=== PATIENT | male | born 1930 | race Caucasian/White ===

== ENCOUNTER 2017-11-07 16:28 | Emergency (ER) | payer MEDICARE, OTHER ==
[2017-11-07] MEDS ORDERED: Metoclopramide 10 MG Tab PO ONE (17:30)
--- NOTE | 2017-11-07 17:36 | EDM.PDOC ---
ED HPI GENERAL MEDICAL PROBLEM - General Chief Complaint: Neurological Problem Stated Complaint: DIZZINESS Time Seen by Provider: 11/07/17 17:20 Source of Information: Reports: Patient, Family (spouse) History Limitations: Reports: No Limitations - History of Present Illness INITIAL COMMENTS - FREE TEXT/NARRATIVE: 87-year-old male presents to the ED with acute onset of vertigo this afternoon. It occurred after he got up from his easy chair where he had been watching football game. He got up and started to walk towards his who was setting up Scrabble game when he suddenly became very vertiginous and she had to help him back to the chair before he fell down. He never did vomit. It's the room was spinning. He is not as this sensation before. Of note he does wear bilateral hearing aids. He has not noticed any increased calming buzzing ringing or tinnitus in either ear. He has not recently been sick with any upper respiratory tract infections. When he lies still he is asymptomatic. He did require help to walk to the car to come to the hospital by his . By history he has known vertebrobasilar insufficiency and cannot look upwards or down a deep stairwell are well etc. as it throws him off balance. He does admit to getting dizzy when he gets up in the nighttime to void. But it's not involving a spinning sensation. This represents more orthostatic hypotensive changes. 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 (see below) (None.) - Related Data Allergies Allergy/AdvReac Type Severity Reaction Status Date / Time azithromycin [From Zithromax] Allergy Ringing in Verified 11/07/17 16:54 the Ears Home Meds: Home Meds Bimatoprost [LUMIGAN 0.01% Ophth Soln] 11/07/17 [History] Finasteride [Finasteride] 11/07/17 [History] Lisinopril [Prinivil] 10 mg PO DAILY 11/07/17 [History] Terazosin [Hytrin] 1 mg PO BID 11/07/17 [History] Past Medical History HEENT History: Reports: Glaucoma, Hard of Hearing (Wears a hearing aid in both ears.), Macular Degeneration Cardiovascular History: Reports: High Cholesterol, Hypertension, Other (See Below) (Has known vertebrobasilar insufficiency. Gets very lightheaded and dizzy when he hyperextends his neck or Hyperflex is his neck.) Social & Family History - Tobacco Use Smoking Status *Q: Unknown Ever Smoked - Living Situation & Occupation Living situation: Reports: Occupation: Retired ED ROS GENERAL - Review of Systems Review Of Systems: See Below Constitutional: Denies: Fever, Chills, Malaise, Weakness, Fatigue, Decreased Appetite, Weight Loss HEENT: Reports: Glasses, Hearing Loss (Wears hearing aid in both ears.), Vertigo Respiratory: Reports: Shortness of Breath. Denies: Wheezing, Pleuritic Chest Pain (On exertion.), Cough, Sputum Cardiovascular: Reports: Blood Pressure Problem, Dyspnea on Exertion, Lightheadedness (Usually when he gets up during the night to void suggesting some orthostasis. He's never been). Denies: Chest Pain, Claudication (Tends to run a bit high.), Edema ( to pass out.), Orthopnea, Palpitations (Chronically) Endocrine: Reports: Fatigue (Mild fatigue) GI/Abdominal: Reports: Constipation (Occasional issues with hard stools). Denies: Abdominal Pain : Reports: Other (Nocturia usually 3 has known BPH.) Musculoskeletal: Reports: Neck Pain (Knees and hips at times at times has neck pain. Has known vertebrobasilar insufficiency.), Back Pain, Joint Pain Skin: Reports: No Symptoms Neurological: Reports: Dizziness (When he gets up quickly from a seated position or gets up from sleep in the night he gets lightheaded and dizzy.), Difficulty Walking (Only today with the development of vertigo and ataxia.), Gait Disturbance. Denies: Change in Speech Psychiatric: Reports: No Symptoms (Again note only today when he developed vertigo.) Hematologic/Lymphatic: Reports: No Symptoms Immunologic: Reports: No Symptoms ED EXAM, DIZZINESS - Physical Exam Exam: See Below Exam Limited By: No Limitations General Appearance: Alert, WD/WN, No Apparent Distress Eye Exam: Right Eye: Nystagmus (Mild sustained nystagmus on right lateral gaze.) , Bilateral Eye: PERRL Nystagmus: worsens with head to L, reproducible, short duration Ears: Canal Material (Large amount of cerumen is impacted against the eardrum on the left side. Mild on the right side. Could not visualize the tympanic membrane on the left. Of note he wears hearing aids bilaterally which causes the cerumen to stay impacted.) Throat/Mouth: Normal Inspection, Normal Lips, Normal Teeth, Other (Uvula is in the midline.) Head Exam: Atraumatic, Normocephalic Neck: Normal Inspection, Limited Range of Motion, Tender Lateral (From C4-C7 bilaterally.). No: Full Range of Motion, Lymphadenopathy (L), Lymphadenopathy ( R) Respiratory/Chest: No Respiratory Distress, Lungs Clear, Normal Breath Sounds, Decreased Breath Sounds (Breath sounds are minimally decreased in the bases) Cardiovascular: Regular Rate, Rhythm, No Edema, No Gallop, No Murmur, No Rub. No: Normal Peripheral Pulses Neurological: Alert, Normal Mood/Affect, CN II-XII Intact, Oriented x 3, Other ( No pronator drift.). No: Abnormal Finger to Nose, Abnormal Motor (No pronator drift. Normal rapid alternating movements) Extremities: Normal Inspection, Normal Range of Motion, Non-Tender, No Pedal Edema Psychiatric: Normal Affect, Normal Mood Skin Exam: Warm, Dry, Intact, Normal Color, No Rash Course - Vital Signs Last Recorded V/S: Last Vital Signs Temp 36.2 C 11/07/17 16:49 Pulse 60 11/07/17 16:49 Resp 18 11/07/17 16:49 BP Pulse Ox 97 11/07/17 16:49 - Orders/Labs/Meds Orders: Active Orders 24 hr Category Date Time Status Ear Irrigation [RC] ASDIRECTED Care 11/07/17 17:29 Active Labs: Laboratory Tests 11/07/17 11/07/17 Range/Units 17:41 17:41 WBC 5.70 (4.23-9.07) K/mm3 RBC 4.08 L (4.63-6.08) M/mm3 Hgb 12.2 L (13.7-17.5) gm/L Hct 36.9 L (40.1-51.0) % MCV 90.4 (79.0-92.2) fl MCH 29.9 (25.7-32.2) pg MCHC 33.1 (32.2-35.5) g/dl RDW Std Deviation 44.4 H (35.1-43.9) fL Plt Count 208 (163-337) K/mm3 MPV 9.4 (9.4-12.3) fl Neutrophils % (Manual) 61 H (40-60) % Band Neutrophils % 0 (0-10) % Lymphocytes % (Manual) 25 (20-40) % Atypical Lymphs % 0 % Monocytes % (Manual) 9 (2-10) % Eosinophils % (Manual) 5 (0.8-7.0) % Basophils % (Manual) 0 L (0.2-1.2) Platelet Estimate Adequate Plt Morphology Comment Normal RBC Morph Comment Normal Sodium 137 (136-145) mEq/L Potassium 4.4 (3.5-5.1) mEq/L Chloride 105 (98-107) mEq/L Carbon Dioxide 25 (21-32) mEq/L Anion Gap 11.4 (5-15) BUN 19 H (7-18) mg/dL Creatinine 0.9 (0.7-1.3) mg/dL Est Cr Clr Drug Dosing 57.83 mL/min Estimated GFR (MDRD) > 60 (>60) mL/min BUN/Creatinine Ratio 21.1 H (14-18) Glucose 104 (83-115) mg/dL Calcium 8.4 L (8.5-10.1) mg/dL Magnesium 2.1 (1.8-2.4) mg/dl Total Bilirubin 0.3 (0.2-1.0) mg/dL AST 17 (15-37) U/L ALT 17 (16-63) U/L Alkaline Phosphatase 50 (46-116) U/L Total Protein 6.4 (6.4-8.2) g/dl Albumin 3.1 L (3.4-5.0) g/dl Globulin 3.3 gm/dL Albumin/Globulin Ratio 0.9 L (1-2) Meds: Medications Discontinued Medications Generic Name Dose Route Start Last Admin Trade Name Julita PRN Reason Stop Dose Admin Gentamicin Sulfate 2.5 ml 11/07/17 18:47 11/07/17 18:59 Garamycin 0.3% Lisa CASE 11/07/17 18:48 2 drop ONETIME ONE Administration Metoclopramide HCl 10 mg 11/07/17 17:30 11/07/17 17:50 Reglan PO 11/07/17 17:31 10 mg ONETIME ONE Administration - Radiology Interpretation Free Text/Narrative:: 87-year-old male presents the ED with an acute onset of vertigo this afternoon after getting up from the seated position. He was walking towards the table where his would set up a Scrabble game when he developed severe vertigo with the room spinning. This caused him to feel very off balance and his had to eat him back to the chair. Once he stops moving his vertigo goes away. He has no associated headache nausea or vomiting. He did require help walking up to the car to come to the hospital. At rest he again he has no symptoms. Examination reveals cerumen impaction on the left ear up against his eardrum which will be irrigated. Routine labs to be performed as his neuro exam is completely normal. I see no evidence of cerebrovascular accident on neuro exam. 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 Plan routine labs. Reglan 10 mg orally. Irrigation left ear canal - Re-Assessments/Exams Free Text/Narrative Re-Assessment/Exam: 11/07/17 18:15 Labs are back and reveal a normal white count at 5.70. Differential shows 61% neutrophils no bands. Hemoglobin is 12.2 with hematocrit of 36.9. Platelets are 208,000. Chemistry shows a sodium of 137. Potassium 4.4. Chloride 105. Bicarbonate 25. And a gap is normal at 11.4. BUNs 19. Creatinine is 0.9. Glucose is 104 calcium is 8.4 magnesium is normal at 2.1. Liver function normal. Albumin slightly low at 3.1. 11/07/17 18:50: Got him up walking and he actually did quite well. He is listing very mildly to the right side. He states he is way better than he was. He will therefore be discharged home on Antivert 12.5 mg every 8 hours for the next 5 days. When I did look at his left ear canal there is a large piece of skin that is denuded from the posterior ear canal after ear irrigation. I think he is at risk therefore an otitis externa and will place him on gentamicin eardrops 2 drops to the left ear for 3 times a day for 5 days to prevent infection. He will keep his hearing aid out of that ear until he is done with the drops. Follow-up as needed particularly if not markedly improved her symptoms persist after 5 days of Antivert. Departure - Departure Time of Disposition: 18:47 Disposition: Home, Self-Care 01 Condition: Fair Clinical Impression: Benign paroxysmal vertigo of left ear Left otitis externa Qualifiers: Otitis externa type: unspecified type Chronicity: acute Qualified Code(s): H60.502 - Unspecified acute noninfective otitis externa, left ear - Discharge Information Instructions: Otitis Externa, [id number], Vertigo, [id number] Referrals: Kelly Graham MD [Primary Care Provider] - Forms: ED Department Discharge Additional Instructions: Evaluation the emergency room today due to development of sudden onset of severe vertigo i.e. spinning sensation with loss of balance and swimming vision. Examination revealed no signs or evidence of stroke. Did identify the left ear canal was filled with ear wax pushed up against her eardrum which may or may not be the cause of the problem. It was irrigated out of your ear and I can easily see the eardrum at this time. However a piece of skin was also removed from the ear canal when the ear wax came out. This may become infected and therefore I would suggest use of gentamicin eardrops 2 drops to the left ear 3 times daily for the next 5 days to prevent any infection from occurring. These drops will be sent home with you from the hospital. I would suggest use of Antivert or meclizine which is [id number] medication and can be purchased at [facility]. Suggest using 12.5 mg or 1 tablet every 8 hours for the next 5 days to prevent or control vertigo symptoms. First tablet would be due at 10:00 tonight. Follow-up with personal physician if you're not completely back to normal in 6-7 days time. May start to wear your left hearing aid again in 5 days time - My Orders Last 24 Hours: My Active Orders 11/07/17 17:29 Ear Irrigation [RC] ASDIRECTED - Assessment/Plan Last 24 Hours: My Active Orders 11/07/17 17:29 Ear Irrigation [RC] ASDIRECTED
[2017-11-07] MEDS ORDERED: Gentamicin 0.3% Ophth Soln 15 ML Bottle EARLF ONE (18:47)
== END 2017-11-07 19:00 | disposition home or self-care (01) ==
LOC: JD.ED 16:28
DX: H81.12 Benign paroxysmal vertigo, left ear (principal); H60.502 Unspecified acute noninfective otitis externa, left ear; Z88.1 Allergy status to other antibiotic agents
CPT/HCPCS: 36415; 80053; 83735; 85025; 99284; A9270; 69209; 99283-25

== ENCOUNTER → 2018-07-26 | Day surgery (SDC) | payer MEDICARE, OTHER ==
[~2018-07-26] MED LIST: Phenylephrine 2.5% Ophth Soln 2 ML Bot EYELF SCH; Tropicamide 1% Ophth Soln 15 ML Bottle EYELF SCH
[2018-07-26] MEDS: Brimonidine 0.2% Ophth Soln 5 ML Bottle EYELF SCH ×2 (08:56→09:44)
== END ==
LOC: JD.SDS 08:38
PROVIDERS: ATTEND Ophthalmology
DX: H26.492 Other secondary cataract, left eye (principal); Z88.1 Allergy status to other antibiotic agents

== ENCOUNTER 2019-07-08 07:53 | Emergency (ER) | payer MEDICARE, OTHER ==
--- NOTE | 2019-07-08 09:35 | EDM.PDOC ---
ED HPI GENERAL MEDICAL PROBLEM - General Chief Complaint: Genitourinary Problem Stated Complaint: UTI Time Seen by Provider: 07/08/19 08:28 Source of Information: Reports: Patient History Limitations: Reports: No Limitations - History of Present Illness INITIAL COMMENTS - FREE TEXT/NARRATIVE: The patient presents for a possible UTI. This started last night. He has urgency to urinate but he tries and nothing happens. He says then he lays down and some urine just comes out. He has no dysuria and he has no abdominal pain. He does have some diarrhea that comes out when he is pushing. He has no fever , chills, cough, chest pain, shortness of breath, nausea or vomiting. This has never happened before. Onset: Gradual Duration: Hour(s): Severity: Mild Improves with: Reports: None Worsens with: Reports: None Associated Symptoms: Reports: No Other Symptoms - Related Data Allergies Allergy/AdvReac Type Severity Reaction Status Date / Time azithromycin [From Zithromax] AdvReac Ringing in Verified 07/08/19 08:27 the Ears Home Meds: Home Meds Finasteride 5 mg PO DAILY 11/07/17 [History] Lisinopril [Prinivil] 10 mg PO DAILY 11/07/17 [History] Terazosin [Hytrin] 1 mg PO BID 11/07/17 [History] Vit A/C/E AC/Znox/Cupric Oxide [Eye Vitamin-Minerals Tablet] 1 tab PO DAILY [History] amLODIPine Besylate [Amlodipine Besylate] 5 mg PO DAILY 07/25/18 [History] Past Medical History HEENT History: Reports: Glaucoma, Hard of Hearing (Wears a hearing aid in both ears.), Macular Degeneration Cardiovascular History: Reports: High Cholesterol, Hypertension, Other (See Below) (Has known vertebrobasilar insufficiency. Gets very lightheaded and dizzy when he hyperextends his neck or Hyperflex is his neck.) Social & Family History - Living Situation & Occupation Living situation: Reports: Occupation: Retired ED ROS GENERAL - Review of Systems Review Of Systems: See Below Constitutional: Reports: No Symptoms HEENT: Reports: No Symptoms Respiratory: Reports: No Symptoms Cardiovascular: Reports: No Symptoms Endocrine: Reports: No Symptoms GI/Abdominal: Reports: No Symptoms : Reports: Urgency. Denies: Dysuria ED EXAM, RENAL/ - Physical Exam Exam: See Below Exam Limited By: No Limitations General Appearance: Alert, No Apparent Distress Ears: Normal External Exam Nose: Normal Inspection Head: Atraumatic, Normocephalic Neck: Normal Inspection Respiratory/Chest: No Respiratory Distress, Lungs Clear, Normal Breath Sounds Cardiovascular: Regular Rate, Rhythm, No Edema, No Murmur GI/Abdominal: Soft, Non-Tender, No Organomegaly, No Mass Back Exam: Normal Inspection Extremities: Normal Inspection Course - Vital Signs Last Recorded V/S: Last Vital Signs Temp 96.6 F 07/08/19 08:24 Pulse 73 07/08/19 08:24 Resp 16 07/08/19 08:24 BP 165/78 H 07/08/19 08:24 Pulse Ox 95 07/08/19 08:24 - Orders/Labs/Meds Orders: Active Orders 24 hr Category Date Time Status Martinez Catheter Insertion [Insert Urinary Catheter] [OM. Care 07/08/19 09:45 Ordered PC] Q24H Urinary Catheter Assessment [RC] ASDIRECTED Care 07/08/19 09:39 Active UA W/MICROSCOPIC [URIN] Stat Lab 07/08/19 09:43 Results Labs: Laboratory Tests 07/08/19 Range/Units 09:43 Urine Color Yellow (Yellow) Urine Appearance Clear (Clear) Urine pH 7.0 (5.0-8.0) Ur Specific Fleming 1.015 (1.005-1.030) Urine Protein Negative (Negative) Urine Glucose (UA) Negative (Negative) Urine Ketones Negative (Negative) Urine Occult Blood Negative (Negative) Urine Nitrite Negative (Negative) Urine Bilirubin Negative (Negative) Urine Urobilinogen 0.2 (0.2-1.0) Ur Leukocyte Esterase Negative (Negative) - Re-Assessments/Exams Free Text/Narrative Re-Assessment/Exam: 07/08/19 09:38 My nurse did a bladder scan and there is greater then 600mls. I have ordered a martinez cath and a UA. 07/08/19 10:15 The UA shows no UTI. I will discharge him with the martinez cath and a leg bag and follow up with Dr Graham. Departure - Departure Time of Disposition: 10:20 Disposition: Home, Self-Care 01 Condition: Good Clinical Impression: Urinary retention - Discharge Information *PRESCRIPTION DRUG MONITORING PROGRAM REVIEWED*: No *COPY OF PRESCRIPTION DRUG MONITORING REPORT IN PATIENT MIRTA: No Referrals: Kelly Graham MD [Primary Care Provider] - 1 Week Forms: ED Department Discharge Additional Instructions: Keep this catheter in until you see your doctor. Please return if you are worse. - My Orders Last 24 Hours: My Active Orders 07/08/19 09:39 Urinary Catheter Assessment [RC] ASDIRECTED 07/08/19 09:43 UA W/MICROSCOPIC [URIN] Stat 07/08/19 09:45 Martinez Catheter Insertion [Insert Urinary Catheter] [OM.PC] Q24H - Assessment/Plan Last 24 Hours: My Active Orders 07/08/19 09:39 Urinary Catheter Assessment [RC] ASDIRECTED 07/08/19 09:43 UA W/MICROSCOPIC [URIN] Stat 07/08/19 09:45 Martinez Catheter Insertion [Insert Urinary Catheter] [OM.PC] Q24H
== END 2019-07-08 10:15 | disposition home or self-care (01) ==
LOC: JD.ED 07:53
DX: R33.9 Retention of urine, unspecified (principal); I10 Essential (primary) hypertension; E78.00 Pure hypercholesterolemia, unspecified; Z79.899 Other long term (current) drug therapy; Z88.1 Allergy status to other antibiotic agents
CPT/HCPCS: 51702; 51798; 81001; 99283

== ENCOUNTER 2019-07-28 22:55 | Inpatient (IN) | payer MEDICARE, OTHER ==
[2019-07-28] MEDS ORDERED: Lactated Ringers 1,000 ML IV ONE (23:58)
--- NOTE | 2019-07-29 00:01 | EDM.PDOC ---
ED HPI GENERAL MEDICAL PROBLEM - General Chief Complaint: Abdominal Pain Stated Complaint: GER AMBULANCE Time Seen by Provider: 07/28/19 23:34 Source of Information: Reports: Patient, Family (, daughter), Old Records ( ED visit 07/08/2019) History Limitations: Reports: No Limitations - History of Present Illness INITIAL COMMENTS - FREE TEXT/NARRATIVE: Mr. 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 Medical records indicate that he was seen in this ED on 07/08/2019 with what turned out to be urinary retention. A Grayson catheter was placed, which was removed yesterday by his Urologist. After removal, the patient was instructed to go to lunch and drink plenty of fluid, which he did, and when he returned to the Urologist's office, there was greater than 400 mL of urine in the patient's bladder, according to a bladder scan. The Urologist was going to replace the patient's Grayson catheter, however, the patient then urinated, and a repeat bladder scan found only about 180 mL of urine, therefore the Grayson was not replaced. The patient now returns to the ED after he had increased unsteadiness on his feet tonight. He has had cold sweats, but no fever. He has had decreased energy. No recent nausea, vomiting, constipation, or diarrhea. No recent chest pain, palpitations, or dyspnea. Shortly after arrival to the ED, a bladder scan was performed, finding greater than 700 mL of urine. A Grayson catheter has been placed. The patient's PCP is Dr. Kelly Graham. His Urologist is Dr. Reji Del Toro. Bilateral Lower Abdomen Pain Score (Numeric/FACES): 4 - Related Data Allergies Allergy/AdvReac Type Severity Reaction Status Date / Time azithromycin [From Zithromax] AdvReac Ringing in Verified 07/28/19 23:04 the Ears Home Meds: Home Meds Finasteride 5 mg PO DAILY 11/07/17 [History] Lisinopril [Prinivil] 10 mg PO DAILY 11/07/17 [History] Terazosin [Hytrin] 1 mg PO BID 11/07/17 [History] Vit A/C/E AC/Znox/Cupric Oxide [Eye Vitamin-Minerals Tablet] 1 tab PO DAILY [History] amLODIPine Besylate [Amlodipine Besylate] 5 mg PO DAILY 07/25/18 [History] Polyethylene Glycol [Polyox Wsr-301] 17 gm PO DAILY 07/28/19 [History] Tamsulosin [Tamsulosin 24 Hr] 0.4 mg PO DAILY 07/28/19 [History] Past Medical History HEENT History: Reports: Glaucoma, Hard of Hearing, Impaired Vision, Macular Degeneration Cardiovascular History: Reports: High Cholesterol, Hypertension, Other (See Below) (Vertebrobasilar insufficiency) Genitourinary History: Reports: BPH - Past Surgical History HEENT Surgical History: Reports: Cataract Surgery (bilateral) Social & Family History - Tobacco Use Smoking Status *Q: Former Smoker Month/Year Tobacco Last Used: Quit around 1974 - Caffeine Use Caffeine Use: Reports: Coffee - Alcohol Use Alcohol Use History: Yes Alcohol Use Frequency: Rarely - Recreational Drug Use Recreational Drug Use: No - Living Situation & Occupation Living situation: Reports: , with Spouse Occupation: Retired ED ROS GENERAL - Review of Systems Review Of Systems: ROS reveals no pertinent complaints other than HPI. ED EXAM, RENAL/ - Physical Exam Exam: See Below Exam Limited By: No Limitations General Appearance: Alert, WD/WN, No Apparent Distress Eye Exam: Bilateral Eye: EOMI, Normal Inspection Ears: Normal External Exam, Hearing Loss Nose: Normal Inspection Throat/Mouth: Normal Inspection, Normal Lips, Normal Voice, No Airway Compromise , Other (Dry oral mucosa) Head: Atraumatic, Normocephalic Neck: Normal Inspection, Full Range of Motion Respiratory/Chest: No Respiratory Distress, Lungs Clear, Normal Breath Sounds, No Accessory Muscle Use Cardiovascular: Normal Peripheral Pulses, Regular Rate, Rhythm, No Edema, No Gallop, No JVD, No Murmur, No Rub GI/Abdominal: Normal Bowel Sounds, Soft, No Organomegaly, No Distention, No Abnormal Bruit, No Mass, Tender (Mild, suprapubic only. Nontender elsewhere.) (Male) Exam: Deferred Rectal (Males) Exam: Deferred Back Exam: Normal Inspection, Full Range of Motion, NT Extremities: Normal Inspection, Normal Range of Motion, No Pedal Edema, Normal Capillary Refill Neurological: Alert, Oriented, Normal Cognition, Normal Gait, No Motor/Sensory Deficits Psychiatric: Normal Affect Skin Exam: Warm, Dry, Intact, Normal Color, No Rash Course - Vital Signs Last Recorded V/S: Last Vital Signs Temp 36.9 C 07/28/19 23:00 Pulse 93 07/28/19 23:00 Resp 16 07/28/19 23:00 BP 154/72 H 07/28/19 23:00 Pulse Ox 90 L 07/28/19 23:00 - Orders/Labs/Meds Orders: Active Orders 24 hr Category Date Time Status Grayson Catheter Insertion [Insert Urinary Catheter] [OM. Care 07/28/19 23:45 Ordered PC] Q24H Urinary Catheter Assessment [RC] ASDIRECTED Care 07/28/19 23:42 Active CULTURE URINE [RM] Stat Lab 07/28/19 23:40 Received Lactated Ringers [Ringers, Lactated] 1,000 ml Med 07/29/19 01:45 Active IV ASDIRECTED Medication Orders Lactated Ringer's (Ringers, Lactated) 1,000 mls @ 250 mls/hr IV ASDIRECTED CASTILLO Labs: Laboratory Tests 07/28/19 07/28/19 Range/Units 23:59 23:59 WBC 16.01 H (4.23-9.07) K/mm3 RBC 3.60 L (4.63-6.08) M/mm3 Hgb 10.3 L D (13.7-17.5) gm/dl Hct 30.9 L (40.1-51.0) % MCV 85.8 D (79.0-92.2) fl MCH 28.6 (25.7-32.2) pg MCHC 33.3 (32.2-35.5) g/dl RDW Std Deviation 43.7 (35.1-43.9) fL Plt Count 276 (163-337) K/mm3 MPV 8.8 L (9.4-12.3) fl Neutrophils % (Manual) 88 H (40-60) % Band Neutrophils % 0 (0-10) % Lymphocytes % (Manual) 7 L (20-40) % Atypical Lymphs % 0 % Monocytes % (Manual) 4 (2-10) % Eosinophils % (Manual) 1 (0.8-7.0) % Basophils % (Manual) 0 L (0.2-1.2) Platelet Estimate Adequate RBC Morph Comment Normal Sodium 128 L (136-145) mEq/L Potassium 4.7 (3.5-5.1) mEq/L Chloride 97 L (98-107) mEq/L Carbon Dioxide 20 L (21-32) mEq/L Anion Gap 15.7 H (5-15) BUN 34 H (7-18) mg/dL Creatinine 2.2 H D (0.7-1.3) mg/dL Est Cr Clr Drug Dosing 23.96 mL/min Estimated GFR (MDRD) 28 (>60) mL/min BUN/Creatinine Ratio 15.5 (14-18) Glucose 165 H (83-115) mg/dL Calcium 8.7 (8.5-10.1) mg/dL Magnesium 1.9 (1.8-2.4) mg/dl Total Bilirubin 0.5 (0.2-1.0) mg/dL AST 14 L (15-37) U/L ALT 13 L (16-63) U/L Alkaline Phosphatase 64 (46-116) U/L Total Protein 6.5 (6.4-8.2) g/dl Albumin 2.8 L (3.4-5.0) g/dl Globulin 3.7 gm/dL Albumin/Globulin Ratio 0.8 L (1-2) Meds: Medications Generic Name Dose Route Start Last Admin Trade Name Freq PRN Reason Stop Dose Admin Lactated Ringer's 1,000 mls @ 250 mls/hr 07/29/19 01:45 Ringers, Lactated IV ASDIRECTED CASTILLO Discontinued Medications Generic Name Dose Route Start Last Admin Trade Name Freq PRN Reason Stop Dose Admin Lactated Ringer's 1,000 mls @ 999 mls/hr 07/28/19 23:58 07/29/19 00:04 Ringers, Lactated IV 07/29/19 00:58 999 mls/hr .BOLUS ONE Administration - Re-Assessments/Exams Free Text/Narrative Re-Assessment/Exam: 07/28/19 23:55 The patient has progressively worsening unsteadiness on his feet that is likely due to his previously diagnosed vertebrobasilar insufficiency, and unlikely related to his urinary retention. A bladder scan performed here in the ED tonight found greater than 700 mL of urine, therefore a Grayson catheter has been placed, and is draining demetrius urine. I have ordered a urine culture, but because he had a Grayson catheter as recently as yesterday, a urinalysis would be abnormal and uninterpretable. The patient smells dry, and his oral mucosa are dry. I wonder if he may have decreased his fluid intake out of fear of having to urinate. I have therefore ordered some blood work, and will infuse a liter of IV fluid. 07/29/19 01:07 The patient's CBC is remarkable for a WBC count elevated at 16.01, but with 0% bandemia. His H/H are modestly depressed at 10.3/30.9. The remainder of his CBC is unremarkable. His CMP is remarkable for sodium depressed at 128, bicarbonate depressed at 20, BUN/Cr elevated at 34/2.2, and a blood glucose elevated at 165. His anion gap is modestly elevated at 15.7. The remainder of his CMP is unremarkable. His magnesium level is within normal limits at 1.9. The patient's BUN/Cr were 19/0.9 on 11/07/2017. He appears to have a metabolic acidosis, possibly related to his renal failure. While he is likely intravascularly depleted, he is hyponatremic, indicating a free water excess. This is not something that will correct with only 1 L of IV fluid, therefore I am going to recommend placement into observation for continued IV hydration. 07/29/19 01:15 Test results, and my recommendation for placement into observation, discussed with the patient, his , and daughter. They agreed. Case then discussed with Dr. Dejesus at 01:14. He agreed to place the patient into observation, and asked that I write bridge orders. Departure - Departure Time of Disposition: 01:16 Disposition: Refer to Observation Condition: Good Clinical Impression: Intravascular volume depletion, Hyponatremia, Acute renal failure, Metabolic acidosis, Hyperglycemia, Urinary retention due to benign prostatic hyperplasia - Discharge Information *PRESCRIPTION DRUG MONITORING PROGRAM REVIEWED*: Not Applicable *COPY OF PRESCRIPTION DRUG MONITORING REPORT IN PATIENT MRITA: Not Applicable Referrals: Kelly Graham MD [Primary Care Provider] - Reji Del Toro MD [Ordering Only Provider] - - My Orders Last 24 Hours: My Active Orders 07/28/19 23:40 CULTURE URINE [RM] Stat 07/28/19 23:42 Urinary Catheter Assessment [RC] ASDIRECTED 07/28/19 23:45 Grayson Catheter Insertion [Insert Urinary Catheter] [OM.PC] Q24H 07/29/19 01:45 Lactated Ringers [Ringers, Lactated] 1,000 ml IV ASDIRECTED - Assessment/Plan Last 24 Hours: My Active Orders 07/28/19 23:40 CULTURE URINE [RM] Stat 07/28/19 23:42 Urinary Catheter Assessment [RC] ASDIRECTED 07/28/19 23:45 Grayson Catheter Insertion [Insert Urinary Catheter] [OM.PC] Q24H 07/29/19 01:45 Lactated Ringers [Ringers, Lactated] 1,000 ml IV ASDIRECTED
[2019-07-29] MEDS ORDERED: Lactated Ringers 1,000 ML IV SCH (01:45)
[2019-07-29] MEDS: Lactated Ringers 1,000 ML IV SCH ×2 (02:34→08:49)
[2019-07-29 05:06] LABS: HEMOGLOBIN A1C 6.1 % (4.50-6.20)
--- NOTE | 2019-07-29 07:32 | PCM.HP.2 ---
H&P History of Present Illness - General Date of Service: 07/29/19 Admit Problem/Dx: Admission Diagnosis/Problem Admission Diagnosis/Problem Acute kidney injury Source of Information: Patient, Old Records, Provider, RN Notes Reviewed History Limitations: Reports: Physical Impairment, Other (Hearing Impairment) - History of Present Illness Initial Comments - Free Text/Narative: This is an 88 yo elderly white male with past medical hx/o Impaired Vision/ Hearing, HTN, HLD, BPH, Vertebrobasilar Insufficiency and Gait Instability who presented to ED last night for evaluation of urinary retention associated with increased unsteadiness, chills and decreased energy. He was recently seen in ED on 07/08/2019 due to significant urinary retention and was discharged with a martinez catheter. He was evaluated by urology a couple of days ago for catheter removal. At that time, he was able to void before he left the clinic. Unfortunately, he had trouble voiding since then. In ED, he had retained bladder urine of > 700 ml therefore a catheter was put in to relieve urinary retention. His initial work up in ED showed a CBC remarkable for WBC of 16.01, RBC of 3.60 , Hgb of 10.3, Hct of 30.9, MPV of 8.8, Neutrophils of 88%, and Lymphocytes of 7 %. His Chemistry was significant for Na of 128, Cl of 97, CO2 of 20, AG of 15.7 , BUN of 34, Cr of 2.2, BS of 65, AST of 14, ALT of 13 and Albumin of 2.8. Patient was admitted overnight to [facility] due to acute kidney injury and acute urinary retention. Bilateral Lower Abdomen Pain Score (Numeric/FACES): 0 - Related Data Allergies/Adverse Reactions: Allergies Allergy/AdvReac Type Severity Reaction Status Date / Time azithromycin [From Zithromax] AdvReac Ringing in Verified 07/29/19 03:21 the Ears Home Medications: Home Meds Finasteride 5 mg PO BID 11/07/17 [History] Lisinopril [Prinivil] 10 mg PO BID 11/07/17 [History] Terazosin [Hytrin] 1 mg PO BID 11/07/17 [History] amLODIPine Besylate [Amlodipine Besylate] 5 mg PO DAILY 07/25/18 [History] Polyethylene Glycol [Polyox Wsr-301] 17 gm PO DAILY 07/28/19 [History] Tamsulosin [Tamsulosin 24 Hr] 0.4 mg PO DAILY 07/28/19 [History] Bimatoprost [LUMIGAN 0.01% Ophth Soln] 1 drop EYEBOTH DAILY 07/29/19 [History] Polyethylene Glycol 3350 [MiraLAX] 17 gm PO DAILY 07/29/19 [History] Vit A/Vit C/Vit E/Zinc/Copper [Preservision] 1 cap PO BID 07/29/19 [History] Past Medical History HEENT History: Reports: Glaucoma, Hard of Hearing, Impaired Vision, Macular Degeneration, Other (See Below) Other HEENT History: wears hearing aides bilaterally however still hard of hearing with those, has glasses and a full set of dentures. Cardiovascular History: Reports: High Cholesterol, Hypertension, Other (See Below) Respiratory History: Reports: None Gastrointestinal History: Reports: None Genitourinary History: Reports: BPH Musculoskeletal History: Reports: None Neurological History: Reports: TIA Psychiatric History: Reports: None Endocrine/Metabolic History: Reports: None Hematologic History: Reports: None Immunologic History: Reports: None Oncologic (Cancer) History: Reports: None Dermatologic History: Reports: None - Infectious Disease History Infectious Disease History: Reports: Influenza, Measles - Past Surgical History Head Surgeries/Procedures: Reports: None HEENT Surgical History: Reports: Cataract Surgery Respiratory Surgical History: Reports: None Neurological Surgical History: Reports: None Social & Family History - Family History Family Medical History: Noncontributory - Tobacco Use Smoking Status *Q: Former Smoker Years of Tobacco use: 3 Used Tobacco, but Quit: No Month/Year Tobacco Last Used: Quit around 1974 Second Hand Smoke Exposure: No - Caffeine Use Caffeine Use: Reports: Coffee Other Caffeine Use: 1-2 cups every day. - Recreational Drug Use Recreational Drug Use: No - Living Situation & Occupation Living situation: Reports: , with Spouse Occupation: Retired H&P Review of Systems - Review of Systems: Review Of Systems: See Below General: Reports: Chills, Weakness, Other (decreased energy). Denies: Fever, Malaise, Fatigue HEENT: Reports: No Symptoms Pulmonary: Denies: Shortness of Breath, Pleuritic Chest Pain, Hemoptysis Cardiovascular: Denies: Chest Pain, Dyspnea on Exertion, Lightheadedness Gastrointestinal: Reports: Abdominal Pain. Denies: Nausea, Vomiting Genitourinary: Reports: Retention Musculoskeletal: Denies: Neck Pain, Back Pain, Joint Swelling, Muscle Stiffness Skin: Denies: Cyanosis, Diaphoresis, Bruising, Rash, Wound, Lesions Psychiatric: Denies: Depression, Anxiety, Agitation, Hallucinations (Auditory) Neurological: Reports: Weakness, Gait Disturbance. Denies: Confusion, Difficulty Walking Hematologic/Lymphatic: Reports: No Symptoms Immunologic: Reports: No Symptoms Exam - Exam Exam: See Below - Vital Signs Vital Signs: Last Vital Signs Temp 36.7 C 07/29/19 02:01 Pulse 94 07/29/19 02:01 Resp 22 H 07/29/19 02:01 BP 140/66 07/29/19 02:01 Pulse Ox 94 L 07/29/19 02:01 Weight: 79.016 kg - Exam General: Alert, Cooperative, Mild Distress HEENT: Conjunctiva Clear, EACs Clear, EOMI, Mucosa Moist & So-Hi, Nares Patent, Posterior Pharynx Clear, Pupils Equal. No: Hearing Intact Neck: Supple, Trachea Midline Lungs: Clear to Auscultation, Normal Respiratory Effort Cardiovascular: Regular Rate, Regular Rhythm GI/Abdominal Exam: Normal Bowel Sounds, Soft, Non-Tender, No Organomegaly, No Distention, No Abnormal Bruit, No Mass (Male) Exam: Other (indwelling catheter) Rectal (Males) Exam: Deferred Back Exam: Normal Inspection, Decreased Range of Motion Extremities: Normal Inspection, Normal Range of Motion, Non-Tender, No Pedal Edema, Normal Capillary Refill Peripheral Pulses: 2+: Dorsalis Pedis (L), Dorsalis Pedis (R) Skin: Warm, Dry, Intact Neuro Extensive - Mental Status: Normal Mood/Affect. No: Memory Intact Neuro Extensive - Motor, Sensory, Reflexes: CN II-XII Intact (very limited due to impaired hearing), Abnormal Gait Psychiatric: Alert, Normal Affect, Normal Mood - Patient Data Lab Results Last 24 hrs: Laboratory Results - last 24 hr 07/28/19 07/28/19 07/29/19 Range/Units 23:59 23:59 02:20 WBC 16.01 H (4.23-9.07) K/mm3 RBC 3.60 L (4.63-6.08) M/mm3 Hgb 10.3 L D (13.7-17.5) gm/dl Hct 30.9 L (40.1-51.0) % MCV 85.8 D (79.0-92.2) fl MCH 28.6 (25.7-32.2) pg MCHC 33.3 (32.2-35.5) g/dl RDW Std Deviation 43.7 (35.1-43.9) fL Plt Count 276 (163-337) K/mm3 MPV 8.8 L (9.4-12.3) fl Neutrophils % (Manual) 88 H (40-60) % Band Neutrophils % 0 (0-10) % Lymphocytes % (Manual) 7 L (20-40) % Atypical Lymphs % 0 % Monocytes % (Manual) 4 (2-10) % Eosinophils % (Manual) 1 (0.8-7.0) % Basophils % (Manual) 0 L (0.2-1.2) Platelet Estimate Adequate RBC Morph Comment Normal Sodium 128 L (136-145) mEq/L Potassium 4.7 (3.5-5.1) mEq/L Chloride 97 L (98-107) mEq/L Carbon Dioxide 20 L (21-32) mEq/L Anion Gap 15.7 H (5-15) BUN 34 H (7-18) mg/dL Creatinine 2.2 H D (0.7-1.3) mg/dL Est Cr Clr Drug Dosing 23.96 mL/min Estimated GFR (MDRD) 28 (>60) mL/min BUN/Creatinine Ratio 15.5 (14-18) Glucose 165 H (83-115) mg/dL Hemoglobin A1c (4.50-6.20) % Calcium 8.7 (8.5-10.1) mg/dL Magnesium 1.9 (1.8-2.4) mg/dl Total Bilirubin 0.5 (0.2-1.0) mg/dL AST 14 L (15-37) U/L ALT 13 L (16-63) U/L Alkaline Phosphatase 64 (46-116) U/L Total Protein 6.5 (6.4-8.2) g/dl Albumin 2.8 L (3.4-5.0) g/dl Globulin 3.7 gm/dL Albumin/Globulin Ratio 0.8 L (1-2) MRSA (PCR) Negative 07/29/19 07/29/19 Range/Units 04:42 04:42 WBC (4.23-9.07) K/mm3 RBC (4.63-6.08) M/mm3 Hgb (13.7-17.5) gm/dl Hct (40.1-51.0) % MCV (79.0-92.2) fl MCH (25.7-32.2) pg MCHC (32.2-35.5) g/dl RDW Std Deviation (35.1-43.9) fL Plt Count (163-337) K/mm3 MPV (9.4-12.3) fl Neutrophils % (Manual) (40-60) % Band Neutrophils % (0-10) % Lymphocytes % (Manual) (20-40) % Atypical Lymphs % % Monocytes % (Manual) (2-10) % Eosinophils % (Manual) (0.8-7.0) % Basophils % (Manual) (0.2-1.2) Platelet Estimate RBC Morph Comment Sodium 132 L (136-145) mEq/L Potassium 4.3 (3.5-5.1) mEq/L Chloride 100 (98-107) mEq/L Carbon Dioxide 20 L (21-32) mEq/L Anion Gap 16.3 H (5-15) BUN 29 H (7-18) mg/dL Creatinine 1.5 H (0.7-1.3) mg/dL Est Cr Clr Drug Dosing 35.15 mL/min Estimated GFR (MDRD) 44 (>60) mL/min BUN/Creatinine Ratio 19.3 H (14-18) Glucose 137 H (83-115) mg/dL Hemoglobin A1c 6.10 (4.50-6.20) % Calcium 8.3 L (8.5-10.1) mg/dL Magnesium (1.8-2.4) mg/dl Total Bilirubin (0.2-1.0) mg/dL AST (15-37) U/L ALT (16-63) U/L Alkaline Phosphatase (46-116) U/L Total Protein (6.4-8.2) g/dl Albumin (3.4-5.0) g/dl Globulin gm/dL Albumin/Globulin Ratio (1-2) MRSA (PCR) Result Diagrams: 07/30/19 05:39 07/30/19 05:39 Problem List Initiated/Reviewed/Updated: Yes Orders Last 24hrs: Active Orders 24 hr Category Date Time Status Admission Status [Patient Status] [ADT] Routine ADT 07/29/19 01:38 Active Bedrest Bathroom Privileges [RC] ASDIRECTED Care 07/29/19 03:07 Active Martinez Catheter Insertion [Insert Urinary Catheter] [OM. Care 07/28/19 23:45 Ordered PC] Q24H Urinary Catheter Assessment [RC] Care 07/28/19 23:42 Active Regular Diet [DIET] Diet 07/29/19 Breakfast Active CULTURE URINE [RM] Stat Lab 07/28/19 23:40 Received Lactated Ringers [Ringers, Lactated] 1,000 ml Med 07/29/19 02:30 Active IV ASDIRECTED Code Status [Resuscitation Status] Routine Resus Stat 07/29/19 03:04 Ordered Medication Orders Lactated Ringer's (Ringers, Lactated) 1,000 mls @ 250 mls/hr IV ASDIRECTED CASTILLO Last Admin: 07/29/19 02:34 Dose: 250 mls/hr Assessment/Plan Comment:: Assessment: Acute: Acute Kidney Injury - Cr of 2.2-->1.5 and BUN of 34-->44 - GFR of 28l baseline is > 60 in 2017 - Has underlying BPH - Seen urology recently but no treatment received - Continue Finasteride and Flomax - Currently has indwelling martinez catheter - R/o Obstructive Uropathy with Renal U/S - UA to r/o UTI Acute Urinary Retention - Has hx/o BPH - Seen urology but no additional treatment provided - He is already on Finasteride and Flomax-will continue Leukocytosis - WBC of 16.01 w/ 0% Bands - Afebrile - Likely 2/2 Stress Hyponatremia - NA of 128-->132 - AKIS vs Inadequate Intake - He is not on thiazide or SSRI/SNRI - Monitor Increased AG Metabolic Acidosis - 2/2 ANGELI - CO2 of 20 and AG of 15/7--> 16.3 - IV NS for hydration Hyperglycemia - BS of 165-->137 - Check for A1C Chronic: Impaired Vision/Hearing, HTN, HLD, BPH, Vertebrobasilar Insufficiency and Gait Instability Plan: Admitted overnight to [facility] Resume Home Meds Routine AM labs Fall Precautions Regular diet PT/OT to assess and treat DVT/GI Prophylaxis SW/CM for d/c planning Code status: full Additional orders as above Spoke to daughter and would like to have cognitive eval done. Informed her, we would have to keep him until Wednesday. - Mortality Measure Prognosis:: Good
[2019-07-29] MEDS ORDERED: Promethazine 6.25 MG in Sodium Chloride 0.9% 50 ML IV PRN (07:33)
[2019-07-29] MEDS ORDERED: Bisacodyl 5 MG Tab PO PRN (07:33)
[2019-07-29] MEDS ORDERED: Acetaminophen/HYDROcodone 325-5 MG Tab PO PRN (07:33)
[2019-07-29] MEDS ORDERED: Albuterol/Ipratropium 3.0-0.5 MG/3 ML Neb Soln NEB PRN (07:33)
[2019-07-29] MEDS ORDERED: Docusate Sodium 100 MG Cap PO PRN (07:33)
[2019-07-29] MEDS ORDERED: Ondansetron 4 MG/2 ML SDV IV PRN (07:33)
[2019-07-29] MEDS ORDERED: LORazepam 2 MG/ML SDV IV PRN ×2 (07:33→21:17)
[2019-07-29] MEDS ORDERED: HYDROmorphone 0.5 MG/0.5 ML Syringe IVPUSH PRN (07:33)
[2019-07-29] MEDS ORDERED: Temazepam 7.5 MG Cap PO PRN (07:33)
[2019-07-29] MEDS ORDERED: Polyethylene Glycol 3350 Powder 17 GM Packet PO PRN (07:33)
[2019-07-29] MEDS ORDERED: Non-Formulary Medication 1 Each (Polyethylene Glycol [Polyox Wsr-301] 17 GM) PO SCH (09:00)
[2019-07-29] MEDS: Multivitamins with Minerals/Folic Acid/Lutein/Zeaxanth Tab PO SCH ×2 (10:33→20:39)
[2019-07-29] MEDS: Terazosin 1 MG Cap PO SCH ×2 (10:33→20:39)
[2019-07-29] MEDS: Polyethylene Glycol 3350 Powder 17 GM Packet PO SCH (10:33)
[2019-07-29] MEDS: amLODIPine 5 MG Tab PO SCH (10:33)
[2019-07-29] MEDS: Tamsulosin 0.4 MG Cap.ER PO SCH (10:34)
[2019-07-29] MEDS: Finasteride 5 MG Tab PO SCH ×2 (10:34→20:39)
[2019-07-29] MEDS ORDERED: Sodium Chloride 0.9% 250 ML IV ONE ×2 (11:00→11:30)
[2019-07-29] MEDS ORDERED: Iopamidol 755 Mg/ML 100 ML Bottle IVPUSH ONE (11:28)
[2019-07-29] MEDS ORDERED: Sodium Chloride 0.9% 1,000 ML IV SCH (20:30)
[2019-07-29] MEDS: Latanoprost 0.005% Ophth Soln 2.5 ML Bottle EYEBOTH SCH (20:39)
--- NOTE | 2019-07-29 20:41 | PCM.SN ---
- Free Text/Narrative Note: Renal U/S report read as 4 x 4.1 x 5 cm complex mass in the lower pole of the left kidney worrisome for RCC. No hydronephrosis Abdominal/Pelvis CT scan with or w/o contrast report read as multiple liver cysts, horse shoe kidney w/o mass seen in the left kidney, mo ureteral calculus , inflammatory changes around the left collecting system and along the left ureter, opacities in the right lower lobe:atelectasis vs pneumonia, a few loops of dilated jejunum with air fluid levels: ileus vs obstruction, and inflammatory changes around the pancreas and mid-abdomen region may represent pancreatitis. Went over abnormal findings with and daughter at bedside.
[2019-07-30] MEDS ORDERED: Magnesium Hydroxide 400 MG/5 ML Susp 30 ML Cup PO ONE (06:16)
--- NOTE | 2019-07-30 07:20 | PCM.PN ---
- General Info Date of Service: 07/30/19 Admission Dx/Problem (Free Text): Admission Diagnosis/Problem Admission Diagnosis/Problem Acute kidney injury Subjective Update: Follow up Functional Status: Reports: Pain Controlled, Tolerating Diet, Urinating, New Symptoms - Review of Systems General: Denies: Fever, Weakness, Fatigue, Malaise, Chills HEENT: Reports: No Symptoms Pulmonary: Denies: Shortness of Breath Cardiovascular: Denies: Chest Pain, Dyspnea on Exertion, Lightheadedness Gastrointestinal: Denies: Abdominal Pain, Nausea, Vomiting Genitourinary: Reports: No Symptoms Musculoskeletal: Reports: No Symptoms Skin: Reports: No Symptoms Neurological: Denies: Confusion, Difficulty Walking, Weakness, Gait Disturbance Psychiatric: Denies: Depression, Anxiety, Agitation, Hallucinations Systems Review Comment:: No overnight or acute issues. He stats "I think I'm gonna be okay" and "my belly does not hurt anymore". He is afebrile but with leukocytosis. His sodium is now at 133. - Patient Data Vitals - Most Recent: Last Vital Signs Temp 37.4 C 07/29/19 20:37 Pulse 91 07/29/19 20:37 Resp 18 07/29/19 20:37 BP 121/71 07/29/19 20:39 Pulse Ox 93 L 07/29/19 20:37 Weight - Most Recent: 79.016 kg I&O - Last 24 Hours: Intake & Output 07/29/19 07/30/19 07/30/19 22:59 06:59 14:59 Intake Total 1710 Output Total 1100 Balance 610 Lab Results Last 24 Hours: Laboratory Results - last 24 hr 07/29/19 07/30/19 07/30/19 Range/Units 09:30 05:39 05:39 WBC 15.39 H (4.23-9.07) K/mm3 RBC 3.25 L (4.63-6.08) M/mm3 Hgb 9.2 L (13.7-17.5) gm/dl Hct 28.3 L (40.1-51.0) % MCV 87.1 (79.0-92.2) fl MCH 28.3 (25.7-32.2) pg MCHC 32.5 (32.2-35.5) g/dl RDW Std Deviation 44.1 H (35.1-43.9) fL Plt Count 196 D (163-337) K/mm3 MPV 9.6 (9.4-12.3) fl Neut % (Auto) 84.6 H (34.0-67.9) % Lymph % (Auto) 7.0 L (21.8-53.1) % [place] % (Auto) 8.1 (5.3-12.2) % Eos % (Auto) 0 L (0.8-7.0) Baso % (Auto) 0.1 (0.1-1.2) % Neut # (Auto) 13.04 H (1.78-5.38) K/mm3 Lymph # (Auto) 1.07 L (1.32-3.57) K/mm3 [place] # (Auto) 1.24 H (0.30-0.82) K/mm3 Eos # (Auto) 0.00 L (0.04-0.54) K/mm3 Baso # (Auto) 0.01 (0.01-0.08) K/mm3 Sodium 133 L (136-145) mEq/L Potassium 4.0 (3.5-5.1) mEq/L Chloride 102 (98-107) mEq/L Carbon Dioxide 22 (21-32) mEq/L Anion Gap 13.0 (5-15) BUN 20 H (7-18) mg/dL Creatinine 0.9 (0.7-1.3) mg/dL Est Cr Clr Drug Dosing 54.89 mL/min Estimated GFR (MDRD) > 60 (>60) mL/min BUN/Creatinine Ratio 22.2 H (14-18) Glucose 113 (83-115) mg/dL Calcium 7.9 L (8.5-10.1) mg/dL Magnesium 1.9 (1.8-2.4) mg/dl Lipase 98 (73-393) U/L Urine Color Yellow (Yellow) Urine Appearance Clear (Clear) Urine pH 5.5 (5.0-8.0) Ur Specific [place] 1.020 (1.005-1.030) Urine Protein 1+ H (Negative) Urine Glucose (UA) Negative (Negative) Urine Ketones Negative (Negative) Urine Occult Blood 2+ H (Negative) Urine Nitrite Negative (Negative) Urine Bilirubin Negative (Negative) Urine Urobilinogen 0.2 (0.2-1.0) Ur Leukocyte Esterase 1+ H (Negative) Urine RBC 5-10 H (0-5) /hpf Urine WBC 10-20 H (0-5) /hpf Ur Epithelial Cells 0-5 (0-5) /hpf Urine Bacteria Few (FEW) /hpf Urine Mucus Not seen (FEW) /hpf Med Orders - Current: Current Medications Acetaminophen (Tylenol) 650 mg PO Q4H PRN PRN Reason: Pain (Mild 1-3)/fever Hydrocodone Bitart/Acetaminophen ([place] 325-5 Mg) 1 tab PO Q4H PRN PRN Reason: Pain (moderate 4-6) Albuterol/Ipratropium (Duoneb 3.0-0.5 Mg/3 Ml) 3 ml NEB Q4H PRN PRN Reason: Shortness Of Breath/wheezing Last Admin: 07/29/19 12:25 Dose: 3 ml Amlodipine Besylate (Norvasc) 5 mg PO DAILY [facility] Last Admin: 07/29/19 10:33 Dose: 5 mg Bisacodyl (Dulcolax) 5 mg PO DAILY PRN PRN Reason: Constipation Docusate Sodium (Colace) 100 mg PO BID PRN PRN Reason: Constipation Finasteride (Proscar) 5 mg PO BID [facility] Last Admin: 07/29/19 20:39 Dose: 5 mg Hydromorphone HCl (Dilaudid) 0.25 mg IVPUSH Q2H PRN PRN Reason: Pain (severe 7-10) Promethazine HCl 6.25 mg/ (Sodium Chloride) 50.25 mls @ 100 mls/hr IV Q6H PRN PRN Reason: Nausea/Vomiting Sodium Chloride (Normal Saline) 1,000 mls @ 75 mls/hr IV ASDIRECTED [facility] Stop: 07/30/19 09:49 Last Admin: 07/29/19 23:19 Dose: 75 mls/hr Latanoprost (Xalatan 0.005% Ophth Soln) 0 ml EYEBOTH BEDTIME [facility] Last Admin: 07/29/19 20:39 Dose: 1 drop Lorazepam (Ativan) 0.5 mg IV Q6H PRN PRN Reason: Anxiety Ondansetron HCl (Zofran) 4 mg IV Q6H PRN PRN Reason: Nausea/Vomiting Polyethylene Glycol (Miralax) 17 gm PO DAILY [facility] Last Admin: 07/29/19 10:33 Dose: 17 gm Polyethylene Glycol (Miralax) 17 gm PO DAILY PRN PRN Reason: Constipation Senna/Docusate Sodium (Senna Plus) 1 tab PO BID PRN PRN Reason: Constipation Tamsulosin HCl (Flomax) 0.4 mg PO DAILY [facility] Last Admin: 07/29/19 10:34 Dose: 0.4 mg Temazepam (Restoril) 7.5 mg PO BEDTIME PRN PRN Reason: Sleep Terazosin HCl (Hytrin) 1 mg PO BID [facility] Last Admin: 07/29/19 20:39 Dose: 1 mg Vit A/Vit C/Vit E/Selen/Cu/Zn/Lutei (Icaps Mv) 1 tab PO BID [facility] Last Admin: 07/29/19 20:39 Dose: 1 tab Discontinued Medications Lactated Ringer's (Ringers, Lactated) 1,000 mls @ 999 mls/hr IV .BOLUS ONE Stop: 07/29/19 00:58 Last Admin: 07/29/19 00:04 Dose: 999 mls/hr Lactated Ringer's (Ringers, Lactated) 1,000 mls @ 250 mls/hr IV ASDIRECTED [facility] Lactated Ringer's (Ringers, Lactated) 1,000 mls @ 250 mls/hr IV ASDIRECTED [facility] Last Admin: 07/29/19 08:49 Dose: 250 mls/hr Sodium Chloride (Normal Saline) 250 mls @ 499.445 mls/hr IV BOLUS ONE Stop: 07/29/19 11:30 Last Admin: 07/29/19 11:10 Dose: 999 mls/hr Sodium Chloride (Normal Saline) 250 mls @ 499.445 mls/hr IV BOLUS ONE Stop: 07/29/19 12:00 Last Admin: 07/29/19 12:24 Dose: Not Given Iopamidol (Isovue-370 (76%)) 100 ml IVPUSH ONETIME ONE Stop: 07/29/19 11:29 Last Admin: 07/29/19 11:46 Dose: 100 ml Lorazepam (Ativan) 0.6 mg IV Q6H PRN PRN Reason: Anxiety Magnesium Hydroxide (Milk Of Magnesia) 30 ml PO ONETIME ONE Stop: 07/30/19 06:17 Non-Formulary Medication (Polyethylene Glycol [Polyox Wsr-301]) 17 gm PO DAILY [facility] - Exam General: Alert, Cooperative, No Acute Distress HEENT: Pupils Equal, Pupils Reactive, EOMI, Mucous Membr. Moist/[place], Other ( hard of hearing) Neck: Supple Lungs: Clear to Auscultation, Normal Respiratory Effort Cardiovascular: Regular Rate, Regular Rhythm GI/Abdominal Exam: Normal Bowel Sounds, Soft, Non-Tender, No Organomegaly, No Distention, No Abnormal Bruit (Male) Exam: Other (indwelling martinez catheter) Back Exam: Normal Inspection, Decreased Range of Motion Extremities: Normal Inspection, Normal Range of Motion, Non-Tender, No Pedal Edema, Normal Capillary Refill Peripheral Pulses: 2+: Dorsalis Pedis (L), Dorsalis Pedis (R) Skin: Warm, Dry, Intact Neurological: No New Focal Deficit. No: Normal Gait Psy/Mental Status: Alert, Normal Affect, Normal Mood - Problem List Review Problem List Initiated/Reviewed/Updated: Yes - My Orders Last 24 Hours: My Active Orders 07/29/19 07:33 Height and Weight [RC] 04 Up With Assistance [RC] ASDIRECTED Up ad Shaniqua [RC] ASDIRECTED Consult to Case Management/Clear Coat Sprayer [CONS] Routine Consult to Spiritual Care [CONS] Routine OT Evaluation and Treatment [CONS] Routine PT Evaluation and Treatment [CONS] Routine Acetaminophen [Tylenol] 650 mg PO Q4H PRN Acetaminophen/HYDROcodone [[place] 325-5 MG] 1 tab PO Q4H PRN Albuterol/Ipratropium [DuoNeb 3.0-0.5 MG/3 ML] 3 ml NEB Q4H PRN Bisacodyl [Dulcolax] 5 mg PO DAILY PRN Docusate Sodium [Colace] 100 mg PO BID PRN Docusate Sodium/Sennosides [Senna Plus] 1 tab PO BID PRN HYDROmorphone [Dilaudid] 0.25 mg IVPUSH Q2H PRN Ondansetron [Zofran] 4 mg IV Q6H PRN Polyethylene Glycol 3350 [MiraLAX] 17 gm PO DAILY PRN Promethazine [Phenergan] 6.25 mg Sodium Chloride 0.9% [Normal Saline] 50 ml IV Q6H Temazepam [Restoril] 7.5 mg PO BEDTIME PRN 07/29/19 07:34 Intake and Output [RC] 04,16 Oxygen Therapy [RC] PRN VTE/DVT Education [RC] 10,22 Vital Signs [RC] Q4HR Sequential Compression Device [OM.PC] Per Unit Routine 07/29/19 07:35 Antiembolic Devices [RC] 10,07/29/19 07:36 RT Aerosol Therapy [RC] ASDIRECTED 07/29/19 07:38 Retroperitoneal Comp [US] Routine 07/29/19 09:00 Finasteride [Proscar] 5 mg PO BID Multivitamins/Min/FA/Lut/Zeax [ICaps MV] 1 tab PO BID Polyethylene Glycol 3350 [MiraLAX] 17 gm PO DAILY Tamsulosin [Flomax] 0.4 mg PO DAILY Terazosin [Hytrin] 1 mg PO BID amLODIPine [Norvasc] 5 mg PO DAILY 07/29/19 10:55 Abdomen Pelvis w wo Cont [CT] Routine 07/29/19 14:10 IS (RT) [RT Incentive Spirometry] [RC] ASDIRECTED 07/29/19 20:30 Sodium Chloride 0.9% [Normal Saline] 1,000 ml IV ASDIRECTED 07/29/19 21:00 Latanoprost [Xalatan 0.005% Ophth Soln] 0 ml EYEBOTH BEDTIME 07/29/19 21:17 LORazepam [Ativan] 0.5 mg IV Q6H PRN 07/29/19 Breakfast Regular Diet [DIET] 07/30/19 05:39 CBC WITH AUTO DIFF [HEME] AM 07/31/19 05:11 BASIC METABOLIC PANEL,BMP [CHEM] AM CBC WITH AUTO DIFF [HEME] AM MAGNESIUM [CHEM] AM 08/01/19 05:11 BASIC METABOLIC PANEL,BMP [CHEM] AM CBC WITH AUTO DIFF [HEME] AM MAGNESIUM [CHEM] AM 08/02/19 05:11 BASIC METABOLIC PANEL,BMP [CHEM] AM CBC WITH AUTO DIFF [HEME] AM MAGNESIUM [CHEM] AM 08/03/19 05:11 BASIC METABOLIC PANEL,BMP [CHEM] AM CBC WITH AUTO DIFF [HEME] AM MAGNESIUM [CHEM] AM - Plan Plan:: Assessment: Acute: Acute Urinary Retention, Improved - Has hx/o BPH - Seen urology but no additional treatment provided - He is already on Finasteride and Flomax-will continue - Has martinez catheter in Leukocytosis, Improved - WBC of 16.01 w/ 0% Bands; 15.39K - Afebrile - Likely 2/2 Stress Hyponatremia, Improving - NA of 128-->132-->133 - AKIS vs Inadequate Intake - He is not on thiazide or SSRI/SNRI - Monitor UTI/Cystitis - UA not impressive - Has had hx/o catheter use - Urine cx shows GPC - Start IV Rocephin 1 gram daily Hyperglycemia, Improved - BS of 165-->137-->113 - A1C is 6.10 Resolved: S/p Acute Kidney Injury - Cr of 2.2-->1.5-->0.9 and BUN of 34-->44-->20 - GFR of 28l baseline is > 60 in 2017 - Has underlying BPH - Seen urology recently but no treatment received - Continue Finasteride and Flomax - Currently has indwelling martinez catheter; consider removing it in AM - R/o Obstructive Uropathy with Renal U/S - UA mildly positive for infection S/p Increased AG Metabolic Acidosis - 2/2 ANGELI - CO2 of 20 and AG of 15/7--> 16.3 - IV NS for hydration Chronic: Impaired Vision/Hearing, HTN, HLD, BPH, Vertebrobasilar Insufficiency and Gait Instability Plan: He is clinically stable Routine AM labs Fall Precautions Regular diet Cognitive eval in AM per family's request PT/OT to assess and treat DVT/GI Prophylaxis SW/CM for d/c planning Code status: full Additional orders as above
[2019-07-30] MEDS: Finasteride 5 MG Tab PO SCH ×2 (09:46→20:26)
[2019-07-30] MEDS: Tamsulosin 0.4 MG Cap.ER PO SCH (09:48)
[2019-07-30] MEDS: Terazosin 1 MG Cap PO SCH ×2 (09:48→20:23)
[2019-07-30] MEDS: Polyethylene Glycol 3350 Powder 17 GM Packet PO SCH (09:48)
[2019-07-30] MEDS: amLODIPine 5 MG Tab PO SCH (09:48)
[2019-07-30] MEDS: Multivitamins with Minerals/Folic Acid/Lutein/Zeaxanth Tab PO SCH ×2 (09:48→20:23)
[2019-07-30] MEDS: cefTRIAXone 1 GM in Sodium Chloride 0.9% 100 ML IV SCH (10:55)
--- NOTE | 2019-07-30 13:46 | US ---
Renal ultrasound: Multiple real-time images of the kidneys were obtained. 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 No hydronephrosis or discrete mass is seen. Grayson catheter is noted within the bladder. Measurements: Right kidney length: 10.2 cm Left kidney likely 10.8 cm Impression: 1. Horseshoe configuration. No hydronephrosis is seen. Diagnostic code #2 I agree with preliminary report from [facility] (although no renal mass is seen), finalized on 07/29/19, 11:40 AM Central Time, code #2
--- NOTE | 2019-07-30 13:46 | CT ---
CT abdomen and pelvis Technique: Multiple axial sections were obtained from above the dome of the diaphragm inferiorly through the pubic symphysis. Intravenous contrast was not utilized. No oral contrast was given. Intravenous contrast then given and imaging obtained from above the dome of the diaphragm inferiorly through the pubic symphysis. Delayed images were also obtained from above the kidneys inferiorly through the pubic symphysis. Comparison: Previous renal ultrasound exam performed earlier on the same day (9:21 AM) Findings: Slight parenchymal density is seen primarily within the right lung base with mild interstitial change within the left lung base. Findings most likely represent atelectasis, scarring and mild fibrosis. Small cysts are seen within the liver. Spleen appears within normal limits. Adrenal glands show no discrete nodule. Pancreas shows no discrete abnormality. Minimal inflammatory change noted around the pancreas. Spleen appears within normal limits. Aorta shows atherosclerotic calcification which continues into the iliac vessels. No retroperitoneal adenopathy or mesenteric abnormalities are seen. 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 Mucosa is slightly prominent within the left renal pelvis. No ureteral dilatation is seen. Grayson catheter is noted within the bladder. No discrete pelvic mass or adenopathy is seen. Small fat-containing left inguinal hernia is noted. Bone window settings were reviewed which show scattered degenerative change throughout the spine. Appendix is seen and is normal in size. Impression: 1. Slightly prominent left renal pelvis within a horseshoe kidney. Uncertain if findings represent change from recent stone passage or change from pyelonephritis. 2. Questionable inflammatory change around the pancreas. Please correlate if patient has any symptoms of pancreatitis. This inflammatory change could also be chronic. 3. Incidental cyst within the liver. Other findings as noted above also felt to be incidental. 4. Other incidental findings as noted above. I agree with preliminary report from [facility], finalized on 07/29/19, 1:31 PM Central Time
[2019-07-30] MEDS: Acetaminophen 325 MG Tab PO PRN (14:45)
[2019-07-30] MEDS ORDERED: Furosemide 20 MG/2 ML VIAL IVPUSH ONE (14:54)
[2019-07-30] MEDS: Latanoprost 0.005% Ophth Soln 2.5 ML Bottle EYEBOTH SCH (20:34)
[2019-07-31] MEDS ORDERED: Bisacodyl 10 MG Supp RECTAL ONE (07:00)
--- NOTE | 2019-07-31 07:50 | PCM.PN ---
- General Info Date of Service: 07/31/19 Admission Dx/Problem (Free Text): Admission Diagnosis/Problem Admission Diagnosis/Problem Acute kidney injury Subjective Update: Follow up Functional Status: Reports: Pain Controlled, Tolerating Diet, Urinating. Denies : New Symptoms - Review of Systems General: Denies: Fever, Weakness, Fatigue, Malaise, Chills HEENT: Reports: No Symptoms. Denies: Visual Changes Cardiovascular: Denies: Chest Pain Gastrointestinal: Denies: Abdominal Pain, Nausea, Vomiting Genitourinary: Reports: No Symptoms Musculoskeletal: Reports: No Symptoms Skin: Denies: No Symptoms Neurological: Denies: No Symptoms, Difficulty Walking, Weakness, Gait Disturbance Psychiatric: Denies: Confusion, Anxiety, Hallucinations, Homicidal Ideation Systems Review Comment:: No trouble overnight or this morning. - Patient Data Vitals - Most Recent: Last Vital Signs Temp 36.9 C 07/31/19 05:53 Pulse 83 07/31/19 05:53 Resp 16 07/31/19 05:53 BP 126/54 L 07/31/19 05:53 Pulse Ox 92 L 07/31/19 05:53 Weight - Most Recent: 79.968 kg I&O - Last 24 Hours: Intake & Output 07/30/19 07/31/19 07/31/19 22:59 06:59 14:59 Intake Total 1925 450 Output Total 1000 850 Balance 925 -400 Lab Results Last 24 Hours: Laboratory Results - last 24 hr 07/30/19 07/31/19 07/31/19 Range/Units 05:39 04:28 04:28 WBC 14.05 H (4.23-9.07) K/mm3 RBC 3.16 L (4.63-6.08) M/mm3 Hgb 8.9 L (13.7-17.5) gm/dl Hct 27.8 L (40.1-51.0) % MCV 88.0 (79.0-92.2) fl MCH 28.2 (25.7-32.2) pg MCHC 32.0 L (32.2-35.5) g/dl RDW Std Deviation 44.6 H (35.1-43.9) fL Plt Count 183 (163-337) K/mm3 MPV 9.6 (9.4-12.3) fl Neut % (Auto) 83.2 H (34.0-67.9) % Lymph % (Auto) 9.8 L (21.8-53.1) % [place] % (Auto) 6.3 (5.3-12.2) % Eos % (Auto) 0.4 L (0.8-7.0) Baso % (Auto) 0.1 (0.1-1.2) % Neut # (Auto) 11.69 H (1.78-5.38) K/mm3 Lymph # (Auto) 1.38 (1.32-3.57) K/mm3 [place] # (Auto) 0.89 H (0.30-0.82) K/mm3 Eos # (Auto) 0.05 (0.04-0.54) K/mm3 Baso # (Auto) 0.01 (0.01-0.08) K/mm3 Manual Slide Review Abnormal smear Abnormal smear Sodium 133 L (136-145) mEq/L Potassium 3.7 (3.5-5.1) mEq/L Chloride 102 (98-107) mEq/L Carbon Dioxide 24 (21-32) mEq/L Anion Gap 10.7 (5-15) BUN 25 H (7-18) mg/dL Creatinine 1.0 (0.7-1.3) mg/dL Est Cr Clr Drug Dosing 49.40 mL/min Estimated GFR (MDRD) > 60 (>60) mL/min BUN/Creatinine Ratio 25.0 H (14-18) Glucose 112 (83-115) mg/dL Calcium 7.8 L (8.5-10.1) mg/dL Magnesium 2.0 (1.8-2.4) mg/dl C-Reactive Protein 13.2 H* (<1.0) mg/dL [place] Results Last 24 Hours: Microbiology 07/28/19 23:40 Urine Culture - Preliminary Urine, Catheterized Gram Positive [place]ci Med Orders - Current: Current Medications Acetaminophen (Tylenol) 650 mg PO Q4H PRN PRN Reason: Pain (Mild 1-3)/fever Last Admin: 07/30/19 14:45 Dose: 650 mg Hydrocodone Bitart/Acetaminophen ([place] 325-5 Mg) 1 tab PO Q4H PRN PRN Reason: Pain (moderate 4-6) Albuterol/Ipratropium (Duoneb 3.0-0.5 Mg/3 Ml) 3 ml NEB Q4H PRN PRN Reason: Shortness Of Breath/wheezing Last Admin: 07/29/19 12:25 Dose: 3 ml Amlodipine Besylate (Norvasc) 5 mg PO DAILY [facility] Last Admin: 07/30/19 09:48 Dose: 5 mg Bisacodyl (Dulcolax) 5 mg PO DAILY PRN PRN Reason: Constipation Docusate Sodium (Colace) 100 mg PO BID PRN PRN Reason: Constipation Finasteride (Proscar) 5 mg PO BID [facility] Last Admin: 07/30/19 20:26 Dose: 5 mg Hydromorphone HCl (Dilaudid) 0.25 mg IVPUSH Q2H PRN PRN Reason: Pain (severe 7-10) Promethazine HCl 6.25 mg/ (Sodium Chloride) 50.25 mls @ 100 mls/hr IV Q6H PRN PRN Reason: Nausea/Vomiting Ceftriaxone Sodium 1 gm/ (Sodium Chloride) 100 mls @ 200 mls/hr IV Q24H [facility] Last Admin: 07/30/19 10:55 Dose: 200 mls/hr Latanoprost (Xalatan 0.005% Ophth Soln) 0 ml EYEBOTH BEDTIME [facility] Last Admin: 07/30/19 20:34 Dose: 1 drop Lorazepam (Ativan) 0.5 mg IV Q6H PRN PRN Reason: Anxiety Ondansetron HCl (Zofran) 4 mg IV Q6H PRN PRN Reason: Nausea/Vomiting Polyethylene Glycol (Miralax) 17 gm PO DAILY [facility] Last Admin: 07/30/19 09:48 Dose: 17 gm Polyethylene Glycol (Miralax) 17 gm PO DAILY PRN PRN Reason: Constipation Senna/Docusate Sodium (Senna Plus) 1 tab PO BID PRN PRN Reason: Constipation Last Admin: 07/30/19 15:16 Dose: 1 tab Tamsulosin HCl (Flomax) 0.4 mg PO DAILY [facility] Last Admin: 07/30/19 09:48 Dose: 0.4 mg Temazepam (Restoril) 7.5 mg PO BEDTIME PRN PRN Reason: Sleep Terazosin HCl (Hytrin) 1 mg PO BID [facility] Last Admin: 07/30/19 20:23 Dose: 1 mg Vit A/Vit C/Vit E/Selen/Cu/Zn/Lutei (Icaps Mv) 1 tab PO BID [facility] Last Admin: 07/30/19 20:23 Dose: 1 tab Discontinued Medications Bisacodyl (Dulcolax) 10 mg RECTAL ONETIME ONE Stop: 07/31/19 07:01 Last Admin: 07/31/19 06:08 Dose: 10 mg Furosemide (Lasix) 10 mg IVPUSH NOW ONE Stop: 07/30/19 14:55 Last Admin: 07/30/19 15:02 Dose: 10 mg Lactated Ringer's (Ringers, Lactated) 1,000 mls @ 999 mls/hr IV .BOLUS ONE Stop: 07/29/19 00:58 Last Admin: 07/29/19 00:04 Dose: 999 mls/hr Lactated Ringer's (Ringers, Lactated) 1,000 mls @ 250 mls/hr IV ASDIRECTED [facility] Lactated Ringer's (Ringers, Lactated) 1,000 mls @ 250 mls/hr IV ASDIRECTED [facility] Last Admin: 07/29/19 08:49 Dose: 250 mls/hr Sodium Chloride (Normal Saline) 250 mls @ 499.445 mls/hr IV BOLUS ONE Stop: 07/29/19 11:30 Last Admin: 07/29/19 11:10 Dose: 999 mls/hr Sodium Chloride (Normal Saline) 250 mls @ 499.445 mls/hr IV BOLUS ONE Stop: 07/29/19 12:00 Last Admin: 07/29/19 12:24 Dose: Not Given Sodium Chloride (Normal Saline) 1,000 mls @ 75 mls/hr IV ASDIRECTED [facility] Stop: 07/30/19 09:49 Last Admin: 07/29/19 23:19 Dose: 75 mls/hr Iopamidol (Isovue-370 (76%)) 100 ml IVPUSH ONETIME ONE Stop: 07/29/19 11:29 Last Admin: 07/29/19 11:46 Dose: 100 ml Lorazepam (Ativan) 0.6 mg IV Q6H PRN PRN Reason: Anxiety Magnesium Hydroxide (Milk Of Magnesia) 30 ml PO ONETIME ONE Stop: 07/30/19 06:17 Last Admin: 07/30/19 09:47 Dose: 30 ml Non-Formulary Medication (Polyethylene Glycol [Polyox Wsr-301]) 17 gm PO DAILY [facility] - Exam General: Alert, Cooperative, No Acute Distress HEENT: Pupils Equal, Pupils Reactive, EOMI, Mucous Membr. Moist/[place], Other ( hard of hearing) Lungs: Clear to Auscultation, Normal Respiratory Effort Cardiovascular: Regular Rate, Regular Rhythm GI/Abdominal Exam: Normal Bowel Sounds, Soft, Non-Tender, No Organomegaly, No Distention, No Abnormal Bruit (Male) Exam: Deferred Back Exam: Normal Inspection, Decreased Range of Motion Extremities: Normal Inspection, Normal Range of Motion, Non-Tender, No Pedal Edema, Normal Capillary Refill Skin: Warm, Dry, Intact Neurological: No New Focal Deficit. No: Normal Gait Psy/Mental Status: Alert, Normal Affect, Normal Mood - Problem List Review Problem List Initiated/Reviewed/Updated: Yes - My Orders Last 24 Hours: My Active Orders 07/30/19 10:00 cefTRIAXone [Rocephin] 1 gm Sodium Chloride 0.9% [Normal Saline] 100 ml IV Q24H 07/30/19 22:18 Consult to Speech Language Pathology [MINIATURE SET DESIGNER Evaluation and Treatment] [CONS] Routine 08/01/19 05:11 BASIC METABOLIC PANEL,BMP [CHEM] AM CBC WITH AUTO DIFF [HEME] AM CRP [C-REACTIVE PROTEIN] [CHEM] AM MAGNESIUM [CHEM] AM 08/02/19 05:11 BASIC METABOLIC PANEL,BMP [CHEM] AM CBC WITH AUTO DIFF [HEME] AM CRP [C-REACTIVE PROTEIN] [CHEM] AM MAGNESIUM [CHEM] AM 08/03/19 05:11 BASIC METABOLIC PANEL,BMP [CHEM] AM CBC WITH AUTO DIFF [HEME] AM MAGNESIUM [CHEM] AM - Plan Plan:: Assessment: Acute: Acute Urinary Retention, Improved - Has hx/o BPH - Seen urology but no additional treatment provided - He is already on Finasteride and Flomax-will continue - Has martinez catheter in - Need to be able to void prior to discharge Leukocytosis, Improved - WBC of 16.01 w/ 0% Bands; 15.39K-->14.05K - Afebrile - Likely 2/2 Stress Hyponatremia, Improving - NA of 128-->132-->133-->133 - AKIS vs Inadequate Intake - He is not on thiazide or SSRI/SNRI - Monitor UTI/Cystitis - UA not impressive - Has had hx/o catheter use - Urine cx shows GPC - Continue IV Rocephin 1 gram daily S/p Hyperglycemia, Improved - BS of 165-->137-->113 - A1C is 6.10 Query Memory Impairment - MINIATURE SET DESIGNER for cognitive eval Resolved: S/p Acute Kidney Injury - Cr of 2.2-->1.5-->0.9 and BUN of 34-->44-->20 - GFR of 28l baseline is > 60 in 2017 - Has underlying BPH - Seen urology recently but no treatment received - Continue Finasteride and Flomax - Currently has indwelling martinez catheter; consider removing it in AM - R/o Obstructive Uropathy with Renal U/S - UA mildly positive for infection S/p Increased AG Metabolic Acidosis - 2/2 ANGELI - CO2 of 20 and AG of 15.7--> 16.3 - IV NS for hydration Chronic: Impaired Vision/Hearing, HTN, HLD, BPH, Vertebrobasilar Insufficiency and Gait Instability Plan: He remains clinically stable Routine AM labs Fall Precautions Regular diet PT/OT to assess and treat DVT/GI Prophylaxis SW/CM for d/c planning Code status: full Additional orders as above Possible d/c in AM
[2019-07-31] MEDS: Tamsulosin 0.4 MG Cap.ER PO SCH (08:20)
[2019-07-31] MEDS: Polyethylene Glycol 3350 Powder 17 GM Packet PO SCH (08:20)
[2019-07-31] MEDS: Multivitamins with Minerals/Folic Acid/Lutein/Zeaxanth Tab PO SCH ×2 (08:21→20:16)
[2019-07-31] MEDS: Finasteride 5 MG Tab PO SCH ×2 (08:21→20:17)
[2019-07-31] MEDS: Terazosin 1 MG Cap PO SCH ×2 (08:26→20:16)
[2019-07-31] MEDS: amLODIPine 5 MG Tab PO SCH (08:26)
[2019-07-31] MEDS: cefTRIAXone 1 GM in Sodium Chloride 0.9% 100 ML IV SCH ×2 (08:33→09:43)
[2019-07-31] MEDS: Acetaminophen 325 MG Tab PO PRN (18:56)
[2019-07-31] MEDS: Latanoprost 0.005% Ophth Soln 2.5 ML Bottle EYEBOTH SCH (20:15)
[2019-08-01] MEDS: amLODIPine 5 MG Tab PO SCH (08:50)
[2019-08-01] MEDS: Polyethylene Glycol 3350 Powder 17 GM Packet PO SCH (08:50)
[2019-08-01] MEDS: Tamsulosin 0.4 MG Cap.ER PO SCH (08:50)
[2019-08-01] MEDS: Terazosin 1 MG Cap PO SCH (08:50)
[2019-08-01] MEDS: Finasteride 5 MG Tab PO SCH (08:50)
[2019-08-01] MEDS: Multivitamins with Minerals/Folic Acid/Lutein/Zeaxanth Tab PO SCH (08:50)
[2019-08-01] MEDS: cefTRIAXone 1 GM in Sodium Chloride 0.9% 100 ML IV SCH ×2 (08:51→09:49)
--- NOTE | 2019-08-01 11:54 | PCM.DCSUM1 ---
Discharge Summary - Hospital Course Free Text/Narrative:: This is an 88 yo elderly white male with past medical hx/o Impaired Vision/ Hearing, HTN, HLD, BPH, Vertebrobasilar Insufficiency and Gait Instability who presented to ED last night for evaluation of urinary retention associated with increased unsteadiness, chills and decreased energy. He was recently seen in ED on 07/08/2019 due to significant urinary retention and was discharged with a martinez catheter. He was evaluated by urology a couple of days ago for catheter removal. At that time, he was able to void before he left the clinic. Unfortunately, he had trouble voiding since then. In ED, he had retained bladder urine of > 700 ml therefore a catheter was put in to relieve urinary retention. His initial work up in ED showed a CBC remarkable for WBC of 16.01, RBC of 3.60 , Hgb of 10.3, Hct of 30.9, MPV of 8.8, Neutrophils of 88%, and Lymphocytes of 7 %. His Chemistry was significant for Na of 128, Cl of 97, CO2 of 20, AG of 15.7 , BUN of 34, Cr of 2.2, BS of 65, AST of 14, ALT of 13 and Albumin of 2.8. Patient was admitted overnight to [facility] due to acute kidney injury and acute urinary retention. Diagnosis: Stroke: No Modified Kristina Scale: No Symptoms at All Modified [place] Scale Score: 0 - Discharge Data Discharge Date: 08/01/19 Discharge Disposition: Home, Self-Care 01 Condition: Good - Referral to Home Health Primary Care Physician: Kelly Graham MD - Patient Summary/Data Operative Procedure(s) Performed: None Complications: None Consults: Consultations 07/29/19 07:33 Consult to Case Management/Hot Strip Mill Inspector [CONS] Routine Consult to Spiritual Care [CONS] Routine OT Evaluation and Treatment [CONS] Routine PT Evaluation and Treatment [CONS] Routine 07/30/19 22:18 Consult to Speech Language Pathology [COMMUTATOR V RING ASSEMBLER Evaluation and Treatment] [CONS] Routine Labs Pending at D/C: None Recommended Follow-up Testing/Procedures: None Planned Operative Procedure(s) after DC: None Hospital Course: Patient was primarily admitted for acute urinary retention from obstructive uropathy. He was recently evaluated by urology this past Wednesday but since then he was not able to void. He was found with over 700 ml of retained urine in his bladder upon presentation to ED. As a result, martinez catheter was put in to relief his abdominal discomfort and we continued his finasteride and flomax for his enlarged prostate. During admission, he was also treated for acute kidney injury as a consequence of urinary retention. However with hydration and martinez catheter, his renal panel improved His hospital course was mildly complicated by electrolytes abnormality but with daily supplementation, we were able to improve it prior to discharge. Once medically stable, he was sent back to assisted living facility. He as advised to keep his follow up appointment as scheduled with urology in a few a days. He eas further advised to see his PCP 1 week after discharge. - Patient Instructions Diet: Usual Diet as Tolerated Activity: As Tolerated Driving: Do Not Drive Showering/Bathing: May Shower Notify Provider of: Fever, Increased Pain, Swelling and Redness, Drainage, Nausea and/or Vomiting Other/Special Instructions: - Please resume routine home medications and activity as tolerated. - Call or follow up with your doctor for any concerns or issues after discharge. - Follow up with your doctor 1 week. - Recommend follow up with urology after discharge. - Come back or seek immediate care should your symptoms persist or get worse - Discharge Plan *PRESCRIPTION DRUG MONITORING PROGRAM REVIEWED*: Not Applicable *COPY OF PRESCRIPTION DRUG MONITORING REPORT IN PATIENT MIRTA: Not Applicable Home Medications: Home Meds Finasteride 5 mg PO BID 11/07/17 [History] Lisinopril [Prinivil] 10 mg PO BID 11/07/17 [History] Terazosin [Hytrin] 1 mg PO BID 11/07/17 [History] amLODIPine Besylate [Amlodipine Besylate] 5 mg PO DAILY 07/25/18 [History] Polyethylene Glycol [Polyox Wsr-301] 17 gm PO DAILY 07/28/19 [History] Tamsulosin [Tamsulosin 24 Hr] 0.4 mg PO DAILY 07/28/19 [History] Bimatoprost [LUMIGAN 0.01% Ophth Soln] 1 drop EYEBOTH DAILY 07/29/19 [History] Vit A/Vit C/Vit E/Zinc/Copper [Preservision] 1 cap PO BID 07/29/19 [History] Oxygen Therapy Mode: Room Air Patient Handouts: Acute Kidney Injury, Adult, Indwelling Urinary Catheter Care , Adult, Hyponatremia, [id number], Leukocytosis, Hyperglycemia, [id number], Indwelling Urinary Catheter Care, Adult, [id number], Metabolic Acidosis, Acute Urinary Retention, Male, [id number] Referrals: Kelly Graham MD [Primary Care Provider] - 08/08/19 9:00 am (Please follow up with Dr. Graham on WednesdayAugust 08 at 9:00 am) Reji Del Toro MD [Ordering Only Provider] - 08/04/19 11:00 am ( appointment at [facility] [address] at 11:00 [place] time.) - Discharge Summary/Plan Comment DC Time >30 min.: No Discharge Summary/Plan Comment: Discharge to Home - General Info Date of Service: 08/01/19 Admission Dx/Problem (Free Text: Admission Diagnosis/Problem Admission Diagnosis/Problem Acute kidney injury Subjective Update: Follow up Functional Status: Reports: Pain Controlled, Tolerating Diet, Ambulating, Urinating, New Symptoms - Review of Systems General: Denies: Fever, Weakness, Fatigue, Malaise HEENT: Reports: No Symptoms Pulmonary: Denies: Shortness of Breath, Pleuritic Chest Pain, Cough, Sputum, Hemoptysis Cardiovascular: Denies: Chest Pain Gastrointestinal: Denies: Abdominal Pain, Nausea, Vomiting Genitourinary: Reports: No Symptoms Musculoskeletal: Reports: No Symptoms Skin: Reports: No Symptoms Neurological: Denies: Weakness, Gait Disturbance Psychiatric: Denies: Confusion, Depression, Mood Lability, Anxiety, Agitation, Cravings, Hallucinations, Suicidal Ideation - Patient Data Vitals - Most Recent: Last Vital Signs Temp 36.7 C 08/01/19 11:16 Pulse 79 08/01/19 11:16 Resp 15 08/01/19 11:16 BP 133/70 08/01/19 11:16 Pulse Ox 93 L 08/01/19 11:16 Weight - Most Recent: 80.921 kg I&O - Last 24 hours: Intake & Output 07/31/19 08/01/19 08/01/19 22:59 06:59 14:59 Intake Total 1100 200 120 Output Total 280 475 Balance 820 -275 120 Lab Results - Last 24 hrs: Laboratory Results - last 24 hr 08/01/19 08/01/19 Range/Units 05:10 05:20 WBC 10.61 H (4.23-9.07) K/mm3 RBC 3.13 L (4.63-6.08) M/mm3 Hgb 8.7 L (13.7-17.5) gm/dl Hct 27.5 L (40.1-51.0) % MCV 87.9 (79.0-92.2) fl MCH 27.8 (25.7-32.2) pg MCHC 31.6 L (32.2-35.5) g/dl RDW Std Deviation 44.2 H (35.1-43.9) fL Plt Count 189 (163-337) K/mm3 MPV 9.7 (9.4-12.3) fl Neut % (Auto) 73.5 H (34.0-67.9) % Lymph % (Auto) 15.4 L (21.8-53.1) % [place] % (Auto) 7.5 (5.3-12.2) % Eos % (Auto) 3.2 (0.8-7.0) Baso % (Auto) 0.2 (0.1-1.2) % Neut # (Auto) 7.80 H (1.78-5.38) K/mm3 Lymph # (Auto) 1.63 (1.32-3.57) K/mm3 [place] # (Auto) 0.80 (0.30-0.82) K/mm3 Eos # (Auto) 0.34 (0.04-0.54) K/mm3 Baso # (Auto) 0.02 (0.01-0.08) K/mm3 Sodium 135 L (136-145) mEq/L Potassium 3.9 (3.5-5.1) mEq/L Chloride 103 (98-107) mEq/L Carbon Dioxide 24 (21-32) mEq/L Anion Gap 11.9 (5-15) BUN 26 H (7-18) mg/dL Creatinine 0.9 (0.7-1.3) mg/dL Est Cr Clr Drug Dosing 54.89 mL/min Estimated GFR (MDRD) > 60 (>60) mL/min BUN/Creatinine Ratio 28.9 H (14-18) Glucose 93 (83-115) mg/dL Calcium 8.1 L (8.5-10.1) mg/dL Magnesium 2.2 (1.8-2.4) mg/dl C-Reactive Protein 9.7 H* (<1.0) mg/dL FENG Results - Last 24 hrs: Microbiology 07/28/19 23:40 Urine Culture - Final Urine, Catheterized Staphylococcus Epidermidis Med Orders - Current: Current Medications Acetaminophen (Tylenol) 650 mg PO Q4H PRN PRN Reason: Pain (Mild 1-3)/fever Last Admin: 07/31/19 18:56 Dose: 650 mg Hydrocodone Bitart/Acetaminophen ([place] 325-5 Mg) 1 tab PO Q4H PRN PRN Reason: Pain (moderate 4-6) Albuterol/Ipratropium (Duoneb 3.0-0.5 Mg/3 Ml) 3 ml NEB Q4H PRN PRN Reason: Shortness Of Breath/wheezing Last Admin: 07/29/19 12:25 Dose: 3 ml Amlodipine Besylate (Norvasc) 5 mg PO DAILY [facility] Last Admin: 08/01/19 08:50 Dose: 5 mg Bisacodyl (Dulcolax) 5 mg PO DAILY PRN PRN Reason: Constipation Docusate Sodium (Colace) 100 mg PO BID PRN PRN Reason: Constipation Finasteride (Proscar) 5 mg PO BID [facility] Last Admin: 08/01/19 08:50 Dose: 5 mg Hydromorphone HCl (Dilaudid) 0.25 mg IVPUSH Q2H PRN PRN Reason: Pain (severe 7-10) Promethazine HCl 6.25 mg/ (Sodium Chloride) 50.25 mls @ 100 mls/hr IV Q6H PRN PRN Reason: Nausea/Vomiting Ceftriaxone Sodium 1 gm/ (Sodium Chloride) 100 mls @ 200 mls/hr IV Q24H [facility] Last Admin: 08/01/19 09:49 Dose: Not Given Latanoprost (Xalatan 0.005% Ophth Soln) 0 ml EYEBOTH BEDTIME [facility] Last Admin: 07/31/19 20:15 Dose: 1 drop Lorazepam (Ativan) 0.5 mg IV Q6H PRN PRN Reason: Anxiety Ondansetron HCl (Zofran) 4 mg IV Q6H PRN PRN Reason: Nausea/Vomiting Polyethylene Glycol (Miralax) 17 gm PO DAILY [facility] Last Admin: 08/01/19 08:50 Dose: 17 gm Polyethylene Glycol (Miralax) 17 gm PO DAILY PRN PRN Reason: Constipation Senna/Docusate Sodium (Senna Plus) 1 tab PO BID PRN PRN Reason: Constipation Last Admin: 07/30/19 15:16 Dose: 1 tab Tamsulosin HCl (Flomax) 0.4 mg PO DAILY [facility] Last Admin: 08/01/19 08:50 Dose: 0.4 mg Temazepam (Restoril) 7.5 mg PO BEDTIME PRN PRN Reason: Sleep Terazosin HCl (Hytrin) 1 mg PO BID [facility] Last Admin: 08/01/19 08:50 Dose: 1 mg Vit A/Vit C/Vit E/Selen/Cu/Zn/Lutei (Icaps Mv) 1 tab PO BID [facility] Last Admin: 08/01/19 08:50 Dose: 1 tab Discontinued Medications Bisacodyl (Dulcolax) 10 mg RECTAL ONETIME ONE Stop: 07/31/19 07:01 Last Admin: 07/31/19 06:08 Dose: 10 mg Furosemide (Lasix) 10 mg IVPUSH NOW ONE Stop: 07/30/19 14:55 Last Admin: 07/30/19 15:02 Dose: 10 mg Lactated Ringer's (Ringers, Lactated) 1,000 mls @ 999 mls/hr IV .BOLUS ONE Stop: 07/29/19 00:58 Last Admin: 07/29/19 00:04 Dose: 999 mls/hr Lactated Ringer's (Ringers, Lactated) 1,000 mls @ 250 mls/hr IV ASDIRECTED [facility] Lactated Ringer's (Ringers, Lactated) 1,000 mls @ 250 mls/hr IV ASDIRECTED [facility] Last Admin: 07/29/19 08:49 Dose: 250 mls/hr Sodium Chloride (Normal Saline) 250 mls @ 499.445 mls/hr IV BOLUS ONE Stop: 07/29/19 11:30 Last Admin: 07/29/19 11:10 Dose: 999 mls/hr Sodium Chloride (Normal Saline) 250 mls @ 499.445 mls/hr IV BOLUS ONE Stop: 07/29/19 12:00 Last Admin: 07/29/19 12:24 Dose: Not Given Sodium Chloride (Normal Saline) 1,000 mls @ 75 mls/hr IV ASDIRECTED [place] Stop: 07/30/19 09:49 Last Admin: 07/29/19 23:19 Dose: 75 mls/hr Iopamidol (Isovue-370 (76%)) 100 ml IVPUSH ONETIME ONE Stop: 07/29/19 11:29 Last Admin: 07/29/19 11:46 Dose: 100 ml Lorazepam (Ativan) 0.6 mg IV Q6H PRN PRN Reason: Anxiety Magnesium Hydroxide (Milk Of Magnesia) 30 ml PO ONETIME ONE Stop: 07/30/19 06:17 Last Admin: 07/30/19 09:47 Dose: 30 ml Non-Formulary Medication (Polyethylene Glycol [Polyox Wsr-301]) 17 gm PO DAILY [facility] - Exam General: Reports: Alert, Oriented, Cooperative, No Acute Distress HEENT: Reports: Pupils Equal, Pupils Reactive, EOMI, Mucous Membr. Moist/[place] Neck: Reports: Supple Lungs: Reports: Clear to Auscultation, Normal Respiratory Effort Cardiovascular: Reports: Regular Rate, Regular Rhythm, Rubs GI/Abdominal Exam: Normal Bowel Sounds, Soft, Non-Tender, No Organomegaly, No Distention, No Abnormal Bruit, No Mass (Male) Exam: Deferred Rectal (Males) Exam: Deferred Back Exam: Reports: Normal Inspection, Full Range of Motion Extremities: Normal Inspection, Normal Range of Motion, Non-Tender, No Pedal Edema, Normal Capillary Refill Skin: Reports: Warm, Dry, Intact Wound/Incisions: Reports: Healing Well Neurological: Reports: No New Focal Deficit Psy/Mental Status: Reports: Alert, Normal Affect, Normal Mood
== END 2019-08-01 14:50 | disposition home or self-care (01) | DRG 699 ==
LOC: JD.ED 22:55 → JD.MS 07-29 01:38 → OBSVTOIN 07-31 11:31
PROVIDERS: ADMIT Internal Medicine; ATTEND Internal Medicine
PROC: 0T9B70Z Drainage of Bladder with Drainage Device, Via Natural or Artificial Opening (ICD-10-PCS; principal; 2019-07-28)
DX: N13.9 Obstructive and reflux uropathy, unspecified (principal); N17.9 Acute kidney failure, unspecified; E86.0 Dehydration; G45.0 Vertebro-basilar artery syndrome; E87.2 Acidosis; R26.81 Unsteadiness on feet; E87.1 Hypo-osmolality and hyponatremia; H54.7 Unspecified visual loss; I10 Essential (primary) hypertension; E78.5 Hyperlipidemia, unspecified; R26.9 Unspecified abnormalities of gait and mobility; N40.1 Benign prostatic hyperplasia with lower urinary tract symptoms; R33.8 Other retention of urine; H35.30 Unspecified macular degeneration; D72.829 Elevated white blood cell count, unspecified; E78.00 Pure hypercholesterolemia, unspecified; R41.3 Other amnesia; N30.90 Cystitis, unspecified without hematuria; B96.89 Other specified bacterial agents as the cause of diseases classified elsewhere; R73.9 Hyperglycemia, unspecified; N28.89 Other specified disorders of kidney and ureter; Z88.1 Allergy status to other antibiotic agents; Z79.899 Other long term (current) drug therapy; Z86.73 Personal history of transient ischemic attack (TIA), and cerebral infarction without residual deficits; Z98.49 Cataract extraction status, unspecified eye; Z87.891 Personal history of nicotine dependence
CPT/HCPCS: 36415 ×4; 51702; 74178; 76770; 80048 ×3; 80053; 81001; 83036; 83690; 83735 ×3; 85007; 85025 ×2; 85027; 86140; 87086; 87088; 87186; 87641; 94640; 94760; 96125; 96361 ×2; 96365; 96375; 96376; 97110; 97116 ×2; 97162; 97165; 97535; 99285; A9270 ×30; G0378 ×3; J0696 ×2; J7030 ×2; J7040 ×2; J7120 ×3; Q9967; 96360; 97161-GP; J7620-GY

== ENCOUNTER 2019-12-22 06:41 | Emergency (ER) | payer MEDICARE, OTHER ==
--- NOTE | 2019-12-22 07:51 | EDM.PDOC ---
ED HPI GENERAL MEDICAL PROBLEM - General Chief Complaint: Genitourinary Problem Stated Complaint: UNABLE TO URINATE Time Seen by Provider: 12/22/19 07:04 Source of Information: Reports: Patient, Family, RN Notes Reviewed - History of Present Illness INITIAL COMMENTS - FREE TEXT/NARRATIVE: 89-year-old male has been brought in by family with symptoms of urinary retention. Have history of that. He has been using indwelling Grayson catheter likely for the past 6-8 months. Sided to give him a trial without so his catheter was removed yesterday clinic. He states he has been dribbling a little bit removal rarely has been unable to void any normal way. He has developed lower pelvic and bladder discomfort. Patient does have Alzheimer's so not able to give a real accurate history. There is no history of fever chills nausea or vomiting per patient or family. Bladder Pain Score (Numeric/FACES): 8 - Related Data Allergies Allergy/AdvReac Type Severity Reaction Status Date / Time azithromycin [From Zithromax] AdvReac Ringing in Verified 12/22/19 06:49 the Ears Home Meds: Home Meds Finasteride 5 mg PO BID 11/07/17 [History] Lisinopril [Prinivil] 10 mg PO BID 11/07/17 [History] Terazosin [Hytrin] 1 mg PO BID 11/07/17 [History] amLODIPine Besylate [Amlodipine Besylate] 5 mg PO DAILY 07/25/18 [History] Polyethylene Glycol [Polyox Wsr-301] 17 gm PO DAILY 07/28/19 [History] Tamsulosin [Tamsulosin 24 Hr] 0.4 mg PO DAILY 07/28/19 [History] Bimatoprost [LUMIGAN 0.01% Ophth Soln] 1 drop EYEBOTH DAILY 07/29/19 [History] Vit A/Vit C/Vit E/Zinc/Copper [Preservision] 1 cap PO BID 07/29/19 [History] Past Medical History HEENT History: Reports: Glaucoma, Hard of Hearing, Impaired Vision, Macular Degeneration, Other (See Below) Other HEENT History: wears hearing aides bilaterally however still hard of hearing with those, has glasses and a full set of dentures. Cardiovascular History: Reports: High Cholesterol, Hypertension, Other (See Below) Respiratory History: Reports: None Gastrointestinal History: Reports: None Genitourinary History: Reports: BPH Musculoskeletal History: Reports: None Neurological History: Reports: TIA Psychiatric History: Reports: None Endocrine/Metabolic History: Reports: None Hematologic History: Reports: None Immunologic History: Reports: None Oncologic (Cancer) History: Reports: None Dermatologic History: Reports: None - Infectious Disease History Infectious Disease History: Reports: Influenza, Measles - Past Surgical History Head Surgeries/Procedures: Reports: None HEENT Surgical History: Reports: Cataract Surgery Respiratory Surgical History: Reports: None Neurological Surgical History: Reports: None Social & Family History - Family History Family Medical History: Noncontributory - Tobacco Use Smoking Status *Q: Unknown Ever Smoked - Caffeine Use Caffeine Use: Reports: Coffee Other Caffeine Use: 1-2 cups every day. - Living Situation & Occupation Living situation: Reports: , with Spouse Occupation: Retired ED ROS GENERAL - Review of Systems Review Of Systems: See Below Constitutional: Denies: Fever, Chills, Diaphoresis HEENT: Reports: No Symptoms Respiratory: Denies: Shortness of Breath Cardiovascular: Denies: Chest Pain GI/Abdominal: Reports: Abdominal Pain (Lower pelvic and bladder discomfort). Denies: Nausea, Vomiting : Reports: Urinary Retention Musculoskeletal: Reports: No Symptoms Skin: Reports: No Symptoms Neurological: Reports: No Symptoms ED EXAM, GENERAL - Physical Exam Exam: See Below General Appearance: Alert, No Apparent Distress Throat/Mouth: Other Head: Atraumatic (All mucosa moist) Neck: Supple Respiratory/Chest: Lungs Clear, Normal Breath Sounds Cardiovascular: Regular Rate, Rhythm GI/Abdominal: Other (Mild tenderness over the bladder, abdomen otherwise soft and nontender) Neurological: Alert, No Motor/Sensory Deficits Skin Exam: Warm, Dry, Normal Color Course - Vital Signs Last Recorded V/S: Last Vital Signs Temp 98.3 F 12/22/19 06:49 Pulse 95 12/22/19 06:49 Resp 16 12/22/19 06:49 BP 163/88 H 12/22/19 06:49 Pulse Ox 91 L 12/22/19 06:49 - Orders/Labs/Meds Orders: Active Orders 24 hr Category Date Time Status Grayson Catheter Insertion [Insert Urinary Catheter] [OM. Care 12/22/19 07:15 Ordered PC] Q24H Urinary Catheter Assessment [RC] ASDIRECTED Care 12/22/19 07:12 Active - Re-Assessments/Exams Free Text/Narrative Re-Assessment/Exam: 12/22/19 09:08 Bladder scan showed that he was retaining about 500 ml urine. Catheter placed without difficulty. There was good drainage. Discharge instructions as documented. Departure - Departure Time of Disposition: 07:50 Disposition: Home, Self-Care 01 Condition: Fair Clinical Impression: Urinary retention - Discharge Information Instructions: Acute Urinary Retention, Male, [id number] Referrals: Kelly Graham MD [Primary Care Provider] - Forms: ED Department Discharge Additional Instructions: Grayson catheter with leg bag as before. Drink plenty of water to maintain hydration. Follow up clinic as needed, return to ED as needed. Sepsis Event Note - Evaluation Sepsis Screening Result: No Definite Risk - Focused Exam Vital Signs: Vital Signs Temp Pulse Resp BP Pulse Ox 12/22/19 06:49 98.3 F 95 16 163/88 H 91 L Date Exam was Performed: 12/22/19 Time Exam was Performed: 09:06 - My Orders Last 24 Hours: My Active Orders 12/22/19 07:12 Urinary Catheter Assessment [RC] ASDIRECTED 12/22/19 07:15 Grayson Catheter Insertion [Insert Urinary Catheter] [OM.PC] Q24H - Assessment/Plan Last 24 Hours: My Active Orders 12/22/19 07:12 Urinary Catheter Assessment [RC] ASDIRECTED 12/22/19 07:15 Grayson Catheter Insertion [Insert Urinary Catheter] [OM.PC] Q24H
== END 2019-12-22 08:15 | disposition home or self-care (01) ==
LOC: JD.ED 06:41
DX: R33.9 Retention of urine, unspecified (principal); I10 Essential (primary) hypertension; N40.0 Benign prostatic hyperplasia without lower urinary tract symptoms; Z88.1 Allergy status to other antibiotic agents; Z79.899 Other long term (current) drug therapy; Z86.73 Personal history of transient ischemic attack (TIA), and cerebral infarction without residual deficits
CPT/HCPCS: 51702; 51798; 99282; 99283

== ENCOUNTER 2020-05-06 22:35 | Inpatient (IN) | payer MEDICARE, OTHER ==
--- NOTE | 2020-05-07 00:03 | EDM.PDOC ---
ED HPI GENERAL MEDICAL PROBLEM - General Chief Complaint: General Stated Complaint: [facility] Time Seen by Provider: 05/06/20 23:52 - History of Present Illness INITIAL COMMENTS - FREE TEXT/NARRATIVE: 89-year-old male presents the emergency room after EMS was called to assist him after he fell in his apartment at an assisted living center. When I went to see the patient he told me he was ready to go home. I asked the patient what brought him in and how can I help him. He answered, I do not know. Patient denies pain. Apparently the patient had his Grayson catheter changed in the clinic today and he has had some bleeding from this. This was reported to us by EMS. Nursing did notice that his stool is black and tarry. The patient is not anticoagulated he takes a baby aspirin daily. With further discussion with the patient he does mention that he does not think is well as he should, and this is been going on for a couple of weeks according to the patient. He is unable to provide much more history. - Related Data Allergies Allergy/AdvReac Type Severity Reaction Status Date / Time azithromycin [From Zithromax] AdvReac Severe Ringing in Verified 05/06/20 22:49 the Ears Home Meds: Home Meds Finasteride 5 mg PO BID 11/07/17 [History] Lisinopril [Prinivil] 10 mg PO BID 11/07/17 [History] Terazosin [Hytrin] 1 mg PO BEDTIME 11/07/17 [History] amLODIPine Besylate [Amlodipine Besylate] 5 mg PO DAILY 07/25/18 [History] Polyethylene Glycol [Polyox Wsr-301] 17 gm PO DAILY 07/28/19 [History] Tamsulosin [Tamsulosin 24 Hr] 0.4 mg PO DAILY 07/28/19 [History] Bimatoprost [LUMIGAN 0.01% Ophth Soln] 1 drop EYEBOTH BEDTIME 07/29/19 [History] Vit A/Vit C/Vit E/Zinc/Copper [Preservision] 1 cap PO BID 07/29/19 [History] Acetaminophen [Tylenol] 650 mg PO Q6H PRN 05/07/20 [History] Aspirin [Aspirin EC] 81 mg PO DAILY 05/07/20 [History] Calcium Carbonate [Antacid] 2 tab PO ASDIRECTED PRN 05/07/20 [History] Celecoxib 200 mg PO DAILY 05/07/20 [History] Iron 65 mg PO BID 05/07/20 [History] Metoprolol Succinate 25 mg PO DAILY 05/07/20 [History] Rosuvastatin [Crestor] 5 mg PO BEDTIME 05/07/20 [History] cephALEXin [Keflex] 250 mg PO Q6H #39 capsule 05/07/20 [Rx] Past Medical History HEENT History: Reports: Glaucoma, Hard of Hearing, Impaired Vision, Macular Degeneration, Other (See Below) Other HEENT History: wears hearing aides bilaterally however still hard of hearing with those, has glasses and a full set of dentures. Cardiovascular History: Reports: High Cholesterol, Hypertension Respiratory History: Reports: None Gastrointestinal History: Reports: None Genitourinary History: Reports: BPH Musculoskeletal History: Reports: None Neurological History: Reports: TIA Psychiatric History: Reports: None Endocrine/Metabolic History: Reports: None Hematologic History: Reports: None Immunologic History: Reports: None Oncologic (Cancer) History: Reports: None Dermatologic History: Reports: None - Infectious Disease History Infectious Disease History: Reports: Influenza, Measles - Past Surgical History Head Surgeries/Procedures: Reports: None HEENT Surgical History: Reports: Cataract Surgery Respiratory Surgical History: Reports: None Neurological Surgical History: Reports: None Social & Family History - Family History Family Medical History: Noncontributory - Tobacco Use Smoking Status *Q: Never Smoker - Caffeine Use Caffeine Use: Reports: Coffee, Soda Other Caffeine Use: 1-2 cups every day. - Recreational Drug Use Recreational Drug Use: No - Living Situation & Occupation Living situation: Reports: , with Spouse Occupation: Retired ED ROS GENERAL - Review of Systems Review Of Systems: See Below Constitutional: Reports: No Symptoms HEENT: Reports: No Symptoms Respiratory: Reports: No Symptoms Cardiovascular: Reports: No Symptoms Endocrine: Reports: No Symptoms GI/Abdominal: Reports: No Symptoms : Reports: No Symptoms Musculoskeletal: Reports: No Symptoms Skin: Reports: No Symptoms Neurological: Reports: Other (He is not thinking as well as he should) Psychiatric: Reports: Confusion. Denies: Homicidal Ideation, Mood Lability, Suicidal Ideation Hematologic/Lymphatic: Reports: Easy Bleeding ED EXAM, GENERAL - Physical Exam Exam: See Below Exam Limited By: Other (He is oriented to location but not date or time) General Appearance: Alert, No Apparent Distress, Other (He seems confused) Eye Exam: Bilateral Eye: Normal Inspection Ears: Normal External Exam, Normal Canal, Hearing Grossly Normal, Normal TMs, Other (` He has hearing aids) Nose: Normal Inspection, Normal Mucosa, No Blood Throat/Mouth: Normal Inspection, Normal Lips, Normal Oropharynx, Normal Voice, No Airway Compromise Head: Atraumatic, Normocephalic Neck: Normal Inspection, Supple, Non-Tender, Full Range of Motion Respiratory/Chest: No Respiratory Distress, Lungs Clear, Normal Breath Sounds, No Accessory Muscle Use, Chest Non-Tender Cardiovascular: Normal Peripheral Pulses, Regular Rate, Rhythm, No Edema, No Murmur GI/Abdominal: Normal Bowel Sounds, Soft, Non-Tender (Male) Exam: Other (He has a Grayson in place maroon blood noted in the bag) Rectal (Males) Exam: Normal Rectal Tone, Heme - Stool, Other (Will is awfully dark and tarry surprisingly Hemoccult negative) Back Exam: Normal Inspection Extremities: Normal Inspection, No Pedal Edema Neurological: Alert, CN II-XII Intact, No Motor/Sensory Deficits, Disoriented. No: Oriented, Normal Cognition Skin Exam: Warm, Dry, Intact Course - Vital Signs Last Recorded V/S: Last Vital Signs Temp 37.7 C 05/07/20 06:04 Pulse 88 05/07/20 06:49 Resp 20 05/07/20 06:49 BP 108/53 L 05/07/20 06:49 Pulse Ox 95 05/07/20 06:49 - Orders/Labs/Meds Orders: Active Orders 24 hr Category Date Time Status EKG Documentation Completion [RC] STAT Care 05/07/20 00:08 Active Hemoccult [Fecal Occult Blood Collection] [RC] Care 05/07/20 02:05 Active ASDIRECTED RT Aerosol Therapy [RC] ASDIRECTED Care 05/07/20 04:05 Active CULTURE BLOOD [BC] Stat Lab 05/07/20 04:35 Received CULTURE BLOOD [BC] Stat Lab 05/07/20 04:50 Received CULTURE URINE [RM] Stat Lab 05/07/20 01:00 Received REFLEX LACTIC ACID YES OR NO [CHEM] Routine Lab 05/07/20 05:36 Received Lactated Ringers [Ringers, Lactated] 1,000 ml Med 05/07/20 05:45 Active IV ASDIRECTED Blood Culture x2 Reflex Set [OM.PC] Stat Oth 05/07/20 04:24 Ordered Medication Orders Lactated Ringer's (Ringers, Lactated) 1,000 mls @ 150 mls/hr IV ASDIRECTED CASTILLO Last Admin: 05/07/20 06:48 Dose: 150 mls/hr Documented by: DAVID Labs: Laboratory Tests 05/06/20 05/06/20 05/06/20 Range/Units 23:00 23:00 23:00 WBC 14.28 H (4.23-9.07) K/mm3 RBC 3.40 L (4.63-6.08) M/mm3 Hgb 8.2 L (13.7-17.5) gm/dl Hct 26.9 L (40.1-51.0) % MCV 79.1 D (79.0-92.2) fl MCH 24.1 L (25.7-32.2) pg MCHC 30.5 L (32.2-35.5) g/dl RDW Std Deviation 42.7 (35.1-43.9) fL Plt Count 317 D (163-337) K/mm3 MPV 9.7 (9.4-12.3) fl Neut % (Auto) 86.4 H (34.0-67.9) % Lymph % (Auto) 5.6 L (21.8-53.1) % [place] % (Auto) 7.8 (5.3-12.2) % Eos % (Auto) 0 L (0.8-7.0) Baso % (Auto) 0.1 (0.1-1.2) % Neut # (Auto) 12.32 H (1.78-5.38) K/mm3 Lymph # (Auto) 0.80 L (1.32-3.57) K/mm3 [place] # (Auto) 1.12 H (0.30-0.82) K/mm3 Eos # (Auto) 0.00 L (0.04-0.54) K/mm3 Baso # (Auto) 0.02 (0.01-0.08) K/mm3 Manual Slide Review Abnormal smear PT 11.8 (9.7-12.0) SECONDS INR 1.09 APTT 26 (22-31) SECONDS Sodium 132 L (136-145) mEq/L Potassium 4.0 (3.5-5.1) mEq/L Chloride 98 (98-107) mEq/L Carbon Dioxide 22 (21-32) mEq/L Anion Gap 16.0 H (5-15) BUN 21 H (7-18) mg/dL Creatinine 1.1 (0.7-1.3) mg/dL Est Cr Clr Drug Dosing 42.56 mL/min Estimated GFR (MDRD) > 60 (>60) mL/min BUN/Creatinine Ratio 19.1 H (14-18) Glucose 157 H (83-115) mg/dL Lactic Acid (0.4-2.0) mmol/L Calcium 8.1 L (8.5-10.1) mg/dL Total Bilirubin 0.5 (0.2-1.0) mg/dL AST 14 L (15-37) U/L ALT 11 L (16-63) U/L Alkaline Phosphatase 56 (46-116) U/L Troponin I < 0.017 (0.00-0.056) ng/mL Total Protein 6.7 (6.4-8.2) g/dl Albumin 2.9 L (3.4-5.0) g/dl Globulin 3.8 gm/dL Albumin/Globulin Ratio 0.8 L (1-2) Urine Color (Yellow) Urine Appearance (Clear) Urine pH (5.0-8.0) Ur Specific [place] (1.005-1.030) Urine Protein (Negative) Urine Glucose (UA) (Negative) Urine Ketones (Negative) Urine Occult Blood (Negative) Urine Nitrite (Negative) Urine Bilirubin (Negative) Urine Urobilinogen (0.2-1.0) Ur Leukocyte Esterase (Negative) Urine RBC (0-5) /hpf Urine WBC (0-5) /hpf Ur Epithelial Cells (0-5) /hpf Urine Bacteria (FEW) /hpf Urine Mucus (FEW) /hpf SARS-CoV-2 RNA (RT-PCR) (NEGATIVE) 05/07/20 05/07/20 05/07/20 Range/Units 01:00 04:35 05:25 WBC (4.23-9.07) K/mm3 RBC (4.63-6.08) M/mm3 Hgb (13.7-17.5) gm/dl Hct (40.1-51.0) % MCV (79.0-92.2) fl MCH (25.7-32.2) pg MCHC (32.2-35.5) g/dl RDW Std Deviation (35.1-43.9) fL Plt Count (163-337) K/mm3 MPV (9.4-12.3) fl Neut % (Auto) (34.0-67.9) % Lymph % (Auto) (21.8-53.1) % [place] % (Auto) (5.3-12.2) % Eos % (Auto) (0.8-7.0) Baso % (Auto) (0.1-1.2) % Neut # (Auto) (1.78-5.38) K/mm3 Lymph # (Auto) (1.32-3.57) K/mm3 [place] # (Auto) (0.30-0.82) K/mm3 Eos # (Auto) (0.04-0.54) K/mm3 Baso # (Auto) (0.01-0.08) K/mm3 Manual Slide Review PT (9.7-12.0) SECONDS INR APTT (22-31) SECONDS Sodium (136-145) mEq/L Potassium (3.5-5.1) mEq/L Chloride (98-107) mEq/L Carbon Dioxide (21-32) mEq/L Anion Gap (5-15) BUN (7-18) mg/dL Creatinine (0.7-1.3) mg/dL Est Cr Clr Drug Dosing mL/min Estimated GFR (MDRD) (>60) mL/min BUN/Creatinine Ratio (14-18) Glucose (83-115) mg/dL Lactic Acid 4.8 H* (0.4-2.0) mmol/L Calcium (8.5-10.1) mg/dL Total Bilirubin (0.2-1.0) mg/dL AST (15-37) U/L ALT (16-63) U/L Alkaline Phosphatase (46-116) U/L Troponin I (0.00-0.056) ng/mL Total Protein (6.4-8.2) g/dl Albumin (3.4-5.0) g/dl Globulin gm/dL Albumin/Globulin Ratio (1-2) Urine Color Red H (Yellow) Urine Appearance Turbid H (Clear) Urine pH >=9.0 H (5.0-8.0) Ur Specific [place] 1.015 (1.005-1.030) Urine Protein 3+ H (Negative) Urine Glucose (UA) Trace H (Negative) Urine Ketones 3+ H (Negative) Urine Occult Blood 3+ H (Negative) Urine Nitrite Positive H (Negative) Urine Bilirubin 3+ H (Negative) Urine Urobilinogen >=8.0 H (0.2-1.0) Ur Leukocyte Esterase 3+ H (Negative) Urine RBC Too numerous to cnt H (0-5) /hpf Urine WBC 10-20 H (0-5) /hpf Ur Epithelial Cells 0-5 (0-5) /hpf Urine Bacteria Many H (FEW) /hpf Urine Mucus Not seen (FEW) /hpf SARS-CoV-2 RNA (RT-PCR) Negative (NEGATIVE) Meds: Medications Generic Name Dose Route Start Last Admin Trade Name Freq PRN Reason Stop Dose Admin Lactated Ringer's 1,000 mls @ 150 mls/hr 05/07/20 05:45 05/07/20 06:48 Ringers, Lactated IV 150 mls/hr ASDIRECTED CASTILLO Administration Discontinued Medications Generic Name Dose Route Start Last Admin Trade Name Freq PRN Reason Stop Dose Admin Albuterol/Ipratropium 3 ml 05/07/20 04:05 05/07/20 04:12 Duoneb 3.0-0.5 Mg/3 Ml NEB 05/07/20 04:06 3 ml ONETIME ONE Administration Cephalexin 500 mg 05/07/20 02:54 05/07/20 03:25 Keflex PO 05/07/20 02:55 500 mg ONETIME ONE Administration Lactated Ringer's 1,000 mls @ 999 mls/hr 05/07/20 04:25 05/07/20 04:31 Ringers, Lactated IV 05/07/20 05:25 999 mls/hr .BOLUS ONE Administration Piperacillin Sod/Tazobactam 100 mls @ 200 mls/hr 05/07/20 05:42 05/07/20 06:01 Sod 4.5 gm/ Sodium Chloride IV 05/07/20 06:11 200 mls/hr ONETIME ONE Administration Lactated Ringer's 1,000 mls @ 999 mls/hr 05/07/20 05:46 05/07/20 05:51 Ringers, Lactated IV 05/07/20 06:46 999 mls/hr .BOLUS ONE Administration - Re-Assessments/Exams Free Text/Narrative Re-Assessment/Exam: 05/07/20 00:50 Nursing did check with the assisted living center he resides at and apparently this is his normal mental status. Also the patient appears to be on iron supplementation. This could explain the dark stools. On my exam he indeed had dark stools but to my surprise was Hemoccult negative. 05/07/20 02:[address] is unremarkable his labs show an anemia however this appears to be fairly stable since July of this last year his creatinine is 1.1 since July this last year it has been as low as 0.9. Urinalysis is suggestive of a possible urinary tract infection by history the patient had his catheter changed yesterday. And he has had some blood coming from the catheter this evening. Nursing did manipulate the catheter and had 600 cc of urine out and now it looks much better. They did irrigate it as well. The patient will be started on antibiotics, Keflex and will be sent back to his assisted living center. Mentioned above apparently he has longstanding dementia and this is no worse than normal. We did do a head CT and this showed no acute changes 05/07/20 04:06 Anticipating discharge the patient was taking a nap and awoke short of breath and wheezing. He does have some wheezes noted with expiration we will try DuoNeb treatment to see how he does his chest x-ray from earlier this evening was a portable chest x-ray with out any acute cardiopulmonary changes he was somewhat rotated however. Also his right hemidiaphragm is slightly more elevated compared to the left I cannot find a prior chest x-ray for comparison. Patient's heart rate has come up he is now in the 120s. We will give him a fluid bolus draw blood cultures check a lactic acid 05/07/20 04:36 At this time the hospitalist is busy will talk it over with her when she is done with the procedure. 05/07/20 05:47 Our hospitalist, Dr. Dueñas is still busy at this point working a give a second liter of LR and start Zosyn 4.5 g. Double checked the dose of Zosyn with tele-pharmacy lactic acid came back at 4.8 05/07/20 06:[address] Dueñas approximately 5 minutes ago she will return the call shortly. 05/07/20 07:[address] Dueñas. Ryan will be over shortly. Departure - Departure Time of Disposition: 04:25 Disposition: Admitted As Inpatient 66 Clinical Impression: Urinary tract infection associated with catheterization of urinary tract, History of recent fall - Discharge Information Prescriptions: cephALEXin [Keflex] 250 mg PO Q6H #39 capsule Instructions: Urinary Tract Infection, Adult, [id number] Referrals: Ernie Isaacs MD [Primary Care Provider] - Forms: ED Department Discharge Additional Instructions: Return to the emergency room with any questions problems or worsening symptoms. Take the cephalexin, this is an antibiotic, as directed and until all gone. Increase your fluid intake. Follow-up with your regular physician as needed. Sepsis Event Note (ED) - Evaluation Sepsis Screening Result: No Definite Risk - Focused Exam Vital Signs: Vital Signs Temp Pulse Resp BP Pulse Ox Pulse Ox 05/07/20 06:49 88 20 108/53 L 95 05/07/20 06:04 37.7 C 97 20 106/56 L 93 L 05/07/20 05:50 93 16 107/50 L 94 L 05/07/20 04:12 91 L 05/06/20 22:48 36.7 C 87 20 125/53 L 95 - My Orders Last 24 Hours: My Active Orders 05/07/20 00:08 EKG Documentation Completion [RC] STAT 05/07/20 01:00 CULTURE URINE [RM] Stat 05/07/20 02:05 Hemoccult [Fecal Occult Blood Collection] [RC] ASDIRECTED 05/07/20 04:05 RT Aerosol Therapy [RC] ASDIRECTED 05/07/20 04:24 Blood Culture x2 Reflex Set [OM.PC] Stat 05/07/20 04:35 CULTURE BLOOD [BC] Stat 05/07/20 04:50 CULTURE BLOOD [BC] Stat 05/07/20 05:36 REFLEX LACTIC ACID YES OR NO [CHEM] Routine 05/07/20 05:45 Lactated Ringers [Ringers, Lactated] 1,000 ml IV ASDIRECTED - Assessment/Plan Last 24 Hours: My Active Orders 05/07/20 00:08 EKG Documentation Completion [RC] STAT 05/07/20 01:00 CULTURE URINE [RM] Stat 05/07/20 02:05 Hemoccult [Fecal Occult Blood Collection] [RC] ASDIRECTED 05/07/20 04:05 RT Aerosol Therapy [RC] ASDIRECTED 05/07/20 04:24 Blood Culture x2 Reflex Set [OM.PC] Stat 05/07/20 04:35 CULTURE BLOOD [BC] Stat 05/07/20 04:50 CULTURE BLOOD [BC] Stat 05/07/20 05:36 REFLEX LACTIC ACID YES OR NO [CHEM] Routine 05/07/20 05:45 Lactated Ringers [Ringers, Lactated] 1,000 ml IV ASDIRECTED
[2020-05-07] MEDS ORDERED: Cephalexin 500 MG Cap PO ONE (02:54)
[2020-05-07] MEDS ORDERED: Albuterol/Ipratropium 3.0-0.5 MG/3 ML Neb Soln NEB ONE (04:05)
[2020-05-07] MEDS ORDERED: Lactated Ringers 1,000 ML IV ONE ×2 (04:25→05:46)
[2020-05-07] MEDS ORDERED: Piperacillin/Tazobactam 4.5 GM in Sodium Chloride 0.9% 100 ML IV ONE ×5 (05:42→18:15)
--- NOTE | 2020-05-07 06:40 | CR ---
Chest: Portable view of the chest was obtained. Comparison: No prior chest x-rays available, prior chest CT of 12/17/11 was utilized for comparison Findings: Heart size and mediastinum are normal. Lungs are clear with no acute parenchymal change. Bony structures are grossly intact. Impression: 1. Nothing acute is seen on portable chest x-ray. Diagnostic code #1 This report was dictated in MDT
--- NOTE | 2020-05-07 06:40 | CT ---
Head CT Technique: Multiple axial sections through the brain were obtained. Intravenous contrast was not utilized. Comparison: No prior intracranial imaging is available. Findings: Ventricles along with basal cisterns and sulci over the convexities are moderately to markedly prominent. Diminished density is noted within the periventricular and subcortical white matter compatible with fairly prominent small vessel ischemic demyelination change. No other abnormal parenchymal densities are seen. No evidence of intracranial hemorrhage. No midline shift or mass-effect is seen. Atherosclerotic calcification is seen within the carotid siphon and within the vertebral vessels. Bone window settings were reviewed. Mild mucosal thickening is scattered within the ethmoid sinuses. Nothing acute is appreciated within the visualized paranasal sinuses. Visualized mastoid sinuses show nothing acute. No acute calvarial finding is seen. Impression: 1. Senescent change as noted above. 2. Minimal mucosal thickening scattered within the ethmoid sinuses believed to be nonacute. 3. No acute intracranial abnormality is appreciated. Diagnostic code #2 This report was dictated in MDT I agree with preliminary report from [facility], finalized on 05/07/20, 3:15 AM Central Daylight Time
[2020-05-07] MEDS: Lactated Ringers 1,000 ML IV SCH ×2 (06:48→14:09)
[2020-05-07] MEDS ORDERED: Acetaminophen 325 MG Tab PO PRN (07:43)
[2020-05-07] MEDS ORDERED: Sodium Chloride 0.9% 10 ML Syringe FLUSH PRN (07:55)
[2020-05-07] MEDS ORDERED: Iopamidol 755 Mg/ML 100 ML Bottle IVPUSH ONE (07:55)
[2020-05-07] MEDS ORDERED: Sodium Chloride 0.9% 100 ML IV SCH (08:00)
--- NOTE | 2020-05-07 08:01 | PCM.HP.2 ---
H&P History of Present Illness - General Date of Service: 05/07/20 Admit Problem/Dx: Admission Diagnosis/Problem Admission Diagnosis/Problem Sepsis Source of Information: Patient, Alf Records, Old Records, Provider, RN Notes Reviewed History Limitations: Reports: Altered Mental Status (Baseline confusion ) - History of Present Illness Initial Comments - Free Text/Narative: Bill Hansen is an 89 yo male who presents to ED on 05/06/2020 via [facility] after he fell at [facility] where he resides. Patient has baseline dementia and per staff he is at his usual mental status. Is reported that he had his Martinez catheter change in the clinic earlier in the day and had some bleeding from this. Nursing also reports some black and tarry stools. Due to patient's baseline dementia he is a poor historian. In the ER is noted that the patient is on iron supplementation and this is likely the cause of his black stools. Hemoccult is negative. He is on a baby aspirin daily. In the ED temp was 37.7. Pulse 88. Respirations 20. Blood pressure 108/53. Pulse oximetry 95. His blood pressure did tend to stay on the low side of normal throughout his ED stay. Head CT is obtained and interpreted by Dr. Mendes as "1. Senescent changes noted above. 2. Minimal mucosal thickening scattered within the erythroid sinuses believed to be nonacute. 3. No acute intracranial abnormalities appreciated. Creatinine is modestly elevated and UA shows a urinary tract infection along with bleeding from his aforementioned Martinez change. Is noted that nursing did manipulate the catheter and 600 cc of urine was produced. While the patient was resting in the ED he suddenly awoke and was noted to have wheezing and dyspnea. Chest x-ray was obtained and showed nothing acute. He was given a DuoNeb. He is also noted to be tachycardic with a heart rate in the 120s. Fluid bolus was started and blood cultures were obtained. Lactic acid was checked and was 4.8. COVID-19 screen was negative. There is no documented fevers. He was started on Zosyn. 12-lead EKG shows sinus rhythm at 81 BPM. He carries a history of glaucoma, macular degeneration, HLD, hypertension, BPH, TIA, Multiple lung nodules, Horseshoe kidney, HTN. He was never smoker. There is no documented history of confusion or dementia but per [facility] staff he is at baseline confusion. His PCP is Dr. Graham. Assisted living paperwork notes "CPR" for code status. At this time we will put him in is a full code until we clarify. He will be admitted to the medical floor on telemetry for management of his sepsis, urinary tract infection, and work-up of his acute respiratory symptoms. - Related Data Allergies/Adverse Reactions: Allergies Allergy/AdvReac Type Severity Reaction Status Date / Time azithromycin [From Zithromax] AdvReac Severe Ringing in Verified 05/06/20 22:49 the Ears Home Medications: Home Meds Finasteride 5 mg PO BID 11/07/17 [History] Lisinopril [Prinivil] 10 mg PO BID 11/07/17 [History] Terazosin [Hytrin] 1 mg PO BEDTIME 11/07/17 [History] amLODIPine Besylate [Amlodipine Besylate] 5 mg PO DAILY 07/25/18 [History] Polyethylene Glycol [Polyox Wsr-301] 17 gm PO DAILY 07/28/19 [History] Tamsulosin [Tamsulosin 24 Hr] 0.4 mg PO DAILY 07/28/19 [History] Bimatoprost [LUMIGAN 0.01% Ophth Soln] 1 drop EYEBOTH BEDTIME 07/29/19 [History] Vit A/Vit C/Vit E/Zinc/Copper [Preservision] 1 cap PO BID 07/29/19 [History] Acetaminophen [Tylenol] 650 mg PO Q6H PRN 05/07/20 [History] Aspirin [Aspirin EC] 81 mg PO DAILY 05/07/20 [History] Calcium Carbonate [Antacid] 2 tab PO ASDIRECTED PRN 05/07/20 [History] Celecoxib 200 mg PO DAILY 05/07/20 [History] Iron 65 mg PO BID 05/07/20 [History] Metoprolol Succinate 25 mg PO DAILY 05/07/20 [History] Rosuvastatin [Crestor] 5 mg PO BEDTIME 05/07/20 [History] Past Medical History HEENT History: Reports: Glaucoma, Hard of Hearing, Impaired Vision, Macular Degeneration, Other (See Below) Other HEENT History: wears hearing aides bilaterally however still hard of hearing with those, has glasses and a full set of dentures. Cardiovascular History: Reports: High Cholesterol, Hypertension Respiratory History: Reports: None Gastrointestinal History: Reports: None Genitourinary History: Reports: BPH Musculoskeletal History: Reports: None Neurological History: Reports: TIA Psychiatric History: Reports: None Endocrine/Metabolic History: Reports: None Hematologic History: Reports: None Immunologic History: Reports: None Oncologic (Cancer) History: Reports: None Dermatologic History: Reports: None - Infectious Disease History Infectious Disease History: Reports: Influenza, Measles - Past Surgical History Head Surgeries/Procedures: Reports: None HEENT Surgical History: Reports: Cataract Surgery Respiratory Surgical History: Reports: None Neurological Surgical History: Reports: None Social & Family History - Family History Family Medical History: Noncontributory - Tobacco Use Smoking Status *Q: Never Smoker - Caffeine Use Caffeine Use: Reports: Coffee, Soda Other Caffeine Use: 1-2 cups every day. - Recreational Drug Use Recreational Drug Use: No - Living Situation & Occupation Living situation: Reports: , with Spouse Occupation: Retired H&P Review of Systems - Review of Systems: Review Of Systems: See Below General: Reports: No Symptoms. Denies: Fever, Chills, Weakness HEENT: Reports: No Symptoms Pulmonary: Reports: No Symptoms. Denies: Shortness of Breath, Cough Cardiovascular: Reports: No Symptoms. Denies: Chest Pain Gastrointestinal: Reports: No Symptoms. Denies: Abdominal Pain, Nausea Genitourinary: Reports: No Symptoms Musculoskeletal: Reports: No Symptoms Skin: Reports: No Symptoms Psychiatric: Reports: Confusion (Baseline ) Neurological: Reports: No Symptoms Hematologic/Lymphatic: Reports: No Symptoms Review of Systems Comment:: Unable to reliably obtain review of systems due to patient's baseline confusion. He denies any current pain or shortness of breath. Exam - Exam Exam: See Below - Vital Signs Vital Signs: Last Vital Signs Temp 98.3 F 05/07/20 07:26 Pulse 88 05/07/20 07:26 Resp 24 H 05/07/20 07:26 BP 100/54 L 05/07/20 07:26 Pulse Ox 95 05/07/20 07:26 Weight: 170 lb - Exam Quality Assessment: Urinary Catheter (Chronic - maroon colored urine draining into bag), DVT Prophylaxis. No: Supplemental Oxygen General: Alert, Cooperative. No: Oriented, Mild Distress HEENT: Conjunctiva Clear, EACs Clear, Mucosa Moist & [place], Posterior Pharynx Clear Neck: Supple, Trachea Midline Lungs: Clear to Auscultation, Normal Respiratory Effort Cardiovascular: Regular Rate, Regular Rhythm GI/Abdominal Exam: Normal Bowel Sounds, Soft, Non-Tender, No Distention (Male) Exam: Deferred Rectal (Males) Exam: Deferred Back Exam: Normal Inspection, Decreased Range of Motion. No: CVA Tenderness (L), CVA Tenderness (R) Extremities: Normal Inspection, Normal Range of Motion, Non-Tender, No Pedal Edema, Normal Capillary Refill Peripheral Pulses: 3+: Dorsalis Pedis (L), Dorsalis Pedis (R), 4+: Radial (L), Radial (R) Skin: Warm, Dry, Intact Neurological: Cranial Nerves Intact (Grossly ) Neuro Extensive - Mental Status: Alert, Normal Mood/Affect. No: Oriented x3 - Patient Data Lab Results Last 24 hrs: Laboratory Results - last 24 hr 05/06/20 05/06/20 05/06/20 Range/Units 23:00 23:00 23:00 WBC 14.28 H (4.23-9.07) K/mm3 RBC 3.40 L (4.63-6.08) M/mm3 Hgb 8.2 L (13.7-17.5) gm/dl Hct 26.9 L (40.1-51.0) % MCV 79.1 D (79.0-92.2) fl MCH 24.1 L (25.7-32.2) pg MCHC 30.5 L (32.2-35.5) g/dl RDW Std Deviation 42.7 (35.1-43.9) fL Plt Count 317 D (163-337) K/mm3 MPV 9.7 (9.4-12.3) fl Neut % (Auto) 86.4 H (34.0-67.9) % Lymph % (Auto) 5.6 L (21.8-53.1) % Pennington % (Auto) 7.8 (5.3-12.2) % Eos % (Auto) 0 L (0.8-7.0) Baso % (Auto) 0.1 (0.1-1.2) % Neut # (Auto) 12.32 H (1.78-5.38) K/mm3 Lymph # (Auto) 0.80 L (1.32-3.57) K/mm3 Pennington # (Auto) 1.12 H (0.30-0.82) K/mm3 Eos # (Auto) 0.00 L (0.04-0.54) K/mm3 Baso # (Auto) 0.02 (0.01-0.08) K/mm3 Manual Slide Review Abnormal smear PT 11.8 (9.7-12.0) SECONDS INR 1.09 APTT 26 (22-31) SECONDS Sodium 132 L (136-145) mEq/L Potassium 4.0 (3.5-5.1) mEq/L Chloride 98 (98-107) mEq/L Carbon Dioxide 22 (21-32) mEq/L Anion Gap 16.0 H (5-15) BUN 21 H (7-18) mg/dL Creatinine 1.1 (0.7-1.3) mg/dL Est Cr Clr Drug Dosing 42.56 mL/min Estimated GFR (MDRD) > 60 (>60) mL/min BUN/Creatinine Ratio 19.1 H (14-18) Glucose 157 H (83-115) mg/dL Lactic Acid (0.4-2.0) mmol/L Calcium 8.1 L (8.5-10.1) mg/dL Total Bilirubin 0.5 (0.2-1.0) mg/dL AST 14 L (15-37) U/L ALT 11 L (16-63) U/L Alkaline Phosphatase 56 (46-116) U/L Troponin I < 0.017 (0.00-0.056) ng/mL Total Protein 6.7 (6.4-8.2) g/dl Albumin 2.9 L (3.4-5.0) g/dl Globulin 3.8 gm/dL Albumin/Globulin Ratio 0.8 L (1-2) Urine Color (Yellow) Urine Appearance (Clear) Urine pH (5.0-8.0) Ur Specific Hondo (1.005-1.030) Urine Protein (Negative) Urine Glucose (UA) (Negative) Urine Ketones (Negative) Urine Occult Blood (Negative) Urine Nitrite (Negative) Urine Bilirubin (Negative) Urine Urobilinogen (0.2-1.0) Ur Leukocyte Esterase (Negative) Urine RBC (0-5) /hpf Urine WBC (0-5) /hpf Ur Epithelial Cells (0-5) /hpf Urine Bacteria (FEW) /hpf Urine Mucus (FEW) /hpf SARS-CoV-2 RNA (RT-PCR) (NEGATIVE) 05/07/20 05/07/20 05/07/20 Range/Units 01:00 04:35 05:25 WBC (4.23-9.07) K/mm3 RBC (4.63-6.08) M/mm3 Hgb (13.7-17.5) gm/dl Hct (40.1-51.0) % MCV (79.0-92.2) fl MCH (25.7-32.2) pg MCHC (32.2-35.5) g/dl RDW Std Deviation (35.1-43.9) fL Plt Count (163-337) K/mm3 MPV (9.4-12.3) fl Neut % (Auto) (34.0-67.9) % Lymph % (Auto) (21.8-53.1) % Pennington % (Auto) (5.3-12.2) % Eos % (Auto) (0.8-7.0) Baso % (Auto) (0.1-1.2) % Neut # (Auto) (1.78-5.38) K/mm3 Lymph # (Auto) (1.32-3.57) K/mm3 Pennington # (Auto) (0.30-0.82) K/mm3 Eos # (Auto) (0.04-0.54) K/mm3 Baso # (Auto) (0.01-0.08) K/mm3 Manual Slide Review PT (9.7-12.0) SECONDS INR APTT (22-31) SECONDS Sodium (136-145) mEq/L Potassium (3.5-5.1) mEq/L Chloride (98-107) mEq/L Carbon Dioxide (21-32) mEq/L Anion Gap (5-15) BUN (7-18) mg/dL Creatinine (0.7-1.3) mg/dL Est Cr Clr Drug Dosing mL/min Estimated GFR (MDRD) (>60) mL/min BUN/Creatinine Ratio (14-18) Glucose (83-115) mg/dL Lactic Acid 4.8 H* (0.4-2.0) mmol/L Calcium (8.5-10.1) mg/dL Total Bilirubin (0.2-1.0) mg/dL AST (15-37) U/L ALT (16-63) U/L Alkaline Phosphatase (46-116) U/L Troponin I (0.00-0.056) ng/mL Total Protein (6.4-8.2) g/dl Albumin (3.4-5.0) g/dl Globulin gm/dL Albumin/Globulin Ratio (1-2) Urine Color Red H (Yellow) Urine Appearance Turbid H (Clear) Urine pH >=9.0 H (5.0-8.0) Ur Specific Hondo 1.015 (1.005-1.030) Urine Protein 3+ H (Negative) Urine Glucose (UA) Trace H (Negative) Urine Ketones 3+ H (Negative) Urine Occult Blood 3+ H (Negative) Urine Nitrite Positive H (Negative) Urine Bilirubin 3+ H (Negative) Urine Urobilinogen >=8.0 H (0.2-1.0) Ur Leukocyte Esterase 3+ H (Negative) Urine RBC Too numerous to cnt H (0-5) /hpf Urine WBC 10-20 H (0-5) /hpf Ur Epithelial Cells 0-5 (0-5) /hpf Urine Bacteria Many H (FEW) /hpf Urine Mucus Not seen (FEW) /hpf SARS-CoV-2 RNA (RT-PCR) Negative (NEGATIVE) Result Diagrams: 05/06/20 23:00 05/06/20 23:00 Sepsis Event Note - Evaluation Sepsis Screening Result: No Definite Risk Current Stage of Sepsis: Sepsis Possible Source of Sepsis: Genitourinary - Focused Exam Sepsis Event Note Statement: Focused Sepsis Exam Completed Vital Signs: Vital Signs Temp Pulse Resp BP Pulse Ox Pulse Ox 05/07/20 07:26 98.3 F 88 24 H 100/54 L 95 05/07/20 06:49 88 20 108/53 L 95 05/07/20 06:04 100 F 97 20 106/56 L 93 L 05/07/20 05:50 93 16 107/50 L 94 L 05/07/20 04:12 91 L 05/06/20 22:48 98.0 F 87 20 125/53 L 95 Date Exam was Performed: 05/07/20 Time Exam was Performed: 15:47 - Problem List (1) Sepsis SNOMED Code(s): 67746835 ICD Code: A41.9 - SEPSIS, UNSPECIFIED ORGANISM Status: Acute Priority: High Current Visit: Yes Qualifiers: Sepsis type: sepsis due to unspecified organism Sepsis acute organ dysfunction status: with acute organ dysfunction Severe 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 Severe sepsis shock status: without septic shock Qualified Code(s): A41.9 - Sepsis, unspecified organism; R65.20 - Severe sepsis without septic shock; G72.81 - Critical illness myopathy (2) Chronic indwelling Martinez catheter SNOMED Code(s): 532439297 ICD Code: Z97.8 - PRESENCE OF OTHER SPECIFIED DEVICES Status: Chronic Priority: High Current Visit: Yes (3) Glaucoma SNOMED Code(s): 51107628 ICD Code: H40.9 - UNSPECIFIED GLAUCOMA Status: Chronic Priority: Low Current Visit: No Qualifiers: Glaucoma type: unspecified Laterality: unspecified laterality Qualified Code(s): H40.9 - Unspecified glaucoma (4) Macular degeneration SNOMED Code(s): 337283461 ICD Code: H35.30 - UNSPECIFIED MACULAR DEGENERATION Status: Chronic Priority: Low Current Visit: No Qualifiers: Macular degeneration type: unspecified type Eye laterality: unspecified Qualified Code(s): H35.30 - Unspecified macular degeneration (5) HLD (hyperlipidemia) SNOMED Code(s): 29510542 ICD Code: E78.5 - HYPERLIPIDEMIA, UNSPECIFIED Status: Chronic Priority: Low Current Visit: No Qualifiers: Hyperlipidemia type: unspecified Qualified Code(s): E78.5 - Hyperlipidemia, unspecified (6) HTN (hypertension) SNOMED Code(s): 98538327 ICD Code: I10 - ESSENTIAL (PRIMARY) HYPERTENSION Status: Chronic Priority: Medium Current Visit: No Qualifiers: Hypertension type: unspecified Qualified Code(s): I10 - Essential (primary) hypertension (7) BPH (benign prostatic hyperplasia) SNOMED Code(s): 955013875 ICD Code: N40.0 - BENIGN PROSTATIC HYPERPLASIA WITHOUT LOWER URINRY TRACT SYMP Status: Chronic Priority: Low Current Visit: No Qualifiers: Lower urinary tract symptom presence: unspecified whether lower urinary tract symptoms present Qualified Code(s): N40.0 - Benign prostatic hyperplasia without lower urinary tract symptoms (8) TIA (transient ischemic attack) SNOMED Code(s): 832922692 ICD Code: G45.9 - TRANSIENT CEREBRAL ISCHEMIC ATTACK, UNSPECIFIED Status: Chronic Priority: Low Current Visit: No (9) Confusion SNOMED Code(s): 303570754 ICD Code: R41.0 - DISORIENTATION, UNSPECIFIED Status: Chronic Priority: High Current Visit: Yes (10) History of recent fall SNOMED Code(s): 806934835 ICD Code: Z91.81 - HISTORY OF FALLING Status: Acute Priority: High Current Visit: Yes (11) Urinary tract infection associated with catheterization of urinary tract SNOMED Code(s): 500300496 ICD Code: T83.511A - I/I REACT D/T INDWELLING URETHRAL CATHETER, INIT; N39.0 - URINARY TRACT INFECTION, SITE NOT SPECIFIED Status: Acute Priority: High Current Visit: Yes Qualifiers: Indwelling urinary catheter type: indwelling urethral catheter Encounter type: initial encounter Qualified Code(s): T83.511A - Infection and infl ammatory reaction due to indwelling urethral catheter, initial encounter; N39.0 - Urinary tract infection, site not specified (12) Acute renal failure SNOMED Code(s): 65954518 ICD Code: N17.9 - ACUTE KIDNEY FAILURE, UNSPECIFIED Status: Acute Priority: Medium Current Visit: Yes Qualifiers: Acute renal failure type: unspecified Qualified Code(s): N17.9 - Acute kidney failure, unspecified (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 SNOMED Code(s): 30249557 ICD Code: Q63.1 - LOBULATED, FUSED AND HORSESHOE KIDNEY Status: Chronic Priority: Low Current Visit: Yes (14) Lung nodules SNOMED Code(s): 943053749 ICD Code: R91.8 - OTHER NONSPECIFIC ABNORMAL FINDING OF LUNG FIELD Status: Chronic Priority: Medium Current Visit: Yes (15) Hematuria SNOMED Code(s): 11347397 ICD Code: R31.9 - HEMATURIA, UNSPECIFIED Status: Acute Priority: Medium Current Visit: Yes Qualifiers: Hematuria type: unspecified type Qualified Code(s): R31.9 - Hematuria, unspecified Problem List Initiated/Reviewed/Updated: Yes Orders Last 24hrs: Active Orders 24 hr Category Date Time Status Patient Status [ADT] Routine ADT 05/07/20 07:43 Active Antiembolic Devices [RC] PER UNIT ROUTINE Care 05/07/20 07:45 Active Cardiac Monitoring [RC] CONTINUOUS Care 05/07/20 07:45 Active EKG Documentation Completion [RC] STAT Care 05/07/20 00:08 Active Height and Weight [RC] DAILY Care 05/07/20 07:43 Active Hemoccult [Fecal Occult Blood Collection] [RC] Care 05/07/20 02:05 Active ASDIRECTED Intake and Output [RC] QSHIFT Care 05/07/20 07:45 Active Oxygen Therapy [RC] PRN Care 05/07/20 07:43 Active Pulse Oximetry [RC] PRN Care 05/07/20 07:45 Active RT Aerosol Therapy [RC] ASDIRECTED Care 05/07/20 04:05 Active RT Aerosol Therapy [RC] ASDIRECTED Care 05/07/20 07:46 Active Up With Assistance [RC] ASDIRECTED Care 05/07/20 07:43 Active VTE/DVT Education [RC] PER UNIT ROUTINE Care 05/07/20 07:43 Active Vital Signs [RC] Q4H Care 05/07/20 07:43 Active Consult to Case Management/Alterations Expert [CONS] Cons 05/07/20 07:43 Active Routine Consult to Spiritual Care [CONS] Routine Cons 05/07/20 07:43 Active OT Evaluation and Treatment [CONS] Routine Cons 05/07/20 07:43 Active PT Evaluation and Treatment [CONS] Routine Cons 05/07/20 07:43 Active Respiratory Care Assess and Treatment [CONS] Routine Cons 05/07/20 07:43 Active Heart Healthy Diet [DIET] Diet 05/07/20 Lunch Active CTA Chest W WO Contrast [Ang Chest] [CT] Stat Exams 05/07/20 07:48 Ordered CULTURE BLOOD [BC] Stat Lab 05/07/20 04:35 Received CULTURE BLOOD [BC] Stat Lab 05/07/20 04:50 Received CULTURE URINE [RM] Stat Lab 05/07/20 01:00 Received LACTATE SEPSIS W/ REFLEX [CHEM] Routine Lab 05/07/20 09:30 Ordered LACTIC ACID [CHEM] Routine Lab 05/07/20 07:36 Ordered MAGNESIUM [CHEM] Stat Lab 05/07/20 07:54 Ordered MYCOPLASMA PNEUMONIAE IGM AB [CHEM] Stat Lab 05/07/20 07:46 Ordered PHOSPHORUS [CHEM] Stat Lab 05/07/20 07:54 Ordered PROCALCITONIN [REF] Q48H Lab 05/07/20 07:47 Ordered PROCALCITONIN [REF] Q48H Lab 05/09/20 07:47 Ordered PROCALCITONIN [REF] Q48H Lab 05/11/20 07:47 Ordered STREP PNEUMONIAE ANTIGEN [MREF] Stat Lab 05/07/20 07:50 Ordered Acetaminophen [Tylenol] Med 05/07/20 07:43 Active 650 mg PO Q4H PRN Albuterol/Ipratropium [DuoNeb 3.0-0.5 MG/3 ML] Med 05/07/20 07:43 Active 3 ml NEB Q4H PRN Lactated Ringers [Ringers, Lactated] 1,000 ml Med 05/07/20 05:45 Active IV ASDIRECTED Sodium Chloride 0.9% [Normal Saline] 100 ml Med 05/07/20 08:00 Active IV ASDIRECTED Sodium Chloride 0.9% [Saline Flush] Med 05/07/20 07:55 Active 10 ml FLUSH ONETIME PRN Blood Culture x2 Reflex Set [OM.PC] Stat Oth 05/07/20 04:24 Ordered Sequential Compression Device [OM.PC] Per Unit Routine Oth 05/07/20 07:45 Ordered Severe Sepsis Onset Time [OM.PC] Stat Oth 05/07/20 07:49 Ordered Resuscitation Status Routine Resus Stat 05/07/20 07:43 Ordered Medication Orders Acetaminophen (Tylenol) 650 mg PO Q4H PRN PRN Reason: Pain (Mild 1-3)/fever Albuterol/Ipratropium (Duoneb 3.0-0.5 Mg/3 Ml) 3 ml NEB Q4H PRN PRN Reason: Shortness Of Breath/wheezing Lactated Ringer's (Ringers, Lactated) 1,000 mls @ 150 mls/hr IV ASDIRECTED CASTILLO Last Admin: 05/07/20 06:48 Dose: 150 mls/hr Documented by: SCHKAT Sodium Chloride (Normal Saline) 100 mls @ 75 mls/hr IV ASDIRECTED CASTILLO Sodium Chloride (Saline Flush) 10 ml FLUSH ONETIME PRN PRN Reason: IV FLUSH Assessment/Plan Comment:: Sepsis Urinary tract infection associated with catheterization of urinary tract Chronic indwelling Martinez catheter History of recent fall Confusion Horseshoe kidney Hematuria Presented to ED after fall at [facility] Quite confused - ED provider notes [facility] staff states this is his baseline Head CT negative for acute abnormality Recently had chronic martinez changed in clinic - resulting in gross hematuria Black stool in ED -> On iron therapy and heme negative WBC 14.28 INR 1.09 Anion gap 16.0 Lactic acid 4.8 UA positive with red, turbid urine, 3+ protein, 3+ ketones, 3+ Occult blood, Positive nitrite, 3+ bilirubin, 3+ leuke eserase, 10-20WBC, Many bacteria COVID-19 screen negative Plan was to discharge back to [facility] then patient became acutely dyspneic Sepsis screen: UTI, Leukocytosis, tachypnea, Lactic acid of 4.8. MEETS SEPSIS CRITERIA IV Fluid bolus of 2L given in ED Zosyn started in ED PLAN - IV fluids as ordered - Repeat Lactic acid in 3 hrs per sepsis criteria - Blood cultures obtained and pending - Monitor BP - Continue zosyn - Hold ASA due to bleeding in urine - Continue chronic martinez - Telemetry - Urine culture obtained and pending - PT/OT - CM/SW consult Glaucoma Macular degeneration HLD (hyperlipidemia) HTN (hypertension) BPH (benign prostatic hyperplasia) TIA (transient ischemic attack) Lung nodules - Chronic Plan - Hold home BP meds as ordered due to mild hypotension - No active concerns at this time - Home medications as ordered Code status: Full code (SNF form says "CPR" will investigate this further) PCP: Dr. Graham DVT prophylaxis: SCDs - No pharmacological prophylaxis due to gross hematuria GI prophylaxis: Not indicated Social: Patient resides at [facility] Disposition: Patient will be admitted to floor with telemetry for management of sepsis 2/2 UTI. Likely length of stay 3-4 days. - Mortality Measure Prognosis:: Good
--- NOTE | 2020-05-07 08:42 | CT ---
CT chest Technique: Multiple axial sections through the chest were obtained. Intravenous contrast was utilized. Study performed as a pulmonary angiogram protocol. Comparison: Prior chest CT study of 12/17/11. Findings: Aorta shows atherosclerotic change without aneurysm. Pulmonary arteries are fairly well opacified. No filling defects are appreciated to indicate pulmonary embolism. Moderate coronary artery calcification is seen. No pericardial effusion seen. Several cysts are noted within the liver. Slight posterior parenchymal density is seen within the right lung. This is not seen on prior exam. Uncertain whether this represents interval scarring and fibrosis or represents new area of pneumonia. Slight scarring within the left base is seen. Lungs otherwise show no acute parenchymal change. Old right-sided rib fractures are noted. Degenerative change is noted within the spine. Several old left-sided rib fractures are also noted. Impression: 1. No findings of pulmonary embolism. 2. Parenchymal density posteriorly within the right lung. As mentioned above, uncertain if this is due to interval fibrosis and scarring from previous chest CT or represents new area of pneumonia. 3. Other nonacute findings as described above. Diagnostic code #3 This report was dictated in MDT
[2020-05-07] MEDS ORDERED: Lactated Ringers 1,000 ML IV SCH ×2 (16:00→19:45)
[2020-05-07] MEDS ORDERED: Piperacillin/Tazobactam 4.5 GM in Sodium Chloride 0.9% 100 ML IV SCH (18:00)
[2020-05-07] MEDS ORDERED: Sodium Chloride 0.9% 250 ML IV SCH ×2 (19:00→22:00)
[2020-05-07] MEDS: Albuterol/Ipratropium 3.0-0.5 MG/3 ML Neb Soln NEB PRN (19:54)
[2020-05-07] MEDS: Vancomycin 1.5 GM in Sodium Chloride 0.9% 500 ML IV SCH (20:29)
[2020-05-07] MEDS: Finasteride 5 MG Tab PO SCH (20:29)
[2020-05-07] MEDS: Rosuvastatin 10 MG Tab PO SCH (20:29)
[2020-05-07] MEDS: IRON 65 MG PO SCH (20:39)
[2020-05-07] MEDS: BIMATOPROST EYEBOTH SCH (20:39)
[2020-05-08] MEDS: Piperacillin/Tazobactam 4.5 GM in Sodium Chloride 0.9% 100 ML IV SCH ×3 (03:00→17:37)
[2020-05-08] MEDS: Albuterol/Ipratropium 3.0-0.5 MG/3 ML Neb Soln NEB PRN ×2 (05:45→17:49)
[2020-05-08] MEDS ORDERED: Furosemide 40 MG/4 ML VIAL IVPUSH ONE (08:00)
[2020-05-08] MEDS: Finasteride 5 MG Tab PO SCH ×2 (08:15→21:38)
[2020-05-08] MEDS: Polyethylene Glycol 3350 Powder 17 GM Packet PO SCH (08:15)
[2020-05-08] MEDS: Tamsulosin 0.4 MG Cap.ER PO SCH (08:15)
[2020-05-08] MEDS: Celecoxib 100 MG Cap PO SCH (08:15)
[2020-05-08] MEDS: Metoprolol Succinate 25 MG Tab.ER PO SCH (08:15)
[2020-05-08] MEDS: IRON 65 MG PO SCH ×2 (11:00→21:39)
--- NOTE | 2020-05-08 11:53 | PCM.PN ---
- General Info Date of Service: 05/08/20 Admission Dx/Problem (Free Text): Admission Diagnosis/Problem Admission Diagnosis/Problem Sepsis Functional Status: Reports: Pain Controlled, Tolerating Diet, Ambulating, Urinating. Denies: New Symptoms - Review of Systems General: Reports: No Symptoms. Denies: Fever, Weakness, Fatigue, Malaise, Chills HEENT: Reports: No Symptoms. Denies: Headaches, Sore Throat Pulmonary: Reports: No Symptoms. Denies: Shortness of Breath, Pleuritic Chest Pain, Cough, Sputum Cardiovascular: Reports: No Symptoms. Denies: Chest Pain Gastrointestinal: Reports: No Symptoms. Denies: Abdominal Pain, Constipation, Diarrhea, Nausea, Vomiting Genitourinary: Reports: No Symptoms. Denies: Pain Musculoskeletal: Reports: No Symptoms Skin: Reports: No Symptoms. Denies: Cyanosis Neurological: Reports: Confusion. Denies: Difficulty Walking, Weakness, Gait Disturbance Psychiatric: Reports: No Symptoms - Patient Data Vitals - Most Recent: Last Vital Signs Temp 98.1 F 05/08/20 11:32 Pulse 70 05/08/20 11:32 Resp 20 05/08/20 11:32 BP 107/84 05/08/20 11:32 Pulse Ox 96 05/08/20 11:32 Weight - Most Recent: 182 lb 1.6 oz I&O - Last 24 Hours: Intake & Output 05/07/20 05/08/20 05/08/20 22:59 06:59 14:59 Intake Total 300 860 Output Total 430 700 Balance -130 160 Lab Results Last 24 Hours: Laboratory Results - last 24 hr 05/06/20 05/07/20 05/07/20 Range/Units 23:00 10:37 18:26 WBC 13.79 H (4.23-9.07) K/mm3 RBC 3.04 L (4.63-6.08) M/mm3 Hgb 7.4 L (13.7-17.5) gm/dl Hct 24.6 L (40.1-51.0) % MCV 80.9 (79.0-92.2) fl MCH 24.3 L (25.7-32.2) pg MCHC 30.1 L (32.2-35.5) g/dl RDW Std Deviation 43.6 (35.1-43.9) fL Plt Count 267 (163-337) K/mm3 MPV 9.2 L (9.4-12.3) fl Neut % (Auto) 85.7 H (34.0-67.9) % Lymph % (Auto) 9.5 L (21.8-53.1) % [place] % (Auto) 4.4 L (5.3-12.2) % Eos % (Auto) 0.1 L (0.8-7.0) Baso % (Auto) 0.1 (0.1-1.2) % Neut # (Auto) 11.82 H (1.78-5.38) K/mm3 Lymph # (Auto) 1.31 L (1.32-3.57) K/mm3 [place] # (Auto) 0.60 (0.30-0.82) K/mm3 Eos # (Auto) 0.01 L (0.04-0.54) K/mm3 Baso # (Auto) 0.02 (0.01-0.08) K/mm3 Manual Slide Review O2 Delivery Device Room air Sodium (136-145) mEq/L Potassium (3.5-5.1) mEq/L Chloride (98-107) mEq/L Carbon Dioxide (21-32) mEq/L Anion Gap (5-15) BUN (7-18) mg/dL Creatinine (0.7-1.3) mg/dL Est Cr Clr Drug Dosing mL/min Estimated GFR (MDRD) (>60) mL/min BUN/Creatinine Ratio (14-18) Glucose (83-115) mg/dL Calcium (8.5-10.1) mg/dL Phosphorus (2.6-4.7) mg/dL Magnesium (1.8-2.4) mg/dl Total Bilirubin (0.2-1.0) mg/dL AST (15-37) U/L ALT (16-63) U/L Alkaline Phosphatase (46-116) U/L Total Protein (6.4-8.2) g/dl Albumin (3.4-5.0) g/dl Globulin gm/dL Albumin/Globulin Ratio (1-2) Procalcitonin 6.33 H (<0.10) ng/mL MRSA (PCR) Blood Type Gel Antibody Screen Crossmatch 05/07/20 05/07/2020 Range/Units 18:26 18:26 05:15 WBC 11.32 H (4.23-9.07) K/mm3 RBC 3.21 L (4.63-6.08) M/mm3 Hgb 7.9 L (13.7-17.5) gm/dl Hct 25.7 L (40.1-51.0) % MCV 80.1 (79.0-92.2) fl MCH 24.6 L (25.7-32.2) pg MCHC 30.7 L (32.2-35.5) g/dl RDW Std Deviation 43.2 (35.1-43.9) fL Plt Count 231 (163-337) K/mm3 MPV 9.6 (9.4-12.3) fl Neut % (Auto) 81.4 H (34.0-67.9) % Lymph % (Auto) 12.1 L (21.8-53.1) % [place] % (Auto) 5.8 (5.3-12.2) % Eos % (Auto) 0.4 L (0.8-7.0) Baso % (Auto) 0.1 (0.1-1.2) % Neut # (Auto) 9.21 H (1.78-5.38) K/mm3 Lymph # (Auto) 1.37 (1.32-3.57) K/mm3 [place] # (Auto) 0.66 (0.30-0.82) K/mm3 Eos # (Auto) 0.05 (0.04-0.54) K/mm3 Baso # (Auto) 0.01 (0.01-0.08) K/mm3 Manual Slide Review Abnormal smear O2 Delivery Device Sodium 134 L (136-145) mEq/L Potassium 4.5 (3.5-5.1) mEq/L Chloride 101 (98-107) mEq/L Carbon Dioxide 24 (21-32) mEq/L Anion Gap 13.5 (5-15) BUN 24 H (7-18) mg/dL Creatinine 1.2 (0.7-1.3) mg/dL Est Cr Clr Drug Dosing 39.02 mL/min Estimated GFR (MDRD) 57 (>60) mL/min BUN/Creatinine Ratio 20.0 H (14-18) Glucose 155 H (83-115) mg/dL Calcium 8.0 L (8.5-10.1) mg/dL Phosphorus 2.9 (2.6-4.7) mg/dL Magnesium 2.0 (1.8-2.4) mg/dl Total Bilirubin (0.2-1.0) mg/dL AST (15-37) U/L ALT (16-63) U/L Alkaline Phosphatase (46-116) U/L Total Protein (6.4-8.2) g/dl Albumin (3.4-5.0) g/dl Globulin gm/dL Albumin/Globulin Ratio (1-2) Procalcitonin (<0.10) ng/mL MRSA (PCR) Blood Type O POSITIVE Gel Antibody Screen Negative Crossmatch See Detail 05/08/20 05/08/20 Range/Units 05:15 05:25 WBC (4.23-9.07) K/mm3 RBC (4.63-6.08) M/mm3 Hgb (13.7-17.5) gm/dl Hct (40.1-51.0) % MCV (79.0-92.2) fl MCH (25.7-32.2) pg MCHC (32.2-35.5) g/dl RDW Std Deviation (35.1-43.9) fL Plt Count (163-337) K/mm3 MPV (9.4-12.3) fl Neut % (Auto) (34.0-67.9) % Lymph % (Auto) (21.8-53.1) % [place] % (Auto) (5.3-12.2) % Eos % (Auto) (0.8-7.0) Baso % (Auto) (0.1-1.2) % Neut # (Auto) (1.78-5.38) K/mm3 Lymph # (Auto) (1.32-3.57) K/mm3 [place] # (Auto) (0.30-0.82) K/mm3 Eos # (Auto) (0.04-0.54) K/mm3 Baso # (Auto) (0.01-0.08) K/mm3 Manual Slide Review O2 Delivery Device Sodium 136 (136-145) mEq/L Potassium 3.8 (3.5-5.1) mEq/L Chloride 105 (98-107) mEq/L Carbon Dioxide 22 (21-32) mEq/L Anion Gap 12.8 (5-15) BUN 21 H (7-18) mg/dL Creatinine 1.1 (0.7-1.3) mg/dL Est Cr Clr Drug Dosing 42.56 mL/min Estimated GFR (MDRD) > 60 (>60) mL/min BUN/Creatinine Ratio 19.1 H (14-18) Glucose 106 (83-115) mg/dL Calcium 7.6 L (8.5-10.1) mg/dL Phosphorus (2.6-4.7) mg/dL Magnesium 1.9 (1.8-2.4) mg/dl Total Bilirubin 1.2 H (0.2-1.0) mg/dL AST 43 H (15-37) U/L ALT 15 L (16-63) U/L Alkaline Phosphatase 43 L (46-116) U/L Total Protein 5.4 L (6.4-8.2) g/dl Albumin 2.2 L (3.4-5.0) g/dl Globulin 3.2 gm/dL Albumin/Globulin Ratio 0.7 L (1-2) Procalcitonin (<0.10) ng/mL MRSA (PCR) Negative Blood Type Gel Antibody Screen Crossmatch [place] Results Last 24 Hours: Microbiology 05/07/20 04:50 Aerobic Blood Culture - Preliminary Blood - Venous - Lab Draw Gram Negative Rods Gram Positive Cocci In Chains Anaerobic Blood Culture - Preliminary Gram Negative Rods 05/07/20 04:35 Aerobic Blood Culture - Preliminary Blood - Venous Gram Negative Rods Anaerobic Blood Culture - Preliminary Gram Negative Rods Gram Positive Cocci In Chains 05/07/20 01:00 Urine Culture - Preliminary Urine, Martinez Cath (Indwelling) Gram Negative Rods Med Orders - Current: Current Medications Acetaminophen (Tylenol) 650 mg PO Q4H PRN PRN Reason: Pain (Mild 1-3)/fever Albuterol/Ipratropium (Duoneb 3.0-0.5 Mg/3 Ml) 3 ml NEB Q4H PRN PRN Reason: Shortness Of Breath/wheezing Last Admin: 05/08/20 05:45 Dose: 3 ml Documented by: Celecoxib (Celebrex) 200 mg PO DAILY [facility] Last Admin: 05/08/20 08:15 Dose: 200 mg Documented by: Finasteride (Proscar) 5 mg PO BID [facility] Last Admin: 05/08/20 08:15 Dose: 5 mg Documented by: Piperacillin Sod/Tazobactam (Sod 4.5 gm/ Sodium Chloride) 100 mls @ 25 mls/hr IV Q8H [facility] Last Admin: 05/08/20 11:00 Dose: 25 mls/hr Documented by: Vancomycin HCl 1.5 gm/ Sodium (Chloride) 500 mls @ 250 mls/hr IV Q24H [facility] Last Admin: 05/07/20 20:29 Dose: 250 mls/hr Documented by: Lactated Ringer's (Ringers, Lactated) 1,000 mls @ 50 mls/hr IV ASDIRECTED [facility] Last Admin: 05/08/20 00:08 Dose: 50 mls/hr Documented by: Sodium Chloride (Normal Saline) 250 mls @ 25 mls/hr IV ASDIRECTED [facility] Last Admin: 05/07/20 22:00 Dose: 25 mls/hr Documented by: Metoprolol Succinate (Toprol Xl) 25 mg PO DAILY [facility] Last Admin: 05/08/20 08:15 Dose: 25 mg Documented by: Bimatoprost 1 Drop (Ptom) 1 each EYEBOTH BEDTIME [facility] Last Admin: 05/07/20 20:39 Dose: Not Given Documented by: Iron [Iron] 65 Mg 0 each PO BID [facility] Last Admin: 05/08/20 11:00 Dose: Not Given Documented by: Polyethylene Glycol (Miralax) 17 gm PO DAILY [facility] Last Admin: 05/08/20 08:15 Dose: 17 gm Documented by: Rosuvastatin Calcium (Crestor) 5 mg PO BEDTIME [facility] Last Admin: 05/07/20 20:29 Dose: 5 mg Documented by: Sodium Chloride (Saline Flush) 10 ml FLUSH ONETIME PRN PRN Reason: IV FLUSH Last Admin: 05/07/20 08:26 Dose: 10 ml Documented by: Tamsulosin HCl (Flomax) 0.4 mg PO DAILY [facility] Last Admin: 05/08/20 08:15 Dose: 0.4 mg Documented by: Vancomycin HCl (Pharmacy To Dose - Vancomycin) 1 dose .XX ASDIRECTED PRN PRN Reason: PHARMACY TO DOSE VANCO Discontinued Medications Albuterol/Ipratropium (Duoneb 3.0-0.5 Mg/3 Ml) 3 ml NEB ONETIME ONE Stop: 05/07/20 04:06 Last Admin: 05/07/20 04:12 Dose: 3 ml Documented by: Cephalexin (Keflex) 500 mg PO ONETIME ONE Stop: 05/07/20 02:55 Last Admin: 05/07/20 03:25 Dose: 500 mg Documented by: Furosemide (Lasix) 40 mg IVPUSH NOW ONE Stop: 05/08/20 08:01 Last Admin: 05/08/20 08:15 Dose: 40 mg Documented by: Lactated Ringer's (Ringers, Lactated) 1,000 mls @ 999 mls/hr IV .BOLUS ONE Stop: 05/07/20 05:25 Last Admin: 05/07/20 04:31 Dose: 999 mls/hr Documented by: Piperacillin Sod/Tazobactam (Sod 4.5 gm/ Sodium Chloride) 100 mls @ 200 mls/hr IV ONETIME ONE Stop: 05/07/20 06:11 Last Admin: 05/07/20 06:01 Dose: 200 mls/hr Documented by: Lactated Ringer's (Ringers, Lactated) 1,000 mls @ 150 mls/hr IV ASDIRECTED [facility] Last Admin: 05/07/20 14:09 Dose: 150 mls/hr Documented by: Lactated Ringer's (Ringers, Lactated) 1,000 mls @ 999 mls/hr IV .BOLUS ONE Stop: 05/07/20 06:46 Last Admin: 05/07/20 05:51 Dose: 999 mls/hr Documented by: Sodium Chloride (Normal Saline) 100 mls @ 75 mls/hr IV ASDIRECTED [facility] Last Admin: 05/07/20 08:26 Dose: 75 mls/hr Documented by: Lactated Ringer's (Ringers, Lactated) 1,000 mls @ 100 mls/hr IV ASDIRECTED [facility] Vancomycin HCl 1 gm/ Sodium (Chloride) 250 mls @ 250 mls/hr IV Q12HR [facility] Piperacillin Sod/Tazobactam (Sod 4.5 gm/ Sodium Chloride) 100 mls @ 200 mls/hr IV ONETIME ONE Stop: 05/07/20 18:44 Last Admin: 05/07/20 18:41 Dose: 200 mls/hr Documented by: Sodium Chloride (Normal Saline) 250 mls @ 100 mls/hr IV ASDIRECTED [facility] Iopamidol (Isovue-370 (76%)) 100 ml IVPUSH ONETIME ONE Stop: 05/07/20 07:56 Last Admin: 05/07/20 08:26 Dose: 100 ml Documented by: - Exam Quality Assessment: DVT Prophylaxis General: Alert, Cooperative, No Acute Distress. No: Oriented HEENT: Pupils Equal, Pupils Reactive, Mucous Membr. Moist/[place] Neck: Supple, Trachea Midline Lungs: Normal Respiratory Effort, Decreased Breath Sounds, Rhonchi (mild ) Cardiovascular: Regular Rate, Regular Rhythm GI/Abdominal Exam: Normal Bowel Sounds, Soft, Non-Tender, No Organomegaly, No Distention (Male) Exam: Deferred Back Exam: Normal Inspection, Decreased Range of Motion Extremities: Normal Inspection, Normal Range of Motion, Non-Tender, No Pedal Edema, Normal Capillary Refill Skin: Warm, Dry, Intact Neurological: No New Focal Deficit Psy/Mental Status: Alert Sepsis Event Note - Evaluation Sepsis Screening Result: No Definite Risk - Focused Exam Vital Signs: Vital Signs Temp Pulse Resp BP Pulse Ox Pulse Ox 05/08/20 11:32 98.1 F 70 20 107/84 96 05/08/20 08:15 81 138/61 05/08/20 07:45 94 L 05/08/20 07:27 98.8 F 81 20 138/61 94 L 05/08/20 05:47 98 05/08/20 02:43 99.3 F 79 28 H 108/49 L 92 L Date Exam was Performed: 05/08/20 Time Exam was Performed: 11:48 - Problem List & Annotations (1) Sepsis SNOMED Code(s): 70458803 Code(s): A41.9 - SEPSIS, UNSPECIFIED ORGANISM Status: Acute Priority: High Current Visit: Yes Qualifiers: Sepsis type: sepsis due to unspecified organism Sepsis acute organ dysfunction status: with acute organ dysfunction Severe 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 Severe sepsis shock status: without septic shock Qualified Code(s): A41.9 - Sepsis, unspecified organism; R65.20 - Severe sepsis without septic shock; G72.81 - Critical illness myopathy (2) Chronic indwelling Martinez catheter SNOMED Code(s): 374384281 Code(s): Z97.8 - PRESENCE OF OTHER SPECIFIED DEVICES Status: Chronic Priority: High Current Visit: Yes (3) Glaucoma SNOMED Code(s): 14587108 Code(s): H40.9 - UNSPECIFIED GLAUCOMA Status: Chronic Priority: Low Current Visit: No Qualifiers: Glaucoma type: unspecified Laterality: unspecified laterality Qualified Code(s): H40.9 - Unspecified glaucoma (4) Macular degeneration SNOMED Code(s): 161689770 Code(s): H35.30 - UNSPECIFIED MACULAR DEGENERATION Status: Chronic Priority: Low Current Visit: No Qualifiers: Macular degeneration type: unspecified type Eye laterality: unspecified Qualified Code(s): H35.30 - Unspecified macular degeneration (5) HLD (hyperlipidemia) SNOMED Code(s): 78859411 Code(s): E78.5 - HYPERLIPIDEMIA, UNSPECIFIED Status: Chronic Priority: Low Current Visit: No Qualifiers: Hyperlipidemia type: unspecified Qualified Code(s): E78.5 - Hyperlipidemia, unspecified (6) HTN (hypertension) SNOMED Code(s): 36070850 Code(s): I10 - ESSENTIAL (PRIMARY) HYPERTENSION Status: Chronic Priority: Medium Current Visit: No Qualifiers: Hypertension type: unspecified Qualified Code(s): I10 - Essential (primary) hypertension (7) BPH (benign prostatic hyperplasia) SNOMED Code(s): 545416380 Code(s): N40.0 - BENIGN PROSTATIC HYPERPLASIA WITHOUT LOWER URINRY TRACT SYMP Status: Chronic Priority: Low Current Visit: No Qualifiers: Lower urinary tract symptom presence: unspecified whether lower urinary tract symptoms present Qualified Code(s): N40.0 - Benign prostatic hyperplasia without lower urinary tract symptoms (8) TIA (transient ischemic attack) SNOMED Code(s): 152298388 Code(s): G45.9 - TRANSIENT CEREBRAL ISCHEMIC ATTACK, UNSPECIFIED Status: Chronic Priority: Low Current Visit: No (9) Confusion SNOMED Code(s): 541624631 Code(s): R41.0 - DISORIENTATION, UNSPECIFIED Status: Chronic Priority: High Current Visit: Yes (10) History of recent fall SNOMED Code(s): 749292090 Code(s): Z91.81 - HISTORY OF FALLING Status: Acute Priority: High Current Visit: Yes (11) Urinary tract infection associated with catheterization of urinary tract SNOMED Code(s): 074057674 Code(s): T83.511A - I/I REACT D/T INDWELLING URETHRAL CATHETER, INIT; N39.0 - URINARY TRACT INFECTION, SITE NOT SPECIFIED Status: Acute Priority: High Current Visit: Yes Qualifiers: Indwelling urinary catheter type: indwelling urethral catheter Encounter type: initial encounter Qualified Code(s): T83.511A - Infection and inflammatory reaction due to indwelling urethral catheter, initial encounter; N39.0 - Urinary tract infection, site not specified (12) Acute renal failure SNOMED Code(s): 57416716 Code(s): N17.9 - ACUTE KIDNEY FAILURE, UNSPECIFIED Status: Acute Priority: Medium Current Visit: Yes Qualifiers: Acute renal failure type: unspecified Qualified Code(s): N17.9 - Acute kidney failure, unspecified (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 SNOMED Code(s): 73210436 Code(s): Q63.1 - LOBULATED, FUSED AND HORSESHOE KIDNEY Status: Chronic Priority: Low Current Visit: Yes (14) Lung nodules SNOMED Code(s): 578202828 Code(s): R91.8 - OTHER NONSPECIFIC ABNORMAL FINDING OF LUNG FIELD Status: Chronic Priority: Medium Current Visit: Yes (15) Hematuria SNOMED Code(s): 48575177 Code(s): R31.9 - HEMATURIA, UNSPECIFIED Status: Acute Priority: Medium Current Visit: Yes Qualifiers: Hematuria type: unspecified type Qualified Code(s): R31.9 - Hematuria, unspecified (16) Bacteremia SNOMED Code(s): 7934019 Code(s): R78.81 - BACTEREMIA Status: Acute Priority: High Current Visit: Yes (17) Anemia SNOMED Code(s): 754304055 Code(s): D64.9 - ANEMIA, UNSPECIFIED Status: Acute Priority: High Current Visit: Yes Qualifiers: Anemia type: other cause Other causes of anemia: acute posthemorrhagic Qualified Code(s): D62 - Acute posthemorrhagic anemia - Problem List Review Problem List Initiated/Reviewed/Updated: Yes - My Orders Last 24 Hours: My Active Orders 05/07/20 Lunch Heart Healthy Diet [DIET] 05/07/20 21:00 Finasteride [Proscar] 5 mg PO BID Patient's Own Medication [Ptom] 0 each PO BID Patient's Own Medication [Ptom] 1 each EYEBOTH BEDTIME Rosuvastatin [Crestor] 5 mg PO BEDTIME 05/08/20 09:00 Celecoxib [CeleBREX] 200 mg PO DAILY Metoprolol Succinate [Toprol XL] 25 mg PO DAILY Tamsulosin [Flomax] 0.4 mg PO DAILY polyethylene glycoL 3350 [MiraLAX] 17 gm PO DAILY 05/09/20 05:11 CULTURE BLOOD [BC] Routine CULTURE BLOOD [BC] Routine Blood Culture x2 Reflex Set [OM.PC] ASDIRECTED 05/09/20 07:47 PROCALCITONIN [REF] Q48H 05/11/20 07:47 PROCALCITONIN [REF] Q48H - Plan Plan:: S/P Sepsis Urinary tract infection associated with catheterization of urinary tract Chronic indwelling Martinez catheter History of recent fall Confusion Horseshoe kidney Hematuria Bacteremia Hematuria Anemia Presented to ED after fall at [facility] Quite confused - ED provider notes [facility] staff states this is his baseline Head CT negative for acute abnormality Recently had chronic martinez changed in clinic - resulting in gross hematuria Black stool in ED -> On iron therapy and heme negative WBC 14.28-->13.79-->11.32 INR 1.09 Anion gap 16.0-->12.8 Lactic acid 4.8-->1.4 Hgb 8.2-->7.4-->7.6 (S/p 1 unit PRBC) UA positive with red, turbid urine, 3+ protein, 3+ ketones, 3+ Occult blood, Positive nitrite, 3+ bilirubin, 3+ leuke eserase, 10-20WBC, Many bacteria COVID-19 screen negative Plan was to discharge back to [facility] then patient became acutely dyspneic Sepsis screen: UTI, Leukocytosis, tachypnea, Lactic acid of 4.8. MEETS SEPSIS CRITERIA IV Fluid bolus of 2L given in ED Zosyn started in ED Given 1 Unit PRBCs on 05/07/20 due to anemia likely 2/2 significant hematuria and IV fluid dilution PLAN - IV fluids as ordered - Blood cultures growing 4/4 gram negative rods and 2/2 gram positive cocci in chains - Monitor BP - Continue zosyn - Add vancomycin - Hold ASA due to bleeding in urine - Continue chronic martinez - Telemetry - Urine culture showing gram negative rods - PT/OT - CM/SW consult - Lasix for fluid overload 2/2 aggressive hydration - Repeat Blood cultures tomorrow - Monitor labs Glaucoma Macular degeneration HLD (hyperlipidemia) HTN (hypertension) BPH (benign prostatic hyperplasia) TIA (transient ischemic attack) Lung nodules - Chronic Plan - Hold home BP meds as ordered due to mild hypotension - No active concerns at this time - Home medications as ordered Code status: Full code (SNF form says "CPR" will investigate this further) PCP: Dr. Graham DVT prophylaxis: SCDs - No pharmacological prophylaxis due to gross hematuria GI prophylaxis: Not indicated Social: Patient resides at [facility] Disposition: Patient will be admitted to floor with telemetry for management of sepsis 2/2 UTI and bacturemia . Likely length of stay 5 days pending repeat b lood cultures.
[2020-05-08] MEDS: Rosuvastatin 10 MG Tab PO SCH (21:38)
[2020-05-08] MEDS: Vancomycin 1.5 GM in Sodium Chloride 0.9% 500 ML IV SCH (21:38)
[2020-05-08] MEDS: BIMATOPROST EYEBOTH SCH (21:39)
[2020-05-09] MEDS: Piperacillin/Tazobactam 4.5 GM in Sodium Chloride 0.9% 100 ML IV SCH ×3 (02:05→20:13)
--- NOTE | 2020-05-09 07:42 | PCM.PN ---
- General Info Date of Service: 05/09/20 Admission Dx/Problem (Free Text): Admission Diagnosis/Problem Admission Diagnosis/Problem Sepsis Functional Status: Reports: Pain Controlled, Tolerating Diet, Ambulating, Urinating. Denies: New Symptoms - Review of Systems General: Reports: Weakness (improved ). Denies: Fever, Fatigue, Malaise, Chills HEENT: Reports: No Symptoms. Denies: Contact Lenses, Glasses, Headaches, Sore Throat Pulmonary: Reports: No Symptoms. Denies: Shortness of Breath, Pleuritic Chest Pain, Cough, Sputum, Wheezing Cardiovascular: Reports: No Symptoms. Denies: Chest Pain, Palpitations, Edema Gastrointestinal: Reports: No Symptoms. Denies: Abdominal Pain, Constipation, Diarrhea, Nausea, Vomiting Genitourinary: Reports: No Symptoms. Denies: Pain Musculoskeletal: Reports: No Symptoms Skin: Reports: No Symptoms. Denies: Cyanosis Neurological: Reports: Confusion. Denies: Difficulty Walking, Gait Disturbance Psychiatric: Reports: No Symptoms. Denies: Depression, Mood Lability, Anxiety, Agitation - Patient Data Vitals - Most Recent: Last Vital Signs Temp 97.9 F 05/09/20 04:47 Pulse 75 05/09/20 04:47 Resp 18 05/09/20 04:47 BP 133/90 05/09/20 04:47 Pulse Ox 93 L 05/09/20 07:00 Weight - Most Recent: 185 lb 3.2 oz I&O - Last 24 Hours: Intake & Output 05/08/20 05/09/20 05/09/20 22:59 06:59 14:59 Intake Total 1740 500 Output Total 1800 750 Balance -60 -250 Lab Results Last 24 Hours: Laboratory Results - last 24 hr 05/06/20 05/08/20 05/08/20 Range/Units 23:00 05:15 05:15 WBC (4.23-9.07) K/mm3 RBC (4.63-6.08) M/mm3 Hgb (13.7-17.5) gm/dl Hct (40.1-51.0) % MCV (79.0-92.2) fl MCH (25.7-32.2) pg MCHC (32.2-35.5) g/dl RDW Std Deviation (35.1-43.9) fL Plt Count (163-337) K/mm3 MPV (9.4-12.3) fl Neut % (Auto) (34.0-67.9) % Lymph % (Auto) (21.8-53.1) % [place] % (Auto) (5.3-12.2) % Eos % (Auto) (0.8-7.0) Baso % (Auto) (0.1-1.2) % Neut # (Auto) (1.78-5.38) K/mm3 Lymph # (Auto) (1.32-3.57) K/mm3 [place] # (Auto) (0.30-0.82) K/mm3 Eos # (Auto) (0.04-0.54) K/mm3 Baso # (Auto) (0.01-0.08) K/mm3 Manual Slide Review Abnormal smear Sodium 136 (136-145) mEq/L Potassium 3.8 (3.5-5.1) mEq/L Chloride 105 (98-107) mEq/L Carbon Dioxide 22 (21-32) mEq/L Anion Gap 12.8 (5-15) BUN 21 H (7-18) mg/dL Creatinine 1.1 (0.7-1.3) mg/dL Est Cr Clr Drug Dosing 42.56 mL/min Estimated GFR (MDRD) > 60 (>60) mL/min BUN/Creatinine Ratio 19.1 H (14-18) Glucose 106 (83-115) mg/dL Calcium 7.6 L (8.5-10.1) mg/dL Magnesium 1.9 (1.8-2.4) mg/dl Total Bilirubin 1.2 H (0.2-1.0) mg/dL AST 43 H (15-37) U/L ALT 15 L (16-63) U/L Alkaline Phosphatase 43 L (46-116) U/L Total Protein 5.4 L (6.4-8.2) g/dl Albumin 2.2 L (3.4-5.0) g/dl Globulin 3.2 gm/dL Albumin/Globulin Ratio 0.7 L (1-2) Procalcitonin 6.33 H (<0.10) ng/mL MRSA (PCR) 05/08/20 05/09/20 05/09/20 Range/Units 05:25 05:30 05:30 WBC 8.44 (4.23-9.07) K/mm3 RBC 3.38 L (4.63-6.08) M/mm3 Hgb 8.4 L (13.7-17.5) gm/dl Hct 27.4 L (40.1-51.0) % MCV 81.1 (79.0-92.2) fl MCH 24.9 L (25.7-32.2) pg MCHC 30.7 L (32.2-35.5) g/dl RDW Std Deviation 46.7 H (35.1-43.9) fL Plt Count 237 (163-337) K/mm3 MPV 9.8 (9.4-12.3) fl Neut % (Auto) 70.9 H (34.0-67.9) % Lymph % (Auto) 15.2 L (21.8-53.1) % [place] % (Auto) 7.0 (5.3-12.2) % Eos % (Auto) 6.4 (0.8-7.0) Baso % (Auto) 0.4 (0.1-1.2) % Neut # (Auto) 5.99 H (1.78-5.38) K/mm3 Lymph # (Auto) 1.28 L (1.32-3.57) K/mm3 [place] # (Auto) 0.59 (0.30-0.82) K/mm3 Eos # (Auto) 0.54 (0.04-0.54) K/mm3 Baso # (Auto) 0.03 (0.01-0.08) K/mm3 Manual Slide Review Sodium 137 (136-145) mEq/L Potassium 3.8 (3.5-5.1) mEq/L Chloride 104 (98-107) mEq/L Carbon Dioxide 22 (21-32) mEq/L Anion Gap 14.8 (5-15) BUN 19 H (7-18) mg/dL Creatinine 1.1 (0.7-1.3) mg/dL Est Cr Clr Drug Dosing 42.56 mL/min Estimated GFR (MDRD) > 60 (>60) mL/min BUN/Creatinine Ratio 17.3 (14-18) Glucose 94 (83-115) mg/dL Calcium 7.9 L (8.5-10.1) mg/dL Magnesium 2.1 (1.8-2.4) mg/dl Total Bilirubin 0.8 (0.2-1.0) mg/dL AST 40 H (15-37) U/L ALT 20 (16-63) U/L Alkaline Phosphatase 41 L (46-116) U/L Total Protein 6.1 L (6.4-8.2) g/dl Albumin 2.3 L (3.4-5.0) g/dl Globulin 3.8 gm/dL Albumin/Globulin Ratio 0.6 L (1-2) Procalcitonin (<0.10) ng/mL MRSA (PCR) Negative [place] Results Last 24 Hours: Microbiology 05/08/20 00:45 Streptococcus pneumoniae Antigen (M - Final Urine 05/07/20 01:00 Urine Culture - Preliminary Urine, Martinez Cath (Indwelling) Gram Negative Rods Gram Positive Cocci 05/07/20 04:50 Aerobic Blood Culture - Preliminary Blood - Venous - Lab Draw Gram Negative Rods Gram Positive Cocci In Chains Anaerobic Blood Culture - Preliminary Gram Negative Rods 05/07/20 04:35 Aerobic Blood Culture - Preliminary Blood - Venous Gram Negative Rods Anaerobic Blood Culture - Preliminary Gram Negative Rods Gram Positive Cocci In Chains Med Orders - Current: Current Medications Acetaminophen (Tylenol) 650 mg PO Q4H PRN PRN Reason: Pain (Mild 1-3)/fever Albuterol/Ipratropium (Duoneb 3.0-0.5 Mg/3 Ml) 3 ml NEB Q4H PRN PRN Reason: Shortness Of Breath/wheezing Last Admin: 05/08/20 17:49 Dose: 3 ml Documented by: Celecoxib (Celebrex) 200 mg PO DAILY [facility] Last Admin: 05/08/20 08:15 Dose: 200 mg Documented by: Finasteride (Proscar) 5 mg PO BID [facility] Last Admin: 05/08/20 21:38 Dose: 5 mg Documented by: Piperacillin Sod/Tazobactam (Sod 4.5 gm/ Sodium Chloride) 100 mls @ 25 mls/hr IV Q8H [facility] Last Admin: 05/09/20 02:05 Dose: 25 mls/hr Documented by: Vancomycin HCl 1.5 gm/ Sodium (Chloride) 500 mls @ 250 mls/hr IV Q24H [facility] Last Admin: 05/08/20 21:38 Dose: 250 mls/hr Documented by: Metoprolol Succinate (Toprol Xl) 25 mg PO DAILY [facility] Last Admin: 05/08/20 08:15 Dose: 25 mg Documented by: Bimatoprost 1 Drop (Ptom) 1 each EYEBOTH BEDTIME [facility] Last Admin: 05/08/20 21:39 Dose: Not Given Documented by: Iron [Iron] 65 Mg 0 each PO BID [facility] Last Admin: 05/08/20 21:39 Dose: Not Given Documented by: Polyethylene Glycol (Miralax) 17 gm PO DAILY [facility] Last Admin: 05/08/20 08:15 Dose: 17 gm Documented by: Rosuvastatin Calcium (Crestor) 5 mg PO BEDTIME [facility] Last Admin: 05/08/20 21:38 Dose: 5 mg Documented by: Sodium Chloride (Saline Flush) 10 ml FLUSH ONETIME PRN PRN Reason: IV FLUSH Last Admin: 05/07/20 08:26 Dose: 10 ml Documented by: Tamsulosin HCl (Flomax) 0.4 mg PO DAILY [facility] Last Admin: 05/08/20 08:15 Dose: 0.4 mg Documented by: Vancomycin HCl (Pharmacy To Dose - Vancomycin) 1 dose .XX ASDIRECTED PRN PRN Reason: PHARMACY TO DOSE VANCO Discontinued Medications Albuterol/Ipratropium (Duoneb 3.0-0.5 Mg/3 Ml) 3 ml NEB ONETIME ONE Stop: 05/07/20 04:06 Last Admin: 05/07/20 04:12 Dose: 3 ml Documented by: Cephalexin (Keflex) 500 mg PO ONETIME ONE Stop: 05/07/20 02:55 Last Admin: 05/07/20 03:25 Dose: 500 mg Documented by: Furosemide (Lasix) 40 mg IVPUSH NOW ONE Stop: 05/08/20 08:01 Last Admin: 05/08/20 08:15 Dose: 40 mg Documented by: Lactated Ringer's (Ringers, Lactated) 1,000 mls @ 999 mls/hr IV .BOLUS ONE Stop: 05/07/20 05:25 Last Admin: 05/07/20 04:31 Dose: 999 mls/hr Documented by: Piperacillin Sod/Tazobactam (Sod 4.5 gm/ Sodium Chloride) 100 mls @ 200 mls/hr IV ONETIME ONE Stop: 05/07/20 06:11 Last Admin: 05/07/20 06:01 Dose: 200 mls/hr Documented by: Lactated Ringer's (Ringers, Lactated) 1,000 mls @ 150 mls/hr IV ASDIRECTED [place] Last Admin: 05/07/20 14:09 Dose: 150 mls/hr Documented by: Lactated Ringer's (Ringers, Lactated) 1,000 mls @ 999 mls/hr IV .BOLUS ONE Stop: 05/07/20 06:46 Last Admin: 05/07/20 05:51 Dose: 999 mls/hr Documented by: Sodium Chloride (Normal Saline) 100 mls @ 75 mls/hr IV ASDIRECTED [place] Last Admin: 05/07/20 08:26 Dose: 75 mls/hr Documented by: Lactated Ringer's (Ringers, Lactated) 1,000 mls @ 100 mls/hr IV ASDIRECTED [facility] Vancomycin HCl 1 gm/ Sodium (Chloride) 250 mls @ 250 mls/hr IV Q12HR [place] Piperacillin Sod/Tazobactam (Sod 4.5 gm/ Sodium Chloride) 100 mls @ 200 mls/hr IV ONETIME ONE Stop: 05/07/20 18:44 Last Admin: 05/07/20 18:41 Dose: 200 mls/hr Documented by: Sodium Chloride (Normal Saline) 250 mls @ 100 mls/hr IV ASDIRECTED [place] Lactated Ringer's (Ringers, Lactated) 1,000 mls @ 50 mls/hr IV ASDIRECTED [facility] Last Admin: 05/08/20 00:08 Dose: 50 mls/hr Documented by: Sodium Chloride (Normal Saline) 250 mls @ 25 mls/hr IV ASDIRECTED [facility] Last Admin: 05/07/20 22:00 Dose: 25 mls/hr Documented by: Iopamidol (Isovue-370 (76%)) 100 ml IVPUSH ONETIME ONE Stop: 05/07/20 07:56 Last Admin: 05/07/20 08:26 Dose: 100 ml Documented by: - Exam Quality Assessment: Urine Catheter (chronic ), DVT Prophylaxis. No: S upplemental Oxygen General: Alert, Cooperative, No Acute Distress. No: Oriented HEENT: Pupils Equal, Pupils Reactive, Mucous Membr. Moist/[place] Neck: Supple, Trachea Midline Lungs: Clear to Auscultation, Normal Respiratory Effort Cardiovascular: Regular Rate, Regular Rhythm GI/Abdominal Exam: Normal Bowel Sounds, Soft, Non-Tender, No Distention (Male) Exam: Deferred Back Exam: Normal Inspection, Full Range of Motion Extremities: Normal Inspection, Normal Range of Motion, Non-Tender, No Pedal Edema, Normal Capillary Refill Peripheral Pulses: 2+: Radial (L), Radial (R), Dorsalis Pedis (L), Dorsalis Pedis (R) Skin: Warm, Dry Neurological: No New Focal Deficit Psy/Mental Status: Alert Sepsis Event Note - Evaluation Sepsis Screening Result: No Definite Risk - Focused Exam Vital Signs: Vital Signs Temp Pulse Resp BP Pulse Ox 05/09/20 07:00 93 L 05/09/20 04:47 97.9 F 75 18 133/90 93 L 05/09/20 00:18 98.8 F 72 22 H 129/91 H 96 05/08/20 21:36 98.8 F 75 20 137/77 95 Date Exam was Performed: 05/09/20 Time Exam was Performed: 11:47 - Problem List & Annotations (1) Sepsis SNOMED Code(s): 20569858 Code(s): A41.9 - SEPSIS, UNSPECIFIED ORGANISM Status: Acute Priority: High Current Visit: Yes Qualifiers: Sepsis type: sepsis due to unspecified organism Sepsis acute organ dysfunction status: with acute organ dysfunction Severe 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 Severe sepsis shock status: without septic shock Qualified Code(s): A41.9 - Sepsis, unspecified organism; R65.20 - Severe sepsis without septic shock; G72.81 - Critical illness myopathy (2) Chronic indwelling Martinez catheter SNOMED Code(s): 895924878 Code(s): Z97.8 - PRESENCE OF OTHER SPECIFIED DEVICES Status: Chronic Priority: High Current Visit: Yes (3) Glaucoma SNOMED Code(s): 84083619 Code(s): H40.9 - UNSPECIFIED GLAUCOMA Status: Chronic Priority: Low Current Visit: No Qualifiers: Glaucoma type: unspecified Laterality: unspecified laterality Qualified Code(s): H40.9 - Unspecified glaucoma (4) Macular degeneration SNOMED Code(s): 495049512 Code(s): H35.30 - UNSPECIFIED MACULAR DEGENERATION Status: Chronic Priority: Low Current Visit: No Qualifiers: Macular degeneration type: unspecified type Eye laterality: unspecified Qualified Code(s): H35.30 - Unspecified macular degeneration (5) HLD (hyperlipidemia) SNOMED Code(s): 65485787 Code(s): E78.5 - HYPERLIPIDEMIA, UNSPECIFIED Status: Chronic Priority: Low Current Visit: No Qualifiers: Hyperlipidemia type: unspecified Qualified Code(s): E78.5 - Hyperlipidemia, unspecified (6) HTN (hypertension) SNOMED Code(s): 31677427 Code(s): I10 - ESSENTIAL (PRIMARY) HYPERTENSION Status: Chronic Priority: Medium Current Visit: No Qualifiers: Hypertension type: unspecified Qualified Code(s): I10 - Essential (primary) hypertension (7) BPH (benign prostatic hyperplasia) SNOMED Code(s): 734240007 Code(s): N40.0 - BENIGN PROSTATIC HYPERPLASIA WITHOUT LOWER URINRY TRACT SYMP Status: Chronic Priority: Low Current Visit: No Qualifiers: Lower urinary tract symptom presence: unspecified whether lower urinary tract symptoms present Qualified Code(s): N40.0 - Benign prostatic hyperplasia without lower urinary tract symptoms (8) TIA (transient ischemic attack) SNOMED Code(s): 384503673 Code(s): G45.9 - TRANSIENT CEREBRAL ISCHEMIC ATTACK, UNSPECIFIED Status: Chronic Priority: Low Current Visit: No (9) Confusion SNOMED Code(s): 157083506 Code(s): R41.0 - DISORIENTATION, UNSPECIFIED Status: Chronic Priority: High Current Visit: Yes (10) History of recent fall SNOMED Code(s): 239815342 Code(s): Z91.81 - HISTORY OF FALLING Status: Acute Priority: High Current Visit: Yes (11) Urinary tract infection associated with catheterization of urinary tract SNOMED Code(s): 982650521 Code(s): T83.511A - I/I REACT D/T INDWELLING URETHRAL CATHETER, INIT; N39.0 - URINARY TRACT INFECTION, SITE NOT SPECIFIED Status: Acute Priority: High Current Visit: Yes Qualifiers: Indwelling urinary catheter type: indwelling urethral catheter Encounter type: initial encounter Qualified Code(s): T83.511A - Infection and inflammatory reaction due to indwelling urethral catheter, initial encounter; N39.0 - Urinary tract infection, site not specified (12) Acute renal failure SNOMED Code(s): 96549781 Code(s): N17.9 - ACUTE KIDNEY FAILURE, UNSPECIFIED Status: Acute Priority: Medium Current Visit: Yes Qualifiers: Acute renal failure type: unspecified Qualified Code(s): N17.9 - Acute kidney failure, unspecified (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 SNOMED Code(s): 82819890 Code(s): Q63.1 - LOBULATED, FUSED AND HORSESHOE KIDNEY Status: Chronic Priority: Low Current Visit: Yes (14) Lung nodules SNOMED Code(s): 371891833 Code(s): R91.8 - OTHER NONSPECIFIC ABNORMAL FINDING OF LUNG FIELD Status: Chronic Priority: Medium Current Visit: Yes (15) Hematuria SNOMED Code(s): 40604953 Code(s): R31.9 - HEMATURIA, UNSPECIFIED Status: Acute Priority: Medium Current Visit: Yes Qualifiers: Hematuria type: unspecified type Qualified Code(s): R31.9 - Hematuria, unspecified (16) Bacteremia SNOMED Code(s): 4117944 Code(s): R78.81 - BACTEREMIA Status: Acute Priority: High Current Visit: Yes (17) Anemia SNOMED Code(s): 438662248 Code(s): D64.9 - ANEMIA, UNSPECIFIED Status: Acute Priority: High Current Visit: Yes Qualifiers: Anemia type: other cause Other causes of anemia: acute posthemorrhagic Qualified Code(s): D62 - Acute posthemorrhagic anemia - Problem List Review Problem List Initiated/Reviewed/Updated: Yes - My Orders Last 24 Hours: My Active Orders 05/08/20 09:00 Celecoxib [CeleBREX] 200 mg PO DAILY Metoprolol Succinate [Toprol XL] 25 mg PO DAILY Tamsulosin [Flomax] 0.4 mg PO DAILY polyethylene glycoL 3350 [MiraLAX] 17 gm PO DAILY 05/09/20 05:11 Blood Culture x2 Reflex Set [OM.PC] ASDIRECTED 05/09/20 05:30 CBC WITH AUTO DIFF [HEME] AM CULTURE BLOOD [BC] Routine PROCALCITONIN [REF] Q48H 05/09/20 05:45 CULTURE BLOOD [BC] Routine 05/10/20 05:11 CBC WITH AUTO DIFF [HEME] AM CMP [COMPREHENSIVE METABOLIC PN,CMP] [CHEM] AM MAGNESIUM [CHEM] AM 05/11/20 05:11 CBC WITH AUTO DIFF [HEME] AM CMP [COMPREHENSIVE METABOLIC PN,CMP] [CHEM] AM MAGNESIUM [CHEM] AM 05/11/20 07:47 PROCALCITONIN [REF] Q48H 05/12/20 05:11 CBC WITH AUTO DIFF [HEME] AM CMP [COMPREHENSIVE METABOLIC PN,CMP] [CHEM] AM MAGNESIUM [CHEM] AM - Plan Plan:: S/P Sepsis Urinary tract infection associated with catheterization of urinary tract Chronic indwelling Martinez catheter History of recent fall Confusion Horseshoe kidney Hematuria Bacteremia Hematuria Anemia Presented to ED after fall at [facility] Quite confused - ED provider notes [facility] staff states this is his baseline Head CT negative for acute abnormality Recently had chronic martinez changed in clinic - resulting in gross hematuria Black stool in ED -> On iron therapy and heme negative WBC 14.28-->13.79-->11.32-->8.44 INR 1.09 Anion gap 16.0-->12.8-->14.8 Lactic acid 4.8-->1.4 Hgb 8.2-->7.4-->7.9 (S/p 1 unit PRBC) -->8.4 UA positive with red, turbid urine, 3+ protein, 3+ ketones, 3+ Occult blood, Positive nitrite, 3+ bilirubin, 3+ leuke eserase, 10-20WBC, Many bacteria COVID-19 screen negative Plan was to discharge back to [facility] then patient became acutely dyspneic Sepsis screen: UTI, Leukocytosis, tachypnea, Lactic acid of 4.8. MEETS SEPSIS CRITERIA IV Fluid bolus of 2L given in ED Zosyn started in ED Given 1 Unit PRBCs on 05/07/20 due to anemia - likely 2/2 significant hematuria and IV fluid dilution PLAN - IV fluids as ordered - Blood cultures growing 4/4 gram negative rods and 2/2 gram positive cocci in chains - Monitor BP - Continue zosyn - Add vancomycin - Hold ASA due to bleeding in urine - Continue chronic martinez - Telemetry - Urine culture showing gram negative rods - PT/OT - CM/SW consult - Lasix for fluid overload 2/2 aggressive hydration - Repeat Blood cultures tomorrow - Monitor labs Glaucoma Macular degeneration HLD (hyperlipidemia) HTN (hypertension) BPH (benign prostatic hyperplasia) TIA (transient ischemic attack) Lung nodules - Chronic Plan - Hold home BP meds as ordered due to mild hypotension - No active concerns at this time - Home medications as ordered Code status: Full code PCP: Dr. Graham DVT prophylaxis: SCDs - No pharmacological prophylaxis due to gross hematuria GI prophylaxis: Not indicated Social: Patient resides at [facility] Disposition: Patient will be admitted to floor with telemetry for management of sepsis 2/2 UTI and bacteremia . Likely length of stay 5 days pending repeat blood cultures. LOS >96 HRS pending repeat blood cultures, SNF return
[2020-05-09] MEDS: Finasteride 5 MG Tab PO SCH ×2 (10:00→20:36)
[2020-05-09] MEDS: Metoprolol Succinate 25 MG Tab.ER PO SCH (12:14)
[2020-05-09] MEDS: Celecoxib 100 MG Cap PO SCH (12:15)
[2020-05-09] MEDS: Tamsulosin 0.4 MG Cap.ER PO SCH (12:15)
[2020-05-09] MEDS: IRON 65 MG PO SCH ×2 (12:16→20:36)
[2020-05-09] MEDS: Polyethylene Glycol 3350 Powder 17 GM Packet PO SCH (12:16)
[2020-05-09] MEDS ORDERED: Vancomycin 1 GM, Vancomycin 500 MG in Sodium Chloride 0.9% 500 ML IV SCH (20:00)
[2020-05-09] MEDS: BIMATOPROST EYEBOTH SCH (20:36)
[2020-05-09] MEDS: Rosuvastatin 10 MG Tab PO SCH (20:36)
[2020-05-10] MEDS ORDERED: Vancomycin 1 GM, Vancomycin 500 MG in Sodium Chloride 0.9% 500 ML IV SCH ×3
[2020-05-10] MEDS: Piperacillin/Tazobactam 4.5 GM in Sodium Chloride 0.9% 100 ML IV SCH ×3 (02:47→18:51)
[2020-05-10] MEDS: Metoprolol Succinate 25 MG Tab.ER PO SCH (08:12)
[2020-05-10] MEDS: Tamsulosin 0.4 MG Cap.ER PO SCH (08:12)
[2020-05-10] MEDS: Celecoxib 100 MG Cap PO SCH (08:12)
[2020-05-10] MEDS: Finasteride 5 MG Tab PO SCH ×2 (08:12→22:11)
[2020-05-10] MEDS: Polyethylene Glycol 3350 Powder 17 GM Packet PO SCH (08:12)
[2020-05-10] MEDS: IRON 65 MG PO SCH ×2 (08:14→22:12)
--- NOTE | 2020-05-10 09:29 | PCM.PN ---
- General Info Date of Service: 05/10/20 Admission Dx/Problem (Free Text): Admission Diagnosis/Problem Admission Diagnosis/Problem Sepsis - Patient Data Vitals - Most Recent: Last Vital Signs Temp 97.9 F 05/10/20 07:43 Pulse 71 05/10/20 08:12 Resp 20 05/10/20 07:43 BP 146/67 H 05/10/20 08:12 Pulse Ox 95 05/10/20 07:43 Weight - Most Recent: 179 lb I&O - Last 24 Hours: Intake & Output 05/09/20 05/10/20 05/10/20 22:59 06:59 14:59 Intake Total 500 900 Output Total 1000 1600 Balance -500 -700 Lab Results Last 24 Hours: Laboratory Results - last 24 hr 05/09/20 05/10/20 05/10/20 Range/Units 05:30 05:05 05:05 WBC 7.02 (4.23-9.07) K/mm3 RBC 3.34 L (4.63-6.08) M/mm3 Hgb 8.2 L (13.7-17.5) gm/dl Hct 27.4 L (40.1-51.0) % MCV 82.0 (79.0-92.2) fl MCH 24.6 L (25.7-32.2) pg MCHC 29.9 L (32.2-35.5) g/dl RDW Std Deviation 48.9 H (35.1-43.9) fL Plt Count 253 (163-337) K/mm3 MPV 9.6 (9.4-12.3) fl Neut % (Auto) 58.5 (34.0-67.9) % Lymph % (Auto) 22.6 (21.8-53.1) % [place] % (Auto) 8.5 (5.3-12.2) % Eos % (Auto) 10.0 H (0.8-7.0) Baso % (Auto) 0.3 (0.1-1.2) % Neut # (Auto) 4.10 (1.78-5.38) K/mm3 Lymph # (Auto) 1.59 (1.32-3.57) K/mm3 [place] # (Auto) 0.60 (0.30-0.82) K/mm3 Eos # (Auto) 0.70 H (0.04-0.54) K/mm3 Baso # (Auto) 0.02 (0.01-0.08) K/mm3 Manual Slide Review Abnormal smear Sodium 137 (136-145) mEq/L Potassium 4.1 (3.5-5.1) mEq/L Chloride 105 (98-107) mEq/L Carbon Dioxide 26 (21-32) mEq/L Anion Gap 10.1 (5-15) BUN 14 (7-18) mg/dL Creatinine 1.0 (0.7-1.3) mg/dL Est Cr Clr Drug Dosing 46.82 mL/min Estimated GFR (MDRD) > 60 (>60) mL/min BUN/Creatinine Ratio 14.0 (14-18) Glucose 88 (83-115) mg/dL Calcium 7.9 L (8.5-10.1) mg/dL Magnesium 2.1 (1.8-2.4) mg/dl Total Bilirubin 0.5 (0.2-1.0) mg/dL AST 35 (15-37) U/L ALT 20 (16-63) U/L Alkaline Phosphatase 38 L (46-116) U/L Total Protein 5.8 L (6.4-8.2) g/dl Albumin 2.1 L (3.4-5.0) g/dl Globulin 3.7 gm/dL Albumin/Globulin Ratio 0.6 L (1-2) Procalcitonin 7.19 H (<0.10) ng/mL [place] Results Last 24 Hours: Microbiology 05/09/20 05:30 Aerobic Blood Culture - Preliminary Blood - Venous NO GROWTH AFTER 1 DAY Anaerobic Blood Culture - Preliminary NO GROWTH AFTER 1 DAY 05/09/20 05:45 Aerobic Blood Culture - Preliminary Blood - Venous - Lab Draw NO GROWTH AFTER 1 DAY Anaerobic Blood Culture - Preliminary NO GROWTH AFTER 1 DAY 05/07/20 04:50 Aerobic Blood Culture - Final Blood - Venous - Lab Draw Klebsiella Oxytoca Enterococcus Faecalis Anaerobic Blood Culture - Preliminary Klebsiella Oxytoca 05/07/20 04:35 Aerobic Blood Culture - Final Blood - Venous Klebsiella Oxytoca Anaerobic Blood Culture - Preliminary Klebsiella Oxytoca Enterococcus Faecalis 05/07/20 01:00 Urine Culture - Final Urine, Martinez Cath (Indwelling) Klebsiella Oxytoca Pseudomonas Aeruginosa Enterococcus Faecalis Med Orders - Current: Current Medications Acetaminophen (Tylenol) 650 mg PO Q4H PRN PRN Reason: Pain (Mild 1-3)/fever Albuterol/Ipratropium (Duoneb 3.0-0.5 Mg/3 Ml) 3 ml NEB Q4H PRN PRN Reason: Shortness Of Breath/wheezing Last Admin: 05/08/20 17:49 Dose: 3 ml Documented by: Celecoxib (Celebrex) 200 mg PO DAILY [facility] Last Admin: 05/10/20 08:12 Dose: 200 mg Documented by: Finasteride (Proscar) 5 mg PO BID [facility] Last Admin: 05/10/20 08:12 Dose: 5 mg Documented by: Piperacillin Sod/Tazobactam (Sod 4.5 gm/ Sodium Chloride) 100 mls @ 25 mls/hr IV Q8H [facility] Last Admin: 05/10/20 02:47 Dose: 25 mls/hr Documented by: Metoprolol Succinate (Toprol Xl) 25 mg PO DAILY [facility] Last Admin: 05/10/20 08:12 Dose: 25 mg Documented by: Bimatoprost 1 Drop (Ptom) 1 each EYEBOTH BEDTIME [facility] Last Admin: 05/09/20 20:36 Dose: Not Given Documented by: Iron [Iron] 65 Mg 0 each PO BID [facility] Last Admin: 05/10/20 08:14 Dose: Not Given Documented by: Polyethylene Glycol (Miralax) 17 gm PO DAILY [facility] Last Admin: 05/10/20 08:12 Dose: 17 gm Documented by: Rosuvastatin Calcium (Crestor) 5 mg PO BEDTIME [facility] Last Admin: 05/09/20 20:36 Dose: 5 mg Documented by: Sodium Chloride (Saline Flush) 10 ml FLUSH ONETIME PRN PRN Reason: IV FLUSH Last Admin: 05/07/20 08:26 Dose: 10 ml Documented by: Tamsulosin HCl (Flomax) 0.4 mg PO DAILY [facility] Last Admin: 05/10/20 08:12 Dose: 0.4 mg Documented by: Discontinued Medications Albuterol/Ipratropium (Duoneb 3.0-0.5 Mg/3 Ml) 3 ml NEB ONETIME ONE Stop: 05/07/20 04:06 Last Admin: 05/07/20 04:12 Dose: 3 ml Documented by: Cephalexin (Keflex) 500 mg PO ONETIME ONE Stop: 05/07/20 02:55 Last Admin: 05/07/20 03:25 Dose: 500 mg Documented by: Furosemide (Lasix) 40 mg IVPUSH NOW ONE Stop: 05/08/20 08:01 Last Admin: 05/08/20 08:15 Dose: 40 mg Documented by: Lactated Ringer's (Ringers, Lactated) 1,000 mls @ 999 mls/hr IV .BOLUS ONE Stop: 05/07/20 05:25 Last Admin: 05/07/20 04:31 Dose: 999 mls/hr Documented by: Piperacillin Sod/Tazobactam (Sod 4.5 gm/ Sodium Chloride) 100 mls @ 200 mls/hr IV ONETIME ONE Stop: 05/07/20 06:11 Last Admin: 05/07/20 06:01 Dose: 200 mls/hr Documented by: Lactated Ringer's (Ringers, Lactated) 1,000 mls @ 150 mls/hr IV ASDIRECTED [facility] Last Admin: 05/07/20 14:09 Dose: 150 mls/hr Documented by: Lactated Ringer's (Ringers, Lactated) 1,000 mls @ 999 mls/hr IV .BOLUS ONE Stop: 05/07/20 06:46 Last Admin: 05/07/20 05:51 Dose: 999 mls/hr Documented by: Sodium Chloride (Normal Saline) 100 mls @ 75 mls/hr IV ASDIRECTED [facility] Last Admin: 05/07/20 08:26 Dose: 75 mls/hr Documented by: Lactated Ringer's (Ringers, Lactated) 1,000 mls @ 100 mls/hr IV ASDIRECTED [facility] Vancomycin HCl 1 gm/ Sodium (Chloride) 250 mls @ 250 mls/hr IV Q12HR [facility] Piperacillin Sod/Tazobactam (Sod 4.5 gm/ Sodium Chloride) 100 mls @ 200 mls/hr IV ONETIME ONE Stop: 05/07/20 18:44 Last Admin: 05/07/20 18:41 Dose: 200 mls/hr Documented by: Vancomycin HCl 1.5 gm/ Sodium (Chloride) 500 mls @ 250 mls/hr IV Q24H [facility] Last Admin: 05/08/20 21:38 Dose: 250 mls/hr Documented by: Sodium Chloride (Normal Saline) 250 mls @ 100 mls/hr IV ASDIRECTED [facility] Lactated Ringer's (Ringers, Lactated) 1,000 mls @ 50 mls/hr IV ASDIRECTED [facility] Last Admin: 05/08/20 00:08 Dose: 50 mls/hr Documented by: Sodium Chloride (Normal Saline) 250 mls @ 25 mls/hr IV ASDIRECTED [facility] Last Admin: 05/07/20 22:00 Dose: 25 mls/hr Documented by: Vancomycin HCl 1 gm/Vancomycin HCl 500 mg/ Sodium Chloride 500 mls @ 250 mls/hr IV Q24H [facility] Last Admin: 05/09/20 20:14 Dose: 250 mls/hr Documented by: Vancomycin HCl 1 gm/Vancomycin HCl 500 mg/ Sodium Chloride 500 mls @ 250 mls/hr IV Q24H [facility] Last Admin: 05/10/20 00:23 Dose: 250 mls/hr Documented by: Iopamidol (Isovue-370 (76%)) 100 ml IVPUSH ONETIME ONE Stop: 05/07/20 07:56 Last Admin: 05/07/20 08:26 Dose: 100 ml Documented by: Vancomycin HCl (Pharmacy To Dose - Vancomycin) 1 dose .XX ASDIRECTED PRN PRN Reason: PHARMACY TO DOSE VANCO Sepsis Event Note - Evaluation Sepsis Screening Result: No Definite Risk - Focused Exam Vital Signs: Vital Signs Temp Pulse Resp BP Pulse Ox 05/10/20 08:12 71 146/67 H 05/10/20 07:43 97.9 F 71 20 146/87 H 95 05/10/20 06:43 94 L 05/10/20 03:02 98.1 F 60 20 150/87 H 95 05/10/20 00:44 97.9 F 77 20 134/72 95 Date Exam was Performed: 05/10/20 Time Exam was Performed: 14:02 - Problem List & Annotations (1) Sepsis SNOMED Code(s): 67016160 Code(s): A41.9 - SEPSIS, UNSPECIFIED ORGANISM Status: Acute Priority: High Current Visit: Yes Qualifiers: Sepsis type: sepsis due to unspecified organism Sepsis acute organ dysfunction status: with acute organ dysfunction Severe 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 Severe sepsis shock status: without septic shock Qualified Code(s): A41.9 - Sepsis, unspecified organism; R65.20 - Severe sepsis without septic shock; G72.81 - Critical illness myopathy (2) Chronic indwelling Martinez catheter SNOMED Code(s): 998707551 Code(s): Z97.8 - PRESENCE OF OTHER SPECIFIED DEVICES Status: Chronic Priority: High Current Visit: Yes (3) Glaucoma SNOMED Code(s): 44405814 Code(s): H40.9 - UNSPECIFIED GLAUCOMA Status: Chronic Priority: Low Current Visit: No Qualifiers: Glaucoma type: unspecified Laterality: unspecified laterality Qualified Code(s): H40.9 - Unspecified glaucoma (4) Macular degeneration SNOMED Code(s): 031714550 Code(s): H35.30 - UNSPECIFIED MACULAR DEGENERATION Status: Chronic Priority: Low Current Visit: No Qualifiers: Macular degeneration type: unspecified type Eye laterality: unspecified Qualified Code(s): H35.30 - Unspecified macular degeneration (5) HLD (hyperlipidemia) SNOMED Code(s): 09764266 Code(s): E78.5 - HYPERLIPIDEMIA, UNSPECIFIED Status: Chronic Priority: Low Current Visit: No Qualifiers: Hyperlipidemia type: unspecified Qualified Code(s): E78.5 - Hyperlipidemia, unspecified (6) HTN (hypertension) SNOMED Code(s): 19821677 Code(s): I10 - ESSENTIAL (PRIMARY) HYPERTENSION Status: Chronic Priority: Medium Current Visit: No Qualifiers: Hypertension type: unspecified Qualified Code(s): I10 - Essential (primary) hypertension (7) BPH (benign prostatic hyperplasia) SNOMED Code(s): 408390772 Code(s): N40.0 - BENIGN PROSTATIC HYPERPLASIA WITHOUT LOWER URINRY TRACT SYMP Status: Chronic Priority: Low Current Visit: No Qualifiers: Lower urinary tract symptom presence: unspecified whether lower urinary tract symptoms present Qualified Code(s): N40.0 - Benign prostatic hyperplasia without lower urinary tract symptoms (8) TIA (transient ischemic attack) SNOMED Code(s): 627217655 Code(s): G45.9 - TRANSIENT CEREBRAL ISCHEMIC ATTACK, UNSPECIFIED Status: Chronic Priority: Low Current Visit: No (9) Confusion SNOMED Code(s): 528636912 Code(s): R41.0 - DISORIENTATION, UNSPECIFIED Status: Chronic Priority: High Current Visit: Yes (10) History of recent fall SNOMED Code(s): 295451681 Code(s): Z91.81 - HISTORY OF FALLING Status: Acute Priority: High Current Visit: Yes (11) Urinary tract infection associated with catheterization of urinary tract SNOMED Code(s): 128581966 Code(s): T83.511A - I/I REACT D/T INDWELLING URETHRAL CATHETER, INIT; N39.0 - URINARY TRACT INFECTION, SITE NOT SPECIFIED Status: Acute Priority: High Current Visit: Yes Qualifiers: Indwelling urinary catheter type: indwelling urethral catheter Encounter type: initial encounter Qualified Code(s): T83.511A - Infection and inflammatory reaction due to indwelling urethral catheter, initial encounter; N39.0 - Urinary tract infection, site not specified (12) Acute renal failure SNOMED Code(s): 53650866 Code(s): N17.9 - ACUTE KIDNEY FAILURE, UNSPECIFIED Status: Acute Priority: Medium Current Visit: Yes Qualifiers: Acute renal failure type: unspecified Qualified Code(s): N17.9 - Acute kidney failure, unspecified (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 SNOMED Code(s): 21575174 Code(s): Q63.1 - LOBULATED, FUSED AND HORSESHOE KIDNEY Status: Chronic Priority: Low Current Visit: Yes (14) Lung nodules SNOMED Code(s): 709951386 Code(s): R91.8 - OTHER NONSPECIFIC ABNORMAL FINDING OF LUNG FIELD Status: Chronic Priority: Medium Current Visit: Yes (15) Hematuria SNOMED Code(s): 65605323 Code(s): R31.9 - HEMATURIA, UNSPECIFIED Status: Acute Priority: Medium Current Visit: Yes Qualifiers: Hematuria type: unspecified type Qualified Code(s): R31.9 - Hematuria, unspecified (16) Bacteremia SNOMED Code(s): 0329120 Code(s): R78.81 - BACTEREMIA Status: Acute Priority: High Current Visit: Yes (17) Anemia SNOMED Code(s): 962970803 Code(s): D64.9 - ANEMIA, UNSPECIFIED Status: Acute Priority: High Current Visit: Yes Qualifiers: Anemia type: other cause Other causes of anemia: acute posthemorrhagic Qualified Code(s): D62 - Acute posthemorrhagic anemia - Problem List Review Problem List Initiated/Reviewed/Updated: Yes - My Orders Last 24 Hours: My Active Orders 05/11/20 05:11 CBC WITH AUTO DIFF [HEME] AM CMP [COMPREHENSIVE METABOLIC PN,CMP] [CHEM] AM MAGNESIUM [CHEM] AM PROCALCITONIN [REF] Routine 05/12/20 05:11 CBC WITH AUTO DIFF [HEME] AM CMP [COMPREHENSIVE METABOLIC PN,CMP] [CHEM] AM MAGNESIUM [CHEM] AM 05/12/20 08:00 CORONAVIRUS COVID-19 PCR PHL Routine - Plan Plan:: S/P Sepsis Urinary tract infection associated with catheterization of urinary tract Chronic indwelling Martinez catheter History of recent fall Confusion Horseshoe kidney Hematuria Bacteremia Hematuria Anemia Presented to ED after fall at [facility] Quite confused - ED provider notes [facility] staff states this is his baseline Head CT negative for acute abnormality Recently had chronic martinez changed in clinic - resulting in gross hematuria Black stool in ED -> On iron therapy and heme negative WBC 14.28-->13.79-->11.32-->8.44-->7.02 INR 1.09 Anion gap 16.0-->12.8-->14.8-->10.1 Lactic acid 4.8-->1.4 Hgb 8.2-->7.4-->7.9 (S/p 1 unit PRBC) -->8.4 UA positive with red, turbid urine, 3+ protein, 3+ ketones, 3+ Occult blood, Positive nitrite, 3+ bilirubin, 3+ leuke eserase, 10-20WBC, Many bacteria COVID-19 screen negative Plan was to discharge back to [facility] then patient became acutely dyspneic Sepsis screen: UTI, Leukocytosis, tachypnea, Lactic acid of 4.8. MEETS SEPSIS CRITERIA IV Fluid bolus of 2L given in ED Zosyn started in ED Given 1 Unit PRBCs on 05/07/20 due to anemia - likely 2/2 significant hematuria and IV fluid dilution Echo obtained on 05/08/20 1. LVEF, by visual estimation, is 60-65%. 2. Impaired relaxation (Grade 1) pattern of LV diastolic filling. 3. Mild aortic valve regurgitation. PLAN - IV fluids as ordered - Blood cultures growing Klebsiella oxytoca and Enterococcus Faecalis - Monitor BP - Continue zosyn -> awaiting further sensitivities to determine PO option - discontinue vancomycin - Hold ASA due to bleeding in urine - Continue chronic martinez - Telemetry - Urine culture showing Klebsiella oxytoca, pseudomonas and Enterococcus Faecalis - PT/OT - CM/SW consult - Repeat Blood cultures negative thus far - Monitor labs Glaucoma Macular degeneration HLD (hyperlipidemia) HTN (hypertension) BPH (benign prostatic hyperplasia) TIA (transient ischemic attack) Lung nodules - Chronic Plan - Hold home BP meds as ordered due to mild hypotension - No active concerns at this time - Home medications as ordered Code status: Full code PCP: Dr. Graham DVT prophylaxis: SCDs - No pharmacological prophylaxis due to gross hematuria GI prophylaxis: Not indicated Social: Patient resides at [facility] Disposition: Patient will be admitted to floor with telemetry for management of sepsis 2/2 UTI and bacteremia. LOS >96 HRS pending repeat blood cultures, SNF return
--- NOTE | 2020-05-10 10:46 | PCM.SN.2 ---
- Free Text/Narrative Note: length of stay > 96 hours sec to uti and sepsis boh
[2020-05-10] MEDS ORDERED: Sodium Chloride 0.9% 1,000 ML IV SCH (11:15)
[2020-05-10] MEDS: Rosuvastatin 10 MG Tab PO SCH (22:11)
[2020-05-10] MEDS: BIMATOPROST EYEBOTH SCH (22:12)
[2020-05-11] MEDS: Piperacillin/Tazobactam 4.5 GM in Sodium Chloride 0.9% 100 ML IV SCH ×3 (02:58→18:23)
[2020-05-11] MEDS: Finasteride 5 MG Tab PO SCH ×2 (09:34→20:26)
[2020-05-11] MEDS: Tamsulosin 0.4 MG Cap.ER PO SCH (09:34)
[2020-05-11] MEDS: Metoprolol Succinate 25 MG Tab.ER PO SCH (09:34)
[2020-05-11] MEDS: IRON 65 MG PO SCH ×2 (09:35→20:27)
[2020-05-11] MEDS: Celecoxib 100 MG Cap PO SCH (09:35)
[2020-05-11] MEDS: Polyethylene Glycol 3350 Powder 17 GM Packet PO SCH (09:36)
--- NOTE | 2020-05-11 12:28 | PCM.PN ---
- General Info Date of Service: 05/11/20 Admission Dx/Problem (Free Text): Admission Diagnosis/Problem Admission Diagnosis/Problem Sepsis Functional Status: Reports: Pain Controlled, Tolerating Diet, Ambulating, Urinating. Denies: New Symptoms - Review of Systems General: Reports: No Symptoms. Denies: Fever, Weakness, Fatigue, Malaise, Chills HEENT: Reports: No Symptoms. Denies: Headaches, Sore Throat Pulmonary: Reports: No Symptoms. Denies: Shortness of Breath, Cough, Sputum, Wheezing Cardiovascular: Reports: No Symptoms. Denies: Chest Pain, Palpitations, Dyspnea on Exertion, Edema Gastrointestinal: Reports: No Symptoms. Denies: Abdominal Pain, Constipation, Diarrhea, Nausea, Vomiting Genitourinary: Reports: No Symptoms. Denies: Pain Musculoskeletal: Reports: No Symptoms Skin: Reports: No Symptoms. Denies: Cyanosis Neurological: Reports: Confusion, Difficulty Walking (mild ), Gait Disturbance (mild ). Denies: Weakness Psychiatric: Reports: No Symptoms - Patient Data Vitals - Most Recent: Last Vital Signs Temp 97.7 F 05/11/20 08:05 Pulse 68 05/11/20 09:34 Resp 20 05/11/20 08:05 BP 150/81 H 05/11/20 09:34 Pulse Ox 96 05/11/20 08:05 Weight - Most Recent: 178 lb 3.2 oz I&O - Last 24 Hours: Intake & Output 05/10/20 05/11/20 05/11/20 22:59 06:59 14:59 Intake Total 1660 900 180 Output Total 1100 1475 Balance 560 -575 180 Lab Results Last 24 Hours: Laboratory Results - last 24 hr 05/11/20 05/11/20 Range/Units 06:15 06:15 WBC 7.66 (4.23-9.07) K/mm3 RBC 3.38 L (4.63-6.08) M/mm3 Hgb 8.2 L (13.7-17.5) gm/dl Hct 27.5 L (40.1-51.0) % MCV 81.4 (79.0-92.2) fl MCH 24.3 L (25.7-32.2) pg MCHC 29.8 L (32.2-35.5) g/dl RDW Std Deviation 48.5 H (35.1-43.9) fL Plt Count 255 (163-337) K/mm3 MPV 9.3 L (9.4-12.3) fl Neut % (Auto) 49.1 (34.0-67.9) % Lymph % (Auto) 29.6 (21.8-53.1) % Campbell % (Auto) 10.2 (5.3-12.2) % Eos % (Auto) 10.4 H (0.8-7.0) Baso % (Auto) 0.4 (0.1-1.2) % Neut # (Auto) 3.76 (1.78-5.38) K/mm3 Lymph # (Auto) 2.27 (1.32-3.57) K/mm3 Campbell # (Auto) 0.78 (0.30-0.82) K/mm3 Eos # (Auto) 0.80 H (0.04-0.54) K/mm3 Baso # (Auto) 0.03 (0.01-0.08) K/mm3 Manual Slide Review Abnormal smear Sodium 135 L (136-145) mEq/L Potassium 4.1 (3.5-5.1) mEq/L Chloride 104 (98-107) mEq/L Carbon Dioxide 23 (21-32) mEq/L Anion Gap 12.1 (5-15) BUN 13 (7-18) mg/dL Creatinine 1.0 (0.7-1.3) mg/dL Est Cr Clr Drug Dosing 46.82 mL/min Estimated GFR (MDRD) > 60 (>60) mL/min BUN/Creatinine Ratio 13.0 L (14-18) Glucose 87 (83-115) mg/dL Calcium 8.2 L (8.5-10.1) mg/dL Magnesium 2.0 (1.8-2.4) mg/dl Total Bilirubin 0.4 (0.2-1.0) mg/dL AST 26 (15-37) U/L ALT 20 (16-63) U/L Alkaline Phosphatase 38 L (46-116) U/L Total Protein 5.8 L (6.4-8.2) g/dl Albumin 2.1 L (3.4-5.0) g/dl Globulin 3.7 gm/dL Albumin/Globulin Ratio 0.6 L (1-2) Yury Results Last 24 Hours: Microbiology 05/07/20 01:00 Urine Culture - Final Urine, Martinez Cath (Indwelling) Klebsiella Oxytoca Pseudomonas Aeruginosa Enterococcus Faecalis 05/07/20 04:35 Aerobic Blood Culture - Final Blood - Venous Klebsiella Oxytoca Anaerobic Blood Culture - Final Klebsiella Oxytoca Enterococcus Faecalis 05/09/20 05:30 Aerobic Blood Culture - Preliminary Blood - Venous NO GROWTH AFTER 2 DAYS Anaerobic Blood Culture - Preliminary NO GROWTH AFTER 2 DAYS 05/09/20 05:45 Aerobic Blood Culture - Preliminary Blood - Venous - Lab Draw NO GROWTH AFTER 2 DAYS Anaerobic Blood Culture - Preliminary NO GROWTH AFTER 2 DAYS 05/07/20 04:50 Aerobic Blood Culture - Final Blood - Venous - Lab Draw Klebsiella Oxytoca Enterococcus Faecalis Anaerobic Blood Culture - Final Klebsiella Oxytoca Med Orders - Current: Current Medications Acetaminophen (Tylenol) 650 mg PO Q4H PRN PRN Reason: Pain (Mild 1-3)/fever Albuterol/Ipratropium (Duoneb 3.0-0.5 Mg/3 Ml) 3 ml NEB Q4H PRN PRN Reason: Shortness Of Breath/wheezing Last Admin: 05/08/20 17:49 Dose: 3 ml Documented by: Celecoxib (Celebrex) 200 mg PO DAILY [facility] Last Admin: 05/11/20 09:35 Dose: 200 mg Documented by: Finasteride (Proscar) 5 mg PO BID [facility] Last Admin: 05/11/20 09:34 Dose: 5 mg Documented by: Piperacillin Sod/Tazobactam (Sod 4.5 gm/ Sodium Chloride) 100 mls @ 25 mls/hr IV Q8H [facility] Last Admin: 05/11/20 09:38 Dose: 25 mls/hr Documented by: Sodium Chloride (Normal Saline) 1,000 mls @ 50 mls/hr IV ASDIRECTED [facility] Last Admin: 05/10/20 11:24 Dose: 50 mls/hr Documented by: Metoprolol Succinate (Toprol Xl) 25 mg PO DAILY [facility] Last Admin: 05/11/20 09:34 Dose: 25 mg Documented by: Bimatoprost 1 Drop (Ptom) 1 each EYEBOTH BEDTIME [facility] Last Admin: 05/10/20 22:12 Dose: Not Given Documented by: Iron [Iron] 65 Mg 0 each PO BID [facility] Last Admin: 05/11/20 09:35 Dose: Not Given Documented by: Polyethylene Glycol (Miralax) 17 gm PO DAILY [facility] Last Admin: 05/11/20 09:36 Dose: 17 gm Documented by: Rosuvastatin Calcium (Crestor) 5 mg PO BEDTIME [facility] Last Admin: 05/10/20 22:11 Dose: 5 mg Documented by: Sodium Chloride (Saline Flush) 10 ml FLUSH ONETIME PRN PRN Reason: IV FLUSH Last Admin: 05/07/20 08:26 Dose: 10 ml Documented by: Tamsulosin HCl (Flomax) 0.4 mg PO DAILY [facility] Last Admin: 05/11/20 09:34 Dose: 0.4 mg Documented by: Discontinued Medications Albuterol/Ipratropium (Duoneb 3.0-0.5 Mg/3 Ml) 3 ml NEB ONETIME ONE Stop: 05/07/20 04:06 Last Admin: 05/07/20 04:12 Dose: 3 ml Documented by: Cephalexin (Keflex) 500 mg PO ONETIME ONE Stop: 05/07/20 02:55 Last Admin: 05/07/20 03:25 Dose: 500 mg Documented by: Furosemide (Lasix) 40 mg IVPUSH NOW ONE Stop: 05/08/20 08:01 Last Admin: 05/08/20 08:15 Dose: 40 mg Documented by: Lactated Ringer's (Ringers, Lactated) 1,000 mls @ 999 mls/hr IV .BOLUS ONE Stop: 05/07/20 05:25 Last Admin: 05/07/20 04:31 Dose: 999 mls/hr Documented by: Piperacillin Sod/Tazobactam (Sod 4.5 gm/ Sodium Chloride) 100 mls @ 200 mls/hr IV ONETIME ONE Stop: 05/07/20 06:11 Last Admin: 05/07/20 06:01 Dose: 200 mls/hr Documented by: Lactated Ringer's (Ringers, Lactated) 1,000 mls @ 150 mls/hr IV ASDIRECTED [facility] Last Admin: 05/07/20 14:09 Dose: 150 mls/hr Documented by: Lactated Ringer's (Ringers, Lactated) 1,000 mls @ 999 mls/hr IV .BOLUS ONE Stop: 05/07/20 06:46 Last Admin: 05/07/20 05:51 Dose: 999 mls/hr Documented by: Sodium Chloride (Normal Saline) 100 mls @ 75 mls/hr IV ASDIRECTED [facility] Last Admin: 05/07/20 08:26 Dose: 75 mls/hr Documented by: Lactated Ringer's (Ringers, Lactated) 1,000 mls @ 100 mls/hr IV ASDIRECTED [facility] Vancomycin HCl 1 gm/ Sodium (Chloride) 250 mls @ 250 mls/hr IV Q12HR [facility] Piperacillin Sod/Tazobactam (Sod 4.5 gm/ Sodium Chloride) 100 mls @ 200 mls/hr IV ONETIME ONE Stop: 05/07/20 18:44 Last Admin: 05/07/20 18:41 Dose: 200 mls/hr Documented by: Vancomycin HCl 1.5 gm/ Sodium (Chloride) 500 mls @ 250 mls/hr IV Q24H [facility] Last Admin: 05/08/20 21:38 Dose: 250 mls/hr Documented by: Sodium Chloride (Normal Saline) 250 mls @ 100 mls/hr IV ASDIRECTED [facility] Lactated Ringer's (Ringers, Lactated) 1,000 mls @ 50 mls/hr IV ASDIRECTED [facility] Last Admin: 05/08/20 00:08 Dose: 50 mls/hr Documented by: Sodium Chloride (Normal Saline) 250 mls @ 25 mls/hr IV ASDIRECTED [facility] Last Admin: 05/07/20 22:00 Dose: 25 mls/hr Documented by: Vancomycin HCl 1 gm/Vancomycin HCl 500 mg/ Sodium Chloride 500 mls @ 250 mls/hr IV Q24H [facility] Last Admin: 05/09/20 20:14 Dose: 250 mls/hr Documented by: Vancomycin HCl 1 gm/Vancomycin HCl 500 mg/ Sodium Chloride 500 mls @ 250 mls/hr IV Q24H [facility] Last Admin: 05/10/20 00:23 Dose: 250 mls/hr Documented by: Iopamidol (Isovue-370 (76%)) 100 ml IVPUSH ONETIME ONE Stop: 05/07/20 07:56 Last Admin: 05/07/20 08:26 Dose: 100 ml Documented by: Vancomycin HCl (Pharmacy To Dose - Vancomycin) 1 dose .XX ASDIRECTED PRN PRN Reason: PHARMACY TO DOSE VANCO - Exam Quality Assessment: DVT Prophylaxis. No: Supplemental Oxygen, Urine Catheter General: Alert, Cooperative, No Acute Distress HEENT: Pupils Equal, Pupils Reactive, Mucous Membr. Moist/[place] Neck: Supple, Trachea Midline Lungs: Clear to Auscultation, Normal Respiratory Effort Cardiovascular: Regular Rate, Regular Rhythm GI/Abdominal Exam: Normal Bowel Sounds, Soft, Non-Tender, No Distention (Male) Exam: Deferred Back Exam: Normal Inspection, Full Range of Motion Extremities: Normal Inspection, Normal Range of Motion, Non-Tender, No Pedal Edema, Normal Capillary Refill Skin: Warm, Dry, Intact Neurological: No New Focal Deficit Psy/Mental Status: Alert, Normal Affect, Normal Mood Sepsis Event Note - Evaluation Sepsis Screening Result: No Definite Risk - Focused Exam Vital Signs: Vital Signs Temp Pulse Resp BP BP Pulse Ox 05/11/20 09:34 68 150/81 H 05/11/20 08:05 97.7 F 68 20 150/81 H 96 05/11/20 05:12 98.2 F 67 14 152/79 H 93 L Date Exam was Performed: 05/11/20 Time Exam was Performed: 13:22 - Problem List & Annotations (1) Sepsis SNOMED Code(s): 11007826 Code(s): A41.9 - SEPSIS, UNSPECIFIED ORGANISM Status: Acute Priority: High Current Visit: Yes Qualifiers: Sepsis type: sepsis due to unspecified organism Sepsis acute organ dysfunction status: with acute organ dysfunction Severe 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 Severe sepsis shock status: without septic shock Qualified Code(s): A41.9 - Sepsis, unspecified organism; R65.20 - Severe sepsis without septic shock; G72.81 - Critical illness myopathy (2) Chronic indwelling Martinez catheter SNOMED Code(s): 982358788 Code(s): Z97.8 - PRESENCE OF OTHER SPECIFIED DEVICES Status: Chronic Priority: High Current Visit: Yes (3) Glaucoma SNOMED Code(s): 63898785 Code(s): H40.9 - UNSPECIFIED GLAUCOMA Status: Chronic Priority: Low Current Visit: No Qualifiers: Glaucoma type: unspecified Laterality: unspecified laterality Qualified Code(s): H40.9 - Unspecified glaucoma (4) Macular degeneration SNOMED Code(s): 564037382 Code(s): H35.30 - UNSPECIFIED MACULAR DEGENERATION Status: Chronic Priority: Low Current Visit: No Qualifiers: Macular degeneration type: unspecified type Eye laterality: unspecified Qualified Code(s): H35.30 - Unspecified macular degeneration (5) HLD (hyperlipidemia) SNOMED Code(s): 97255926 Code(s): E78.5 - HYPERLIPIDEMIA, UNSPECIFIED Status: Chronic Priority: Low Current Visit: No Qualifiers: Hyperlipidemia type: unspecified Qualified Code(s): E78.5 - Hyperlipidemia, unspecified (6) HTN (hypertension) SNOMED Code(s): 01995018 Code(s): I10 - ESSENTIAL (PRIMARY) HYPERTENSION Status: Chronic Priority: Medium Current Visit: No Qualifiers: Hypertension type: unspecified Qualified Code(s): I10 - Essential (primary) hypertension (7) BPH (benign prostatic hyperplasia) SNOMED Code(s): 478274824 Code(s): N40.0 - BENIGN PROSTATIC HYPERPLASIA WITHOUT LOWER URINRY TRACT SYMP Status: Chronic Priority: Low Current Visit: No Qualifiers: Lower urinary tract symptom presence: unspecified whether lower urinary tract symptoms present Qualified Code(s): N40.0 - Benign prostatic hyperplasia without lower urinary tract symptoms (8) TIA (transient ischemic attack) SNOMED Code(s): 200868790 Code(s): G45.9 - TRANSIENT CEREBRAL ISCHEMIC ATTACK, UNSPECIFIED Status: Chronic Priority: Low Current Visit: No (9) Confusion SNOMED Code(s): 343198997 Code(s): R41.0 - DISORIENTATION, UNSPECIFIED Status: Chronic Priority: High Current Visit: Yes (10) History of recent fall SNOMED Code(s): 401942405 Code(s): Z91.81 - HISTORY OF FALLING Status: Acute Priority: High Current Visit: Yes (11) Urinary tract infection associated with catheterization of urinary tract SNOMED Code(s): 380327103 Code(s): T83.511A - I/I REACT D/T INDWELLING URETHRAL CATHETER, INIT; N39.0 - URINARY TRACT INFECTION, SITE NOT SPECIFIED Status: Acute Priority: High Current Visit: Yes Qualifiers: Indwelling urinary catheter type: indwelling urethral catheter Encounter type: initial encounter Qualified Code(s): T83.511A - Infection and inflammatory reaction due to indwelling urethral catheter, initial encounter; N39.0 - Urinary tract infection, site not specified (12) Acute renal failure SNOMED Code(s): 56753777 Code(s): N17.9 - ACUTE KIDNEY FAILURE, UNSPECIFIED Status: Acute Priority: Medium Current Visit: Yes Qualifiers: Acute renal failure type: unspecified Qualified Code(s): N17.9 - Acute kidney failure, unspecified (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 SNOMED Code(s): 71285599 Code(s): Q63.1 - LOBULATED, FUSED AND HORSESHOE KIDNEY Status: Chronic Priority: Low Current Visit: Yes (14) Lung nodules SNOMED Code(s): 254457887 Code(s): R91.8 - OTHER NONSPECIFIC ABNORMAL FINDING OF LUNG FIELD Status: Chronic Priority: Medium Current Visit: Yes (15) Hematuria SNOMED Code(s): 01531659 Code(s): R31.9 - HEMATURIA, UNSPECIFIED Status: Acute Priority: Medium Current Visit: Yes Qualifiers: Hematuria type: unspecified type Qualified Code(s): R31.9 - Hematuria, unspecified (16) Bacteremia SNOMED Code(s): 1331181 Code(s): R78.81 - BACTEREMIA Status: Acute Priority: High Current Visit: Yes (17) Anemia SNOMED Code(s): 999585430 Code(s): D64.9 - ANEMIA, UNSPECIFIED Status: Acute Priority: High Current Visit: Yes Qualifiers: Anemia type: other cause Other causes of anemia: acute posthemorrhagic Qualified Code(s): D62 - Acute posthemorrhagic anemia - Problem List Review Problem List Initiated/Reviewed/Updated: Yes - My Orders Last 24 Hours: My Active Orders 05/11/20 06:15 PROCALCITONIN [REF] Routine 05/12/20 05:11 CBC WITH AUTO DIFF [HEME] AM CMP [COMPREHENSIVE METABOLIC PN,CMP] [CHEM] AM MAGNESIUM [CHEM] AM 05/12/20 08:00 CORONAVIRUS COVID-19 PCR PHL Routine - Plan Plan:: S/P Sepsis Urinary tract infection associated with catheterization of urinary tract Chronic indwelling Martinez catheter History of recent fall Confusion Horseshoe kidney Hematuria Bacteremia Hematuria Anemia Presented to ED after fall at [facility] Quite confused - ED provider notes [facility] staff states this is his baseline Head CT negative for acute abnormality Recently had chronic martinez changed in clinic - resulting in gross hematuria Black stool in ED -> On iron therapy and heme negative WBC 14.28-->13.79-->11.32-->8.44-->7.02 INR 1.09 Anion gap 16.0-->12.8-->14.8-->10.1 Lactic acid 4.8-->1.4 Hgb 8.2-->7.4-->7.9 (S/p 1 unit PRBC) -->8.4 UA positive with red, turbid urine, 3+ protein, 3+ ketones, 3+ Occult blood, Positive nitrite, 3+ bilirubin, 3+ leuke eserase, 10-20WBC, Many bacteria COVID-19 screen negative Plan was to discharge back to [facility] then patient became acutely dyspneic Sepsis screen: UTI, Leukocytosis, tachypnea, Lactic acid of 4.8. MEETS SEPSIS CRITERIA IV Fluid bolus of 2L given in ED Zosyn started in ED Given 1 Unit PRBCs on 05/07/20 due to anemia - likely 2/2 significant hematuria and IV fluid dilution Echo obtained on 05/08/20 1. LVEF, by visual estimation, is 60-65%. 2. Impaired relaxation (Grade 1) pattern of LV diastolic filling. 3. Mild aortic valve regurgitation. PLAN - IV fluids as ordered - Blood cultures growing Klebsiella oxytoca and Enterococcus Faecalis - Monitor BP - Continue zosyn -> awaiting further sensitivities to determine PO option - discontinued vancomycin - Hold ASA due to bleeding in urine - Continue chronic martinez - Telemetry - Urine culture showing Klebsiella oxytoca, pseudomonas and Enterococcus Faecalis - PT/OT - CM/SW consult - Repeat Blood cultures negative thus far - Monitor labs Glaucoma Macular degeneration HLD (hyperlipidemia) HTN (hypertension) BPH (benign prostatic hyperplasia) TIA (transient ischemic attack) Lung nodules - Chronic Plan - Hold home BP meds as ordered due to mild hypotension - No active concerns at this time - Home medications as ordered Code status: Full code PCP: Dr. Graham DVT prophylaxis: SCDs - No pharmacological prophylaxis due to gross hematuria GI prophylaxis: Not indicated Social: Patient resides at [facility] Disposition: Patient will be admitted to floor with telemetry for management of sepsis 2/2 UTI and bacteremia. LOS >96 HRS pending repeat blood cultures, SNF return
[2020-05-11] MEDS: Rosuvastatin 10 MG Tab PO SCH (20:26)
[2020-05-11] MEDS: BIMATOPROST EYEBOTH SCH (20:27)
[2020-05-12] MEDS: Piperacillin/Tazobactam 4.5 GM in Sodium Chloride 0.9% 100 ML IV SCH ×3 (03:00→17:58)
--- NOTE | 2020-05-12 09:13 | PCM.PN ---
- General Info Date of Service: 05/12/20 Admission Dx/Problem (Free Text): Admission Diagnosis/Problem Admission Diagnosis/Problem Sepsis Functional Status: Reports: Pain Controlled, Tolerating Diet, Ambulating, Urinating. Denies: New Symptoms - Review of Systems General: Reports: No Symptoms. Denies: Fever, Weakness, Fatigue, Malaise, Chills HEENT: Reports: No Symptoms. Denies: Headaches, Sore Throat Pulmonary: Reports: No Symptoms. Denies: Shortness of Breath, Cough, Sputum, Wheezing Cardiovascular: Reports: No Symptoms. Denies: Chest Pain, Palpitations, Dyspnea on Exertion, Edema Gastrointestinal: Reports: No Symptoms. Denies: Abdominal Pain, Constipation, Diarrhea, Nausea, Vomiting Genitourinary: Reports: No Symptoms. Denies: Pain Musculoskeletal: Reports: No Symptoms Skin: Reports: No Symptoms. Denies: Cyanosis Neurological: Reports: Confusion (Baseline ). Denies: Numbness, Tingling, Difficulty Walking, Weakness, Gait Disturbance Psychiatric: Reports: No Symptoms - Patient Data Vitals - Most Recent: Last Vital Signs Temp 98.1 F 05/12/20 08:11 Pulse 66 05/12/20 08:11 Resp 16 05/12/20 08:11 BP 139/81 05/12/20 08:11 Pulse Ox 97 05/12/20 08:11 Weight - Most Recent: 177 lb 14.4 oz I&O - Last 24 Hours: Intake & Output 05/11/20 05/12/20 05/12/20 22:59 06:59 14:59 Intake Total 1880 500 600 Output Total 1200 2600 Balance 680 -2100 600 Lab Results Last 24 Hours: Laboratory Results - last 24 hr 05/12/20 05/12/20 Range/Units 06:00 06:00 WBC 9.53 H (4.23-9.07) K/mm3 RBC 3.53 L (4.63-6.08) M/mm3 Hgb 8.8 L (13.7-17.5) gm/dl Hct 28.8 L (40.1-51.0) % MCV 81.6 (79.0-92.2) fl MCH 24.9 L (25.7-32.2) pg MCHC 30.6 L (32.2-35.5) g/dl RDW Std Deviation 48.4 H (35.1-43.9) fL Plt Count 292 (163-337) K/mm3 MPV 9.1 L (9.4-12.3) fl Neut % (Auto) 58.4 (34.0-67.9) % Lymph % (Auto) 21.5 L (21.8-53.1) % Marin % (Auto) 9.3 (5.3-12.2) % Eos % (Auto) 9.5 H (0.8-7.0) Baso % (Auto) 0.9 (0.1-1.2) % Neut # (Auto) 5.55 H (1.78-5.38) K/mm3 Lymph # (Auto) 2.05 (1.32-3.57) K/mm3 Marin # (Auto) 0.89 H (0.30-0.82) K/mm3 Eos # (Auto) 0.91 H (0.04-0.54) K/mm3 Baso # (Auto) 0.09 H (0.01-0.08) K/mm3 Manual Slide Review Abnormal smear Sodium 137 (136-145) mEq/L Potassium 4.2 (3.5-5.1) mEq/L Chloride 105 (98-107) mEq/L Carbon Dioxide 25 (21-32) mEq/L Anion Gap 11.2 (5-15) BUN 14 (7-18) mg/dL Creatinine 0.9 (0.7-1.3) mg/dL Est Cr Clr Drug Dosing 52.02 mL/min Estimated GFR (MDRD) > 60 (>60) mL/min BUN/Creatinine Ratio 15.6 (14-18) Glucose 89 (83-115) mg/dL Calcium 8.3 L (8.5-10.1) mg/dL Magnesium 2.1 (1.8-2.4) mg/dl Total Bilirubin 0.4 (0.2-1.0) mg/dL AST 23 (15-37) U/L ALT 19 (16-63) U/L Alkaline Phosphatase 38 L (46-116) U/L Total Protein 5.9 L (6.4-8.2) g/dl Albumin 2.2 L (3.4-5.0) g/dl Globulin 3.7 gm/dL Albumin/Globulin Ratio 0.6 L (1-2) [place] Results Last 24 Hours: Microbiology 05/09/20 05:30 Aerobic Blood Culture - Preliminary Blood - Venous NO GROWTH AFTER 3 DAYS Anaerobic Blood Culture - Preliminary NO GROWTH AFTER 3 DAYS 05/09/20 05:45 Aerobic Blood Culture - Preliminary Blood - Venous - Lab Draw NO GROWTH AFTER 3 DAYS Anaerobic Blood Culture - Preliminary NO GROWTH AFTER 3 DAYS 05/07/20 01:00 Urine Culture - Final Urine, Martinez Cath (Indwelling) Klebsiella Oxytoca Pseudomonas Aeruginosa Enterococcus Faecalis 05/07/20 04:35 Aerobic Blood Culture - Final Blood - Venous Klebsiella Oxytoca Anaerobic Blood Culture - Final Klebsiella Oxytoca Enterococcus Faecalis Med Orders - Current: Current Medications Acetaminophen (Tylenol) 650 mg PO Q4H PRN PRN Reason: Pain (Mild 1-3)/fever Albuterol/Ipratropium (Duoneb 3.0-0.5 Mg/3 Ml) 3 ml NEB Q4H PRN PRN Reason: Shortness Of Breath/wheezing Last Admin: 05/08/20 17:49 Dose: 3 ml Documented by: Celecoxib (Celebrex) 200 mg PO DAILY [facility] Last Admin: 05/11/20 09:35 Dose: 200 mg Documented by: Finasteride (Proscar) 5 mg PO BID [facility] Last Admin: 05/11/20 20:26 Dose: 5 mg Documented by: Piperacillin Sod/Tazobactam (Sod 4.5 gm/ Sodium Chloride) 100 mls @ 25 mls/hr IV Q8H [facility] Last Admin: 05/12/20 03:00 Dose: 25 mls/hr Documented by: Sodium Chloride (Normal Saline) 1,000 mls @ 50 mls/hr IV ASDIRECTED [facility] Last Admin: 05/10/20 11:24 Dose: 50 mls/hr Documented by: Metoprolol Succinate (Toprol Xl) 25 mg PO DAILY [facility] Last Admin: 05/11/20 09:34 Dose: 25 mg Documented by: Bimatoprost 1 Drop (Ptom) 1 each EYEBOTH BEDTIME [facility] Last Admin: 05/11/20 20:27 Dose: Not Given Documented by: Iron [Iron] 65 Mg 0 each PO BID [facility] Last Admin: 05/11/20 20:27 Dose: Not Given Documented by: Polyethylene Glycol (Miralax) 17 gm PO DAILY [facility] Last Admin: 05/11/20 09:36 Dose: 17 gm Documented by: Rosuvastatin Calcium (Crestor) 5 mg PO BEDTIME [facility] Last Admin: 05/11/20 20:26 Dose: 5 mg Documented by: Sodium Chloride (Saline Flush) 10 ml FLUSH ONETIME PRN PRN Reason: IV FLUSH Last Admin: 05/07/20 08:26 Dose: 10 ml Documented by: Tamsulosin HCl (Flomax) 0.4 mg PO DAILY [facility] Last Admin: 05/11/20 09:34 Dose: 0.4 mg Documented by: Discontinued Medications Albuterol/Ipratropium (Duoneb 3.0-0.5 Mg/3 Ml) 3 ml NEB ONETIME ONE Stop: 05/07/20 04:06 Last Admin: 05/07/20 04:12 Dose: 3 ml Documented by: Cephalexin (Keflex) 500 mg PO ONETIME ONE Stop: 05/07/20 02:55 Last Admin: 05/07/20 03:25 Dose: 500 mg Documented by: Furosemide (Lasix) 40 mg IVPUSH NOW ONE Stop: 05/08/20 08:01 Last Admin: 05/08/20 08:15 Dose: 40 mg Documented by: Lactated Ringer's (Ringers, Lactated) 1,000 mls @ 999 mls/hr IV .BOLUS ONE Stop: 05/07/20 05:25 Last Admin: 05/07/20 04:31 Dose: 999 mls/hr Documented by: Piperacillin Sod/Tazobactam (Sod 4.5 gm/ Sodium Chloride) 100 mls @ 200 mls/hr IV ONETIME ONE Stop: 05/07/20 06:11 Last Admin: 05/07/20 06:01 Dose: 200 mls/hr Documented by: Lactated Ringer's (Ringers, Lactated) 1,000 mls @ 150 mls/hr IV ASDIRECTED [facility] Last Admin: 05/07/20 14:09 Dose: 150 mls/hr Documented by: Lactated Ringer's (Ringers, Lactated) 1,000 mls @ 999 mls/hr IV .BOLUS ONE Stop: 05/07/20 06:46 Last Admin: 05/07/20 05:51 Dose: 999 mls/hr Documented by: Sodium Chloride (Normal Saline) 100 mls @ 75 mls/hr IV ASDIRECTED [facility] Last Admin: 05/07/20 08:26 Dose: 75 mls/hr Documented by: Lactated Ringer's (Ringers, Lactated) 1,000 mls @ 100 mls/hr IV ASDIRECTED [facility] Vancomycin HCl 1 gm/ Sodium (Chloride) 250 mls @ 250 mls/hr IV Q12HR [facility] Piperacillin Sod/Tazobactam (Sod 4.5 gm/ Sodium Chloride) 100 mls @ 200 mls/hr IV ONETIME ONE Stop: 05/07/20 18:44 Last Admin: 05/07/20 18:41 Dose: 200 mls/hr Documented by: Vancomycin HCl 1.5 gm/ Sodium (Chloride) 500 mls @ 250 mls/hr IV Q24H [facility] Last Admin: 05/08/20 21:38 Dose: 250 mls/hr Documented by: Sodium Chloride (Normal Saline) 250 mls @ 100 mls/hr IV ASDIRECTED [facility] Lactated Ringer's (Ringers, Lactated) 1,000 mls @ 50 mls/hr IV ASDIRECTED [facility] Last Admin: 05/08/20 00:08 Dose: 50 mls/hr Documented by: Sodium Chloride (Normal Saline) 250 mls @ 25 mls/hr IV ASDIRECTED [facility] Last Admin: 05/07/20 22:00 Dose: 25 mls/hr Documented by: Vancomycin HCl 1 gm/Vancomycin HCl 500 mg/ Sodium Chloride 500 mls @ 250 mls/hr IV Q24H [facility] Last Admin: 05/09/20 20:14 Dose: 250 mls/hr Documented by: Vancomycin HCl 1 gm/Vancomycin HCl 500 mg/ Sodium Chloride 500 mls @ 250 mls/hr IV Q24H [facility] Last Admin: 05/10/20 00:23 Dose: 250 mls/hr Documented by: Iopamidol (Isovue-370 (76%)) 100 ml IVPUSH ONETIME ONE Stop: 05/07/20 07:56 Last Admin: 05/07/20 08:26 Dose: 100 ml Documented by: Vancomycin HCl (Pharmacy To Dose - Vancomycin) 1 dose .XX ASDIRECTED PRN PRN Reason: PHARMACY TO DOSE VANCO - Exam Quality Assessment: DVT Prophylaxis General: Alert, Oriented, Cooperative, No Acute Distress HEENT: Pupils Equal, Pupils Reactive, Mucous Membr. Moist/Devol Neck: Supple, Trachea Midline Lungs: Clear to Auscultation, Normal Respiratory Effort Cardiovascular: Regular Rate, Regular Rhythm GI/Abdominal Exam: Normal Bowel Sounds, Soft, Non-Tender, No Organomegaly, No Distention (Male) Exam: Deferred Back Exam: Normal Inspection, Full Range of Motion Extremities: Normal Inspection, Normal Range of Motion, Non-Tender, No Pedal Edema Skin: Warm, Dry, Intact Neurological: No New Focal Deficit Psy/Mental Status: Alert, Normal Affect, Normal Mood Sepsis Event Note - Evaluation Sepsis Screening Result: No Definite Risk - Focused Exam Vital Signs: Vital Signs Temp Pulse Resp BP Pulse Ox 05/12/20 08:11 98.1 F 66 16 139/81 97 05/12/20 05:10 98.2 F 70 14 152/78 H 94 L Date Exam was Performed: 05/12/20 Time Exam was Performed: 13:25 - Problem List & Annotations (1) Sepsis SNOMED Code(s): 46980642 Code(s): A41.9 - SEPSIS, UNSPECIFIED ORGANISM Status: Acute Priority: High Current Visit: Yes Qualifiers: Sepsis type: sepsis due to unspecified organism Sepsis acute organ dysfunction status: with acute organ dysfunction Severe 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 Severe sepsis shock status: without septic shock Qualified Code(s): A41.9 - Sepsis, unspecified organism; R65.20 - Severe sepsis without septic shock; G72.81 - Critical illness myopathy (2) Chronic indwelling Martinez catheter SNOMED Code(s): 836081866 Code(s): Z97.8 - PRESENCE OF OTHER SPECIFIED DEVICES Status: Chronic Priority: High Current Visit: Yes (3) Glaucoma SNOMED Code(s): 73994895 Code(s): H40.9 - UNSPECIFIED GLAUCOMA Status: Chronic Priority: Low Current Visit: No Qualifiers: Glaucoma type: unspecified Laterality: unspecified laterality Qualified Code(s): H40.9 - Unspecified glaucoma (4) Macular degeneration SNOMED Code(s): 177528573 Code(s): H35.30 - UNSPECIFIED MACULAR DEGENERATION Status: Chronic Priority: Low Current Visit: No Qualifiers: Macular degeneration type: unspecified type Eye laterality: unspecified Qualified Code(s): H35.30 - Unspecified macular degeneration (5) HLD (hyperlipidemia) SNOMED Code(s): 06680425 Code(s): E78.5 - HYPERLIPIDEMIA, UNSPECIFIED Status: Chronic Priority: Low Current Visit: No Qualifiers: Hyperlipidemia type: unspecified Qualified Code(s): E78.5 - Hyperlipidemia, unspecified (6) HTN (hypertension) SNOMED Code(s): 31403544 Code(s): I10 - ESSENTIAL (PRIMARY) HYPERTENSION Status: Chronic Priority: Medium Current Visit: No Qualifiers: Hypertension type: unspecified Qualified Code(s): I10 - Essential (primary) hypertension (7) BPH (benign prostatic hyperplasia) SNOMED Code(s): 219159223 Code(s): N40.0 - BENIGN PROSTATIC HYPERPLASIA WITHOUT LOWER URINRY TRACT SYMP Status: Chronic Priority: Low Current Visit: No Qualifiers: Lower urinary tract symptom presence: unspecified whether lower urinary tract symptoms present Qualified Code(s): N40.0 - Benign prostatic hyperplasia with out lower urinary tract symptoms (8) TIA (transient ischemic attack) SNOMED Code(s): 646490741 Code(s): G45.9 - TRANSIENT CEREBRAL ISCHEMIC ATTACK, UNSPECIFIED Status: Chronic Priority: Low Current Visit: No (9) Confusion SNOMED Code(s): 420024636 Code(s): R41.0 - DISORIENTATION, UNSPECIFIED Status: Chronic Priority: High Current Visit: Yes (10) History of recent fall SNOMED Code(s): 694037050 Code(s): Z91.81 - HISTORY OF FALLING Status: Acute Priority: High Current Visit: Yes (11) Urinary tract infection associated with catheterization of urinary tract SNOMED Code(s): 899219623 Code(s): T83.511A - I/I REACT D/T INDWELLING URETHRAL CATHETER, INIT; N39.0 - URINARY TRACT INFECTION, SITE NOT SPECIFIED Status: Acute Priority: High Current Visit: Yes Qualifiers: Indwelling urinary catheter type: indwelling urethral catheter Encounter type: initial encounter Qualified Code(s): T83.511A - Infection and i nflammatory reaction due to indwelling urethral catheter, initial encounter; N39.0 - Urinary tract infection, site not specified (12) Acute renal failure SNOMED Code(s): 27966578 Code(s): N17.9 - ACUTE KIDNEY FAILURE, UNSPECIFIED Status: Acute Priority: Medium Current Visit: Yes Qualifiers: Acute renal failure type: unspecified Qualified Code(s): N17.9 - Acute kidney failure, unspecified (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 SNOMED Code(s): 00667619 Code(s): Q63.1 - LOBULATED, FUSED AND HORSESHOE KIDNEY Status: Chronic Priority: Low Current Visit: Yes (14) Lung nodules SNOMED Code(s): 773604233 Code(s): R91.8 - OTHER NONSPECIFIC ABNORMAL FINDING OF LUNG FIELD Status: Chronic Priority: Medium Current Visit: Yes (15) Hematuria SNOMED Code(s): 10141705 Code(s): R31.9 - HEMATURIA, UNSPECIFIED Status: Acute Priority: Medium Current Visit: Yes Qualifiers: Hematuria type: unspecified type Qualified Code(s): R31.9 - Hematuria, unspecified (16) Bacteremia SNOMED Code(s): 1546258 Code(s): R78.81 - BACTEREMIA Status: Acute Priority: High Current Visit: Yes (17) Anemia SNOMED Code(s): 983863106 Code(s): D64.9 - ANEMIA, UNSPECIFIED Status: Acute Priority: High Current Visit: Yes Qualifiers: Anemia type: other cause Other causes of anemia: acute posthemorrhagic Qualified Code(s): D62 - Acute posthemorrhagic anemia - Problem List Review Problem List Initiated/Reviewed/Updated: Yes - My Orders Last 24 Hours: My Active Orders 05/12/20 08:00 CORONAVIRUS COVID-19 PCR PHL Routine - Plan Plan:: S/P Sepsis Urinary tract infection associated with catheterization of urinary tract Chronic indwelling Martinez catheter History of recent fall Confusion Horseshoe kidney Hematuria Bacteremia Hematuria Anemia Presented to ED after fall at [facility] Quite confused - ED provider notes [facility] staff states this is his baseline Head CT negative for acute abnormality Recently had chronic martinez changed in clinic - resulting in gross hematuria Black stool in ED -> On iron therapy and heme negative WBC 14.28-->13.79-->11.32-->8.44-->7.02-->9.53 INR 1.09 Anion gap 16.0-->12.8-->14.8-->10.1-->12.1-->11.2 Lactic acid 4.8-->1.4 Hgb 8.2-->7.4-->7.9 (S/p 1 unit PRBC) -->8.4-->8.8 UA positive with red, turbid urine, 3+ protein, 3+ ketones, 3+ Occult blood, Positive nitrite, 3+ bilirubin, 3+ leuke eserase, 10-20WBC, Many bacteria COVID-19 screen negative Plan was to discharge back to [facility] then patient became acutely dyspneic Sepsis screen: UTI, Leukocytosis, tachypnea, Lactic acid of 4.8. MEETS SEPSIS CRITERIA IV Fluid bolus of 2L given in ED Zosyn started in ED Given 1 Unit PRBCs on 05/07/20 due to anemia - likely 2/2 significant hematuria and IV fluid dilution Echo obtained on 05/08/20 1. LVEF, by visual estimation, is 60-65%. 2. Impaired relaxation (Grade 1) pattern of LV diastolic filling. 3. Mild aortic valve regurgitation. Repeat COVID-19 negative PLAN - IV fluids as ordered - Blood cultures growing Klebsiella oxytoca and Enterococcus Faecalis - Monitor BP - Continue zosyn -> awaiting further sensitivities to determine PO option - Discontinued vancomycin - Hold ASA due to bleeding in urine - Continue chronic martinez - Telemetry - Urine culture showing Klebsiella oxytoca, pseudomonas and Enterococcus Faecalis - PT/OT - CM/SW consult - Repeat Blood cultures negative thus far - Monitor labs Glaucoma Macular degeneration HLD (hyperlipidemia) HTN (hypertension) BPH (benign prostatic hyperplasia) TIA (transient ischemic attack) Lung nodules - Chronic Plan - Hold home BP meds as ordered due to mild hypotension - No active concerns at this time - Home medications as ordered Code status: Full code PCP: Dr. Graham DVT prophylaxis: SCDs - No pharmacological prophylaxis due to gross hematuria GI prophylaxis: Not indicated Social: Patient resides at [facility] Disposition: Patient will be admitted to floor with telemetry for management of sepsis 2/2 UTI and bacteremia. LOS >96 HRS pending repeat blood cultures, SNF return
[2020-05-12] MEDS: Polyethylene Glycol 3350 Powder 17 GM Packet PO SCH (09:14)
[2020-05-12] MEDS: Metoprolol Succinate 25 MG Tab.ER PO SCH (09:15)
[2020-05-12] MEDS: Finasteride 5 MG Tab PO SCH ×2 (09:15→20:39)
[2020-05-12] MEDS: Celecoxib 100 MG Cap PO SCH (09:16)
[2020-05-12] MEDS: Tamsulosin 0.4 MG Cap.ER PO SCH (09:16)
[2020-05-12] MEDS: IRON 65 MG PO SCH ×2 (09:17→20:41)
[2020-05-12] MEDS: Rosuvastatin 10 MG Tab PO SCH (20:39)
[2020-05-12] MEDS: Lisinopril 10 MG Tab PO SCH (20:40)
[2020-05-12] MEDS: BIMATOPROST EYEBOTH SCH (20:41)
[2020-05-13] MEDS: Piperacillin/Tazobactam 4.5 GM in Sodium Chloride 0.9% 100 ML IV SCH ×2 (02:30→09:00)
[2020-05-13] MEDS: Celecoxib 100 MG Cap PO SCH (09:01)
[2020-05-13] MEDS: Lisinopril 10 MG Tab PO SCH (09:01)
[2020-05-13] MEDS: Polyethylene Glycol 3350 Powder 17 GM Packet PO SCH (09:01)
[2020-05-13] MEDS: Finasteride 5 MG Tab PO SCH (09:02)
[2020-05-13] MEDS: Metoprolol Succinate 25 MG Tab.ER PO SCH (09:02)
[2020-05-13] MEDS: Tamsulosin 0.4 MG Cap.ER PO SCH (09:02)
[2020-05-13] MEDS: IRON 65 MG PO SCH (09:03)
--- NOTE | 2020-05-13 11:45 | PCM.DCSUM1 ---
Discharge Summary - Hospital Course HPI Initial Comments: Bill Hansen is an 89 yo male who presents to ED on 05/06/2020 via [facility] after he fell at [facility] living [facility] where he resides. Patient has baseline dementia and per staff he is at his usual mental status. Is reported that he had his Grayson catheter change in the clinic earlier in the day and had some bleeding from this. Nursing also reports some black and tarry stools. Due to patient's baseline dementia he is a poor historian. In the ER is noted that the patient is on iron supplementation and this is likely the cause of his black stools. Hemoccult is negative. He is on a baby aspirin daily. In the ED temp was 37.7. Pulse 88. Respirations 20. Blood pressure 108/53. Pulse oximetry 95. His blood pressure did tend to stay on the low side of normal throughout his ED stay. Head CT is obtained and interpreted by Dr. Meneds as "1. Senescent changes noted above. 2. Minimal mucosal thickening scattered within the erythroid sinuses believed to be nonacute. 3. No acute intracranial abnormalities appreciated. Creatinine is modestly elevated and UA shows a urinary tract infection along with bleeding from his aforementioned Grayson change. Is noted that nursing did manipulate the catheter and 600 cc of urine was produced. While the patient was resting in the ED he suddenly awoke and was noted to have wheezing and dyspnea. Chest x-ray was obtained and showed nothing acute. He was given a DuoNeb. He is also noted to be tachycardic with a heart rate in the 120s. Fluid bolus was started and blood cultures were obtained. Lactic acid was checked and was 4.8. COVID-19 screen was negative. There is no documented fevers. He was started on Zosyn. 12-lead EKG shows sinus rhythm at 81 BPM. He carries a history of glaucoma, macular degeneration, HLD, hypertension, BPH, TIA, Multiple lung nodules, Horseshoe kidney, HTN. He was never smoker. There is no documented history of confusion or dementia but per [facility] staff he is at baseline confusion. His PCP is Dr. Graham. Assisted living paperwork notes "CPR" for code status. At this time we will put him in is a full code until we clarify. He will be admitted to the medical floor on telemetry for management of his sepsis, urinary tract infection, and work-up of his acute respiratory symptoms. 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 Severe sepsis shock status: without septic shock Qualified Code(s): A41.9 - Sepsis, unspecified organism; R65.20 - Severe sepsis without septic shock; G72.81 - Critical illness myopathy (2) Chronic indwelling Grayson catheter SNOMED Code(s): 615909234 ICD Code: Z97.8 - PRESENCE OF OTHER SPECIFIED DEVICES Status: Chronic Priority: High Current Visit: Yes (3) Glaucoma SNOMED Code(s): 87122476 ICD Code: H40.9 - UNSPECIFIED GLAUCOMA Status: Chronic Priority: Low Current Visit: No Qualifiers: Glaucoma type: unspecified Laterality: unspecified laterality Qualified Code(s): H40.9 - Unspecified glaucoma (4) Macular degeneration SNOMED Code(s): 083082630 ICD Code: H35.30 - UNSPECIFIED MACULAR DEGENERATION Status: Chronic Priority: Low Current Visit: No Qualifiers: Macular degeneration type: unspecified type Eye laterality: unspecified Qualified Code(s): H35.30 - Unspecified macular degeneration (5) HLD (hyperlipidemia) SNOMED Code(s): 98748998 ICD Code: E78.5 - HYPERLIPIDEMIA, UNSPECIFIED Status: Chronic Priority: Low Current Visit: No Qualifiers: Hyperlipidemia type: unspecified Qualified Code(s): E78.5 - Hyperlipidemia, unspecified (6) HTN (hypertension) SNOMED Code(s): 47366961 ICD Code: I10 - ESSENTIAL (PRIMARY) HYPERTENSION Status: Chronic Priority: Medium Current Visit: No Qualifiers: Hypertension type: unspecified Qualified Code(s): I10 - Essential (primary) hypertension (7) BPH (benign prostatic hyperplasia) SNOMED Code(s): 594565973 ICD Code: N40.0 - BENIGN PROSTATIC HYPERPLASIA WITHOUT LOWER URINRY TRACT SYMP Status: Chronic Priority: Low Current Visit: No Qualifiers: Lower urinary tract symptom presence: unspecified whether lower urinary tract symptoms present Qualified Code(s): N40.0 - Benign prostatic hyperplasia without lower urinary tract symptoms (8) TIA (transient ischemic attack) SNOMED Code(s): 619987942 ICD Code: G45.9 - TRANSIENT CEREBRAL ISCHEMIC ATTACK, UNSPECIFIED Status: Chronic Priority: Low Current Visit: No (9) Confusion SNOMED Code(s): 938620238 ICD Code: R41.0 - DISORIENTATION, UNSPECIFIED Status: Chronic Priority: High Current Visit: Yes (10) History of recent fall SNOMED Code(s): 600637138 ICD Code: Z91.81 - HISTORY OF FALLING Status: Acute Priority: High Current Visit: Yes (11) Urinary tract infection associated with catheterization of urinary tract SNOMED Code(s): 502030603 ICD Code: T83.511A - I/I REACT D/T INDWELLING URETHRAL CATHETER, INIT; N39.0 - URINARY TRACT INFECTION, SITE NOT SPECIFIED Status: Acute Priority: High Current Visit: Yes Qualifiers: Indwelling urinary catheter type: indwelling urethral catheter Encounter type: initial encounter Qualified Code(s): T83.511A - Infection and inflammatory reaction due to indwelling urethral catheter, initial encounter; N39.0 - Urinary tract infection, site not specified (12) Acute renal failure SNOMED Code(s): 81079735 ICD Code: N17.9 - ACUTE KIDNEY FAILURE, UNSPECIFIED Status: Resolved Priority: Medium Current Visit: Yes Qualifiers: Acute renal failure type: unspecified Qualified Code(s): N17.9 - Acute kidney failure, unspecified (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 SNOMED Code(s): 32634283 ICD Code: Q63.1 - LOBULATED, FUSED AND HORSESHOE KIDNEY Status: Chronic Priority: Low Current Visit: Yes (14) Lung nodules SNOMED Code(s): 967182105 ICD Code: R91.8 - OTHER NONSPECIFIC ABNORMAL FINDING OF LUNG FIELD Status: Chronic Priority: Medium Current Visit: Yes (15) Hematuria SNOMED Code(s): 98824725 ICD Code: R31.9 - HEMATURIA, UNSPECIFIED Status: Acute Priority: Medium Current Visit: Yes Qualifiers: Hematuria type: unspecified type Qualified Code(s): R31.9 - Hematuria, unspecified (16) Bacteremia SNOMED Code(s): 4682015 ICD Code: R78.81 - BACTEREMIA Status: Resolved Priority: High Current Visit: Yes (17) Anemia SNOMED Code(s): 459425311 ICD Code: D64.9 - ANEMIA, UNSPECIFIED Status: Acute Priority: High Current Visit: Yes Qualifiers: Anemia type: other cause Other causes of anemia: acute posthemorrhagic Qualified Code(s): D62 - Acute posthemorrhagic anemia - Patient Summary/Data Consults: Consultations 05/07/20 07:43 Consult to Case Management/Swamper [CONS] Routine Consult to Spiritual Care [CONS] Routine OT Evaluation and Treatment [CONS] Routine PT Evaluation and Treatment [CONS] Routine Respiratory Care Assess and Treatment [CONS] Routine Labs Pending at D/C: None Recommended Follow-up Testing/Procedures: Follow-up with PCP within 5-7 days of discharge, sooner if needed. Recommend outpatient urology follow-up Hospital Course: Bill was admitted to the hospital floor with sepsis secondary to a urinary tract infection and bacteremia. He does have a chronic indwelling Grayson catheter which has been changed prior to him being admitted. This appears to have been somewhat traumatic as he had very colored urine. He also was noted to have a drop in his hemoglobin. Hgb trend was 8.2-->7.4-->7.9 (S/p 1 unit PRBC) -->8.4-->8.8-->8.7. Was given 1 unit PRBCs. His white count did trend downward. Lactic acid was 4.8 on admission and repeat was 1.4. Started on Zosyn and vancomycin in the ED. Blood cultures grew out Klebsiella oxytoca and enterococcus faecalis. Wound cultures grew out Klebsiella oxytoca, Pseudomonas, and Enterococcus faecalis. He is on home aspirin 81 mg and this was held due to his bleeding from his chronic Grayson catheter. His urine clear up. Repeat blood cultures were negative x4 days. Home BP meds were held due to hypotension and he did receive multiple fluid boluses in the ED and on the floor. He was given Lasix x1 due to fluid overload required for sepsis protocol. He responded well to this. He was noted to have some acute renal injury and this did resolve prior to discharge. He resides at [facility] living [facility] and they did evaluate him and deemed him appropriate to return. PT/OT did see him and agreed this is appropriate. Urine and blood cultures were reviewed with Dr. Mckenzie ultimately decision was made to start him on Bactrim DS. He will be prescribed Bactrim DS 1 tablet twice daily for 4 more days. All home medications were continued He has been afebrile on the floor. COVID-19 screens were obtained and all were negative. There was no concerns of COVID-19 symptoms however this was a requirement of [facility] placement. He will be discharged today. He was instructed to follow-up with his primary care provider, Dr. Graham, within 5 to 7 days of discharge. Recommend repeat CBC, CMP, and magnesium at that appointment. Recommend follow-up with urology outpatient. He was instructed to return to the emergency room should symptoms return or worsen. - Patient Instructions Diet: Heart Healthy Diet Activity: As Tolerated Driving: Do Not Drive Showering/Bathing: May Shower Notify Provider of: Fever, Increased Pain, Nausea and/or Vomiting Other/Special Instructions: Follow-up wi primary care provider [facility] 5-7 days of discharge, sooner if needed. Recommend urology follow-up outpatient. Take all of your antibiotic until gone, even if your feel 100% better. Resume home medications as directed. Recommend outpatient PT/OT. Should symptoms return or worsen contact primary care provider or return to the Emergncy Department. - Discharge Plan *PRESCRIPTION DRUG MONITORING PROGRAM REVIEWED*: No *COPY OF PRESCRIPTION DRUG MONITORING REPORT IN PATIENT MIRTA: No Prescriptions/Med Rec: Sulfamethoxazole/Trimethoprim [Bactrim Ds Tablet] 1 each PO BID #6 tablet Home Medications: Home Meds Finasteride 5 mg PO BID 11/07/17 [History] Lisinopril [Prinivil] 10 mg PO BID 11/07/17 [History] Terazosin [Hytrin] 1 mg PO BEDTIME 11/07/17 [History] amLODIPine Besylate [Amlodipine Besylate] 5 mg PO DAILY 07/25/18 [History] Polyethylene Glycol [Polyox Wsr-301] 17 gm PO DAILY 07/28/19 [History] Tamsulosin [Flomax] 0.4 mg PO DAILY 07/28/19 [History] Bimatoprost [LUMIGAN 0.01% Ophth Soln] 1 drop EYEBOTH BEDTIME 07/29/19 [History] Vit A/Vit C/Vit E/Zinc/Copper [Preservision] 1 cap PO BID 07/29/19 [History] Acetaminophen [Tylenol] 650 mg PO Q6H PRN 05/07/20 [History] Aspirin [Aspirin EC] 81 mg PO DAILY 05/07/20 [History] Calcium Carbonate [Antacid] 2 tab PO ASDIRECTED PRN 05/07/20 [History] Celecoxib 200 mg PO DAILY 05/07/20 [History] Iron 65 mg PO BID 05/07/20 [History] Metoprolol Succinate 25 mg PO DAILY 05/07/20 [History] Rosuvastatin [Crestor] 5 mg PO BEDTIME 05/07/20 [History] Sulfamethoxazole/Trimethoprim [Bactrim Ds Tablet] 1 each PO BID #6 tablet 05/13/20 [Rx] Oxygen Therapy Mode: Room Air Patient Handouts: Indwelling Urinary Catheter Care, Adult, Urinary Tract Infection, Adult, [id number], Urosepsis, Adult, Bacteremia, Adult, Sepsis, Self Care, Adult Referrals: Kelly Graham MD [Primary Care Provider] - 05/16/20 2:00 pm (Please follow up with Dr. Graham on May 16 at 2pm.) - Discharge Summary/Plan Comment DC Time >30 min.: Yes (45 mins ) - General Info Date of Service: 05/13/20 Admission Dx/Problem (Free Text: Admission Diagnosis/Problem Admission Diagnosis/Problem Sepsis Functional Status: Reports: Pain Controlled, Tolerating Diet, Ambulating, Urinating. Denies: New Symptoms - Review of Systems General: Reports: No Symptoms. Denies: Fever, Weakness, Fatigue, Malaise HEENT: Reports: No Symptoms. Denies: Headaches, Sore Throat Pulmonary: Reports: No Symptoms. Denies: Shortness of Breath, Cough, Sputum, Wheezing Cardiovascular: Reports: No Symptoms. Denies: Chest Pain, Palpitations Gastrointestinal: Reports: No Symptoms. Denies: Abdominal Pain, Constipation, Decreased Appetite, Diarrhea, Nausea, Vomiting Genitourinary: Reports: No Symptoms. Denies: Pain Musculoskeletal: Reports: No Symptoms Skin: Reports: No Symptoms. Denies: Cyanosis Neurological: Reports: Confusion (Baseline ), Pre-Existing Deficit. Denies: Numbness, Tingling, Difficulty Walking, Weakness, Gait Disturbance Psychiatric: Reports: No Symptoms - Patient Data Vitals - Most Recent: Last Vital Signs Temp 98.4 F 05/13/20 07:52 Pulse 74 05/13/20 09:02 Resp 20 05/13/20 07:52 BP 131/75 05/13/20 09:02 Pulse Ox 92 L 05/13/20 07:52 Weight - Most Recent: 176 lb 6.4 oz I&O - Last 24 hours: Intake & Output 05/12/20 05/13/20 05/13/20 22:59 06:59 14:59 Intake Total 840 550 180 Output Total 1000 1750 Balance -160 -1200 180 Lab Results - Last 24 hrs: Laboratory Results - last 24 hr 05/12/20 05/13/20 Range/Units 11:55 05:38 WBC 9.96 H (4.23-9.07) K/mm3 RBC 3.51 L (4.63-6.08) M/mm3 Hgb 8.7 L (13.7-17.5) gm/dl Hct 28.6 L (40.1-51.0) % MCV 81.5 (79.0-92.2) fl MCH 24.8 L (25.7-32.2) pg MCHC 30.4 L (32.2-35.5) g/dl RDW Std Deviation 49.3 H (35.1-43.9) fL Plt Count 317 (163-337) K/mm3 MPV 9.5 (9.4-12.3) fl Neut % (Auto) 58.9 (34.0-67.9) % Lymph % (Auto) 23.3 (21.8-53.1) % [place] % (Auto) 7.5 (5.3-12.2) % Eos % (Auto) 9.4 H (0.8-7.0) Baso % (Auto) 0.7 (0.1-1.2) % Neut # (Auto) 5.86 H (1.78-5.38) K/mm3 Lymph # (Auto) 2.32 (1.32-3.57) K/mm3 [place] # (Auto) 0.75 (0.30-0.82) K/mm3 Eos # (Auto) 0.94 H (0.04-0.54) K/mm3 Baso # (Auto) 0.07 (0.01-0.08) K/mm3 Manual Slide Review Abnormal smear SARS-CoV-2 RNA (RT-PCR) Negative (NEGATIVE) FENG Results - Last 24 hrs: Microbiology 05/09/20 05:30 Aerobic Blood Culture - Preliminary Blood - Venous NO GROWTH AFTER 4 DAYS Anaerobic Blood Culture - Preliminary NO GROWTH AFTER 4 DAYS 05/09/20 05:45 Aerobic Blood Culture - Preliminary Blood - Venous - Lab Draw NO GROWTH AFTER 4 DAYS Anaerobic Blood Culture - Preliminary NO GROWTH AFTER 4 DAYS Med Orders - Current: Current Medications Acetaminophen (Tylenol) 650 mg PO Q4H PRN PRN Reason: Pain (Mild 1-3)/fever Albuterol/Ipratropium (Duoneb 3.0-0.5 Mg/3 Ml) 3 ml NEB Q4H PRN PRN Reason: Shortness Of Breath/wheezing Last Admin: 05/08/20 17:49 Dose: 3 ml Documented by: Celecoxib (Celebrex) 200 mg PO DAILY [facility] Last Admin: 05/13/20 09:01 Dose: 200 mg Documented by: Finasteride (Proscar) 5 mg PO BID [facility] Last Admin: 05/13/20 09:02 Dose: 5 mg Documented by: Piperacillin Sod/Tazobactam (Sod 4.5 gm/ Sodium Chloride) 100 mls @ 25 mls/hr IV Q8H [facility] Last Admin: 05/13/20 09:00 Dose: 25 mls/hr Documented by: Lisinopril (Prinivil) 10 mg PO BID [facility] Last Admin: 05/13/20 09:01 Dose: 10 mg Documented by: Metoprolol Succinate (Toprol Xl) 25 mg PO DAILY [facility] Last Admin: 05/13/20 09:02 Dose: 25 mg Documented by: Bimatoprost 1 Drop (Ptom) 1 each EYEBOTH BEDTIME [facility] Last Admin: 05/12/20 20:41 Dose: Not Given Documented by: Iron [Iron] 65 Mg 0 each PO BID [facility] Last Admin: 05/13/20 09:03 Dose: Not Given Documented by: Polyethylene Glycol (Miralax) 17 gm PO DAILY [facility] Last Admin: 05/13/20 09:01 Dose: 17 gm Documented by: Rosuvastatin Calcium (Crestor) 5 mg PO BEDTIME [facility] Last Admin: 05/12/20 20:39 Dose: 5 mg Documented by: Sodium Chloride (Saline Flush) 10 ml FLUSH ONETIME PRN PRN Reason: IV FLUSH Last Admin: 05/07/20 08:26 Dose: 10 ml Documented by: Tamsulosin HCl (Flomax) 0.4 mg PO DAILY [facility] Last Admin: 05/13/20 09:02 Dose: 0.4 mg Documented by: Discontinued Medications Albuterol/Ipratropium (Duoneb 3.0-0.5 Mg/3 Ml) 3 ml NEB ONETIME ONE Stop: 05/07/20 04:06 Last Admin: 05/07/20 04:12 Dose: 3 ml Documented by: Cephalexin (Keflex) 500 mg PO ONETIME ONE Stop: 05/07/20 02:55 Last Admin: 05/07/20 03:25 Dose: 500 mg Documented by: Furosemide (Lasix) 40 mg IVPUSH NOW ONE Stop: 05/08/20 08:01 Last Admin: 05/08/20 08:15 Dose: 40 mg Documented by: Lactated Ringer's (Ringers, Lactated) 1,000 mls @ 999 mls/hr IV .BOLUS ONE Stop: 05/07/20 05:25 Last Admin: 05/07/20 04:31 Dose: 999 mls/hr Documented by: Piperacillin Sod/Tazobactam (Sod 4.5 gm/ Sodium Chloride) 100 mls @ 200 mls/hr IV ONETIME ONE Stop: 05/07/20 06:11 Last Admin: 05/07/20 06:01 Dose: 200 mls/hr Documented by: Lactated Ringer's (Ringers, Lactated) 1,000 mls @ 150 mls/hr IV ASDIRECTED [facility] Last Admin: 05/07/20 14:09 Dose: 150 mls/hr Documented by: Lactated Ringer's (Ringers, Lactated) 1,000 mls @ 999 mls/hr IV .BOLUS ONE Stop: 05/07/20 06:46 Last Admin: 05/07/20 05:51 Dose: 999 mls/hr Documented by: Sodium Chloride (Normal Saline) 100 mls @ 75 mls/hr IV ASDIRECTED [facility] Last Admin: 05/07/20 08:26 Dose: 75 mls/hr Documented by: Lactated Ringer's (Ringers, Lactated) 1,000 mls @ 100 mls/hr IV ASDIRECTED [facility] Vancomycin HCl 1 gm/ Sodium (Chloride) 250 mls @ 250 mls/hr IV Q12HR [facility] Piperacillin Sod/Tazobactam (Sod 4.5 gm/ Sodium Chloride) 100 mls @ 200 mls/hr IV ONETIME ONE Stop: 05/07/20 18:44 Last Admin: 05/07/20 18:41 Dose: 200 mls/hr Documented by: Vancomycin HCl 1.5 gm/ Sodium (Chloride) 500 mls @ 250 mls/hr IV Q24H [facility] Last Admin: 05/08/20 21:38 Dose: 250 mls/hr Documented by: Sodium Chloride (Normal Saline) 250 mls @ 100 mls/hr IV ASDIRECTED [facility] Lactated Ringer's (Ringers, Lactated) 1,000 mls @ 50 mls/hr IV ASDIRECTED [facility] Last Admin: 05/08/20 00:08 Dose: 50 mls/hr Documented by: Sodium Chloride (Normal Saline) 250 mls @ 25 mls/hr IV ASDIRECTED [facility] Last Admin: 05/07/20 22:00 Dose: 25 mls/hr Documented by: Vancomycin HCl 1 gm/Vancomycin HCl 500 mg/ Sodium Chloride 500 mls @ 250 mls/hr IV Q24H [facility] Last Admin: 05/09/20 20:14 Dose: 250 mls/hr Documented by: Vancomycin HCl 1 gm/Vancomycin HCl 500 mg/ Sodium Chloride 500 mls @ 250 mls/hr IV Q24H [facility] Last Admin: 05/10/20 00:23 Dose: 250 mls/hr Documented by: Sodium Chloride (Normal Saline) 1,000 mls @ 50 mls/hr IV ASDIRECTED [facility] Last Admin: 05/10/20 11:24 Dose: 50 mls/hr Documented by: Iopamidol (Isovue-370 (76%)) 100 ml IVPUSH ONETIME ONE Stop: 05/07/20 07:56 Last Admin: 05/07/20 08:26 Dose: 100 ml Documented by: Vancomycin HCl (Pharmacy To Dose - Vancomycin) 1 dose .XX ASDIRECTED PRN PRN Reason: PHARMACY TO DOSE VANCO - Exam Quality Assessment: Reports: DVT Prophylaxis General: Reports: Alert, Cooperative, No Acute Distress. Denies: Oriented HEENT: Reports: Pupils Equal, Pupils Reactive, Mucous Membr. Moist/Sylvia Neck: Reports: Supple, Trachea Midline Lungs: Reports: Clear to Auscultation, Normal Respiratory Effort Cardiovascular: Reports: Regular Rate, Regular Rhythm GI/Abdominal Exam: Normal Bowel Sounds, Soft, Non-Tender, No Distention (Male) Exam: Deferred Rectal (Males) Exam: Deferred Back Exam: Reports: Normal Inspection, Full Range of Motion. Denies: CVA Tenderness (L), CVA Tenderness (R) Extremities: Normal Inspection, Normal Range of Motion, Non-Tender Skin: Reports: Warm, Dry, Intact Neurological: Reports: No New Focal Deficit Psy/Mental Status: Reports: Alert, Normal Affect, Normal Mood
== END 2020-05-13 15:10 | disposition other institution (70) | DRG 698 ==
LOC: JD.ED 22:35 → SUPCPDRO 22:35 → JD.MS 05-07 07:43
PROVIDERS: ADMIT Internal Medicine; ATTEND Internal Medicine
PROC: 30233N1 Transfusion of Nonautologous Red Blood Cells into Peripheral Vein, Percutaneous Approach (ICD-10-PCS; principal; 2020-05-07)
DX: T83.511A Infection and inflammatory reaction due to indwelling urethral catheter, initial encounter (principal); A41.9 Sepsis, unspecified organism; R65.20 Severe sepsis without septic shock; G72.81 Critical illness myopathy; H91.93 Unspecified hearing loss, bilateral; N17.9 Acute kidney failure, unspecified; D62 Acute posthemorrhagic anemia; N39.0 Urinary tract infection, site not specified; H40.9 Unspecified glaucoma; H35.30 Unspecified macular degeneration; E78.5 Hyperlipidemia, unspecified; Z88.1 Allergy status to other antibiotic agents; I10 Essential (primary) hypertension; N40.0 Benign prostatic hyperplasia without lower urinary tract symptoms; R91.8 Other nonspecific abnormal finding of lung field; I95.9 Hypotension, unspecified; Z20.828 Contact with and (suspected) exposure to other viral communicable diseases; H91.90 Unspecified hearing loss, unspecified ear; H54.7 Unspecified visual loss; E78.00 Pure hypercholesterolemia, unspecified; Z87.891 Personal history of nicotine dependence; Z98.49 Cataract extraction status, unspecified eye; Q63.1 Lobulated, fused and horseshoe kidney; Z97.4 Presence of external hearing-aid; Z91.81 History of falling; Z86.73 Personal history of transient ischemic attack (TIA), and cerebral infarction without residual deficits; Z79.899 Other long term (current) drug therapy; Z79.82 Long term (current) use of aspirin
CPT/HCPCS: 36415 ×2; 70450; 71045; 80053; 81001; 83605; 83735; 84100; 84145; 84484; 85025; 85610; 85730; 86738; 87040 ×2; 87077 ×2; 87086; 87088 ×3; 87184 ×2; 87186 ×5; 93005; 94640; 96361; 96365; 99285; A9270; J2543; J7050; J7120 ×3; U0002; 36430; 36600; 51798; 71275; 71275-26; 80048; 82803; 86850; 86900; 86901; 86922; 87641; 87899; 93306; 94760; 97110-GO; 97110-GP; 97116-GP; 97162-GP; 97166-GO; 97530-GO; 97530-GP; 97535-GO; J1940; J3370; J7030; J7040; J7620-GY; P9016; Q9967